=== PATIENT | male | born 1955 | race Caucasian/White ===

== ENCOUNTER 2018-03-13 19:00 | Emergency (ER) | payer MEDICARE, OTHER ==
[2018-03-13] MEDS ORDERED: SODIUM CHLORIDE 0.9% 500 ML 500 ML IV STA (19:54)
[2018-03-13] MEDS ORDERED: IPRATROPIUM-ALBUTEROL 3 ML NEB INHALATION STA (19:55)
--- NOTE | 2018-03-13 20:09 | ED ---
General Adult HPI - General Source: patient, RN notes reviewed Mode of arrival: wheelchair Limitations: no limitations <Lee Scott - Last Filed: 03/13/18 21:01> <Ryan Montalvo - Last Filed: 03/14/18 00:44> - General Chief complaint: Syncope Stated complaint: Abd/groin pain, vomting Time Seen by Provider: 03/13/18 19:00 - History of Present Illness Initial comments: This is a 63-year-old male with a past medical history significant for hypertension. Patient comes in today because he woke up yesterday had the dry heaves states she laid back in bed in the next thing he knows it was about 7 hours later. Patient states he doesn't know if he was unconscious or just sleeping. Patient states it occurred again today he woke up at 10:30 had the dry heaves and then laid back in about 5 hours later he woke up. Patient states when he wakes up he feels fine he has no chest pain no difficulty breathing no shortness of breath. Patient states currently his only symptom is that he feels a little weak diffusely because he has not been able to eat or drink lately because it makes him nauseous. Patient states usually he stays up late until 2:00 or so in the morning. Patient denies any fever chills. Patient states he continues to smoke. Patient denies any drug use. Patient states earlier today he noted a little right lower quadrant abdominal pain as well and still at hurts if you palpate that area. Patient denies dysuria hematuria urinary frequency. (Lee Scott) - Related Data Home Medications Medication Instructions Recorded Confirmed Aspirin 325 mg PO HS 03/13/18 03/13/18 Levocetirizine Dihydrochloride 5 mg PO HS 03/13/18 03/13/18 [Xyzal] Lisinopril [Zestril] 10 mg PO HS 03/13/18 03/13/18 Vitamin D3(Unknown) 2 tab PO DAILY 03/13/18 03/13/18 Allergies Allergy/AdvReac Type Severity Reaction Status Date / Time No Known Allergies Allergy Verified 03/13/18 20:00 Review of Systems ROS Other: All systems not noted in ROS Statement are negative. <Lee Scott - Last Filed: 03/13/18 21:01> ROS Other: All systems not noted in ROS Statement are negative. <Ryan Montalvo - Last Filed: 03/14/18 00:44> ROS Statement: Those systems with pertinent positive or pertinent negative responses have been documented in the HPI. Past Medical History Past Medical History: Coronary Artery Disease (CAD), Hypertension, Myocardial Infarction ([place]) History of Any Multi-Drug Resistant Organisms: None Reported Past Surgical History: Back Surgery, Orthopedic Surgery Past Psychological History: Depression Smoking Status: Current every day smoker Past Alcohol Use History: None Reported Past Drug Use History: Marijuana <Lee Scott - Last Filed: 03/13/18 21:01> General Exam Limitations: no limitations <Lee Scott - Last Filed: 03/13/18 21:01> <SelvinRyan - Last Filed: 03/14/18 00:44> - General Exam Comments Initial Comments: GENERAL: Patient is well-developed and well-nourished. Patient is nontoxic and well- hydrated and is in no acute distress. ENT: Neck is soft and supple. No significant lymphadenopathy is noted. Oropharynx is clear. Moist mucous membranes. Neck has full range of motion without eliciting any pain. EYES: The sclera were anicteric and conjunctiva were pink and moist. Extraocular movements were intact and pupils were equal round and reactive to light. Eyelids were unremarkable. PULMONARY: Unlabored respirations. Good breath sounds bilaterally. No audible rales rhonchi or wheezing was noted. CARDIOVASCULAR: There is a regular rate and rhythm without any murmurs gallops or rubs. ABDOMEN: Mild right lower quadrant abdominal pain No palpable organomegaly was noted. There is no palpable pulsatile mass. SKIN: Skin is clear with no lesions or rashes and otherwise unremarkable. NEUROLOGIC: Patient is alert and oriented x3. Cranial nerves II through XII are grossly intact. Motor and sensory are also intact. Normal speech, volume and content. Symmetrical smile. MUSCULOSKELETAL: Normal extremities with adequate strength and full range of motion. No lower extremity swelling or edema. No calf tenderness. LYMPHATICS: No significant lymphadenopathy is noted PSYCHIATRIC: Normal psychiatric evaluation. (Lee Scott) Vital Signs 03/13/18 03/13/18 03/13/18 19:04 20:46 21:00 Temperature 98.3 F Pulse Rate 103 H 100 102 H Respiratory 18 Rate Blood Pressure 150/100 O2 Sat by Pulse 97 Oximetry 03/13/18 03/13/18 21:16 23:45 Temperature Pulse Rate 76 69 Respiratory 20 18 Rate Blood Pressure 132/72 137/78 O2 Sat by Pulse 96 96 Oximetry Medical Decision Making - Lab Data Result diagrams: 03/13/18 20:08 03/13/18 20:08 <Lee Scott - Last Filed: 03/13/18 21:01> - Lab Data Result diagrams: 03/13/18 20:08 03/13/18 20:08 <Ryan Montalvo - Last Filed: 03/14/18 00:44> - Medical Decision Making Patient's EKG shows a normal sinus rhythm at 86 bpm AR interval is 162 QRS is 80 QT interval 322 QTC is 385. Patient's EKG shows T-wave inversions in the inferior leads II, III, and F aVF as well as precordial leads V3 through V6. Patient also has Q waves in the inferior leads II, III, and F aVF. Patient has no old EKG to compare to. Dr. Au will be taking over the care of the patient at 9 PM (Lee Scott) - Lab Data Lab Results 03/13/18 03/13/18 03/13/18 Range/Units 20:00 20:08 20:08 WBC 10.5 (3.8-10.6) k/uL RBC 5.50 (4.30-5.90) m/uL Hgb 19.0 H (13.0-17.5) gm/dL Hct 55.5 H (39.0-53.0) % MCV 101.0 H (80.0-100.0) fL MCH 34.5 (25.0-35.0) pg MCHC 34.1 (31.0-37.0) g/dL RDW 12.4 (11.5-15.5) % Plt Count 277 (150-450) k/uL Neutrophils % 71 % Lymphocytes % 19 % Monocytes % 5 % Eosinophils % 3 % Basophils % 0 % Neutrophils # 7.5 (1.3-7.7) k/uL Lymphocytes # 2.0 (1.0-4.8) k/uL Monocytes # 0.6 (0-1.0) k/uL Eosinophils # 0.3 (0-0.7) k/uL Basophils # 0.0 (0-0.2) k/uL PT (9.0-12.0) sec INR (<1.2) APTT (22.0-30.0) sec D-Dimer (<0.60) mg/L FEU Sodium (137-145) mmol/L Potassium (3.5-5.1) mmol/L Chloride (98-107) mmol/L Carbon Dioxide (22-30) mmol/L Anion Gap mmol/L BUN (9-20) mg/dL Creatinine (0.66-1.25) mg/dL Est GFR (CKD-EPI)AfAm (>60 ml/min/1.73 sqM) Est GFR (CKD-EPI)NonAf (>60 ml/min/1.73 sqM) Glucose (74-99) mg/dL Calcium (8.4-10.2) mg/dL Magnesium (1.6-2.3) mg/dL Total Bilirubin (0.2-1.3) mg/dL AST (17-59) U/L ALT (21-72) U/L Alkaline Phosphatase (38-126) U/L Total Creatine Kinase 152 (55-170) U/L CK-MB (CK-2) 1.7 (0.0-2.4) ng/mL CK-MB (CK-2) Rel Index 1.1 Troponin I <0.012 (0.000-0.034) ng/mL Total Protein (6.3-8.2) g/dL Albumin (3.5-5.0) g/dL Urine Color Yellow Urine Appearance Clear (Clear) Urine pH 6.0 (5.0-8.0) Ur Specific [place] 1.014 (1.001-1.035) Urine Protein Trace H (Negative) Urine Glucose (UA) Negative (Negative) Urine Ketones Negative (Negative) Urine Blood Moderate H (Negative) Urine Nitrite Negative (Negative) Urine Bilirubin Negative (Negative) Urine Urobilinogen 3.0 (<2.0) mg/dL Ur Leukocyte Esterase Small H (Negative) Urine RBC 33 H (0-5) /hpf Urine WBC 19 H (0-5) /hpf Amorphous Sediment Rare H (None) /hpf Urine Mucus Moderate H (None) /hpf 03/13/18 03/13/18 Range/Units 20:08 20:08 WBC (3.8-10.6) k/uL RBC (4.30-5.90) m/uL Hgb (13.0-17.5) gm/dL Hct (39.0-53.0) % MCV (80.0-100.0) fL MCH (25.0-35.0) pg MCHC (31.0-37.0) g/dL RDW (11.5-15.5) % Plt Count (150-450) k/uL Neutrophils % % Lymphocytes % % Monocytes % % Eosinophils % % Basophils % % Neutrophils # (1.3-7.7) k/uL Lymphocytes # (1.0-4.8) k/uL Monocytes # (0-1.0) k/uL Eosinophils # (0-0.7) k/uL Basophils # (0-0.2) k/uL PT 11.1 (9.0-12.0) sec INR 1.0 (<1.2) APTT 25.6 (22.0-30.0) sec D-Dimer 1.55 H (<0.60) mg/L FEU Sodium 135 L (137-145) mmol/L Potassium 4.6 (3.5-5.1) mmol/L Chloride 102 (98-107) mmol/L Carbon Dioxide 23 (22-30) mmol/L Anion Gap 10 mmol/L BUN 18 (9-20) mg/dL Creatinine 1.12 (0.66-1.25) mg/dL Est GFR (CKD-EPI)AfAm 82 (>60 ml/min/1.73 sqM) Est GFR (CKD-EPI)NonAf 71 (>60 ml/min/1.73 sqM) Glucose 119 H (74-99) mg/dL Calcium 9.9 (8.4-10.2) mg/dL Magnesium 2.3 (1.6-2.3) mg/dL Total Bilirubin 1.5 H (0.2-1.3) mg/dL AST 40 (17-59) U/L ALT 38 (21-72) U/L Alkaline Phosphatase 55 (38-126) U/L Total Creatine Kinase (55-170) U/L CK-MB (CK-2) (0.0-2.4) ng/mL CK-MB (CK-2) Rel Index Troponin I (0.000-0.034) ng/mL Total Protein 7.9 (6.3-8.2) g/dL Albumin 4.5 (3.5-5.0) g/dL Urine Color Urine Appearance (Clear) Urine pH (5.0-8.0) Ur Specific [place] (1.001-1.035) Urine Protein (Negative) Urine Glucose (UA) (Negative) Urine Ketones (Negative) Urine Blood (Negative) Urine Nitrite (Negative) Urine Bilirubin (Negative) Urine Urobilinogen (<2.0) mg/dL Ur Leukocyte Esterase (Negative) Urine RBC (0-5) /hpf Urine WBC (0-5) /hpf Amorphous Sediment (None) /hpf Urine Mucus (None) /hpf Disposition <Lee Scott - Last Filed: 03/13/18 21:01> Is patient prescribed a controlled substance at d/c from ED?: No <Ryan Montalvo - Last Filed: 03/14/18 00:44> Clinical Impression: Syncope, Vomiting Disposition: Left Against Medical Advice Condition: Undetermined Instructions: Acute Nausea and Vomiting (ED), Syncope (ED) Referrals: Dayton Neff MD [Primary Care Provider] - 1-2 days
[2018-03-13 20:22] LABS: Basophils % (A) 0 %; Eosinophils # (A) 0.3 k/uL (0-0.7); Eosinophils % (A) 3 %; Lymphocytes % (A) 19 %; MCH 34.5 pg (25.0-35.0); MCHC 34.1 g/dL (31.0-37.0); Mean Platelet Volume 7.3; Monocytes # (A) 0.6 k/uL (0-1.0); Monocytes % (A) 5 %; Neutrophils # (A) 7.5 k/uL (1.3-7.7); Neutrophils % (A) 71 %; Platelet Count 277 k/uL (150-450); RDW 12.4 % (11.5-15.5); WBC 10.5 k/uL (3.8-10.6)
[2018-03-13 20:29] LABS: HCT 55.5 % (39.0-53.0)
--- NOTE | 2018-03-13 20:35 | XR ---
EXAMINATION TYPE: XR chest 2V DATE OF EXAM: 03/13/2018 COMPARISON: 09/19/2011 HISTORY: Chest pain TECHNIQUE: Frontal and lateral views of the chest are obtained. FINDINGS: There is no heart failure nor confluent pneumonic infiltrate. Costophrenic angles are alex r. Heart size is normal. Bony thorax is intact. IMPRESSION: No active cardiopulmonary disease. Normal heart. No change.
[2018-03-13 20:40] LABS: Albumin 4.5 g/dL (3.5-5.0); Calcium 9.9 mg/dL (8.4-10.2); Magnesium 2.3 mg/dL (1.6-2.3); Potassium 4.6 mmol/L (3.5-5.1); Total Bilirubin 1.5 mg/dL (0.2-1.3); Total Protein 7.9 g/dL (6.3-8.2)
[2018-03-13 20:42] LABS: Amorphous Sediment,Urine Rare /hpf; Appearance,Urine Clear (Clear); Bilirubin,Urine Negative (Negative); Blood,Urine Moderate (Negative); Color,Urine Yellow; Glucose,Urine (UA) Negative (Negative); Ketones,Urine Negative (Negative); Leukocyte Esterase,Urine Small (Negative); Mucus,Urine Moderate /hpf; Nitrite,Urine Negative (Negative); Protein,Urine Trace (Negative); RBC,Urine 33 /hpf (0-5); Specific Gravity,Urine 1.014 (1.001-1.035); WBC,Urine 19 /hpf (0-5)
[2018-03-13 20:44] LABS: Partial Thromboplastin Time 25.6 sec (22.0-30.0); Prothrombin Time 11.1 sec (9.0-12.0)
[2018-03-13 20:48] LABS: Creatine Kinase 152 U/L (55-170)
[2018-03-13 21:01] LABS: Creatine Kinase MB 1.7 ng/mL (0.0-2.4); Troponin I <0.012 ng/mL (0.000-0.034)
[2018-03-13 21:03] LABS: D-Dimer 1.55 mg/L FEU (<0.60)
--- NOTE | 2018-03-13 22:52 | CT ---
EXAMINATION TYPE: CT ChestAbdPelvis w con DATE OF EXAM: 03/13/2018 COMPARISON: CT abdomen pelvis 09/19/2011 HISTORY: LUQ pain, nausea, groin pain, syncope CT DLP: 1916.8 mGycm Automated exposure control for dose reduction was used. CONTRAST: CT scan of the chest, abdomen and pelvis is performed without Oral Contrast and with IV Contrast, pat ient injected with 100 mL of Isovue 300. FINDINGS: The lungs are clear of infiltrate. There is no pleural effusion. There is no mediastinal adenopathy. There are no hilar masses. Heart size is normal. Thoracic aorta is intact. There is no evidence of an eurysm or dissection. There are clips from cholecystectomy. Liver spleen pancreas appear normal. Bile ducts are not dilated . The stomach appears fairly normal. There is no adrenal mass. Kidneys show satisfactory contrast opacification. There is right-sided hydronephrosis. There is a 5 m m calculus at the proximal right ureter. There is no retroperitoneal adenopathy. Bladder distends smoothly. There is no free fluid in the pelvis. There is no inguinal hernia. I see n o intestinal wall thickening. There are no dilated loops. There is 7 mm calculus in the left kidney. There is no evidence of free air. There is no mesenteric edema. I see no intestinal wall thickening. The thoracic and lumbar vertebra appear intact. There is facet arthropathy and calcified posterior di sc herniation at L4-5 with moderately severe bony spinal stenosis.: IMPRESSION: Nonobstructing left renal calculus. Right side renal obstruction and calculus at the prox imal right ureter. There is clearing of the tiny calculus in the distal right ureter compared to old exam. Severe L4-5 bony spinal stenosis unchanged.
[2018-03-14 00:38] VITALS: RESP 18
[2018-03-14 00:53] VITALS: BP 139/90; PULSE 79; TEMP 98
== END 2018-03-14 00:53 | disposition left against medical advice (07) ==
LOC: EC 19:00
DX: R55 Syncope and collapse (principal); R11.10 Vomiting, unspecified; R10.31 Right lower quadrant pain; I25.10 Atherosclerotic heart disease of native coronary artery without angina pectoris; I10 Essential (primary) hypertension; I25.2 Old myocardial infarction; F17.200 Nicotine dependence, unspecified, uncomplicated; Z98.890 Other specified postprocedural states; Z79.82 Long term (current) use of aspirin; Z79.899 Other long term (current) drug therapy
CPT/HCPCS: 36415; 94640; 93005; 85379; 80053; 82550; 82553; 83735; 84484; 85025; 85610; 85730; 81001; 71046; 71260; 74177; 99284; 96360; 96361 ×4; Q9967

== ENCOUNTER 2020-05-25 15:47 | Emergency (ER) | payer MEDICARE, OTHER ==
[2020-05-25 19:07] LABS: Appearance,Urine Clear (Clear); Bilirubin,Urine Negative (Negative); Blood,Urine Large (Negative); Color,Urine Yellow; Glucose,Urine (UA) Negative (Negative); Ketones,Urine Negative (Negative); Leukocyte Esterase,Urine Negative (Negative); Mucus,Urine Rare /hpf; Nitrite,Urine Negative (Negative); PH, Urine 5.5 (5.0-8.0); Protein,Urine 1+ (Negative); RBC,Urine >182 /hpf (0-5); Specific Gravity,Urine 1.023 (1.001-1.035); WBC,Urine 3 /hpf (0-5)
[2020-05-25] MEDS ORDERED: ONDANSETRON 4 MG/2 ML VIAL IVP STA (19:11)
[2020-05-25] MEDS ORDERED: MORPHINE SULFATE 4 MG/ML SYRINGE IV STA (19:11)
[2020-05-25] MEDS ORDERED: SODIUM CHLORIDE 0.9% 1,000 ML IV STA (19:11)
--- NOTE | 2020-05-25 19:25 | ED ---
Abdominal Pain HPI - General Chief Complaint: Abdominal Pain Stated Complaint: abd pain Time Seen by Provider: 05/25/20 19:02 Source: patient, RN notes reviewed Mode of arrival: wheelchair Limitations: no limitations - History of Present Illness Initial Comments: Patient is a 65-year-old male that presents to the emergency department complaining of left flank pain and abdominal pain. He notes that he does have a history of kidney stones in the last time he had when he had to get it surgically broken up and removed. He notes that he drinks approximately a pot of coffee in the morning 32-40 ounces of water throughout the day and then 2 cans of soda before bed daily. He noted that his pain was approximately a 8-9 out of 10 constant unrelieved over the last week. He noted that he tried at home remedy with [id number] pain medications and fluids with no relief. He was in mild distress and pain while laying in bed during exam and interview. He denied any hematuria chest pain shortness of breath headache vomiting diarrhea constipation fever fatigue chills - Related Data Home Medications Medication Instructions Recorded Confirmed lisinopriL [Zestril] 10 mg PO HS 03/13/18 05/25/20 Albuterol Inhaler [Ventolin Hfa 2 puff INHALATION RT-QID PRN 05/25/20 05/25/20 Inhaler] Aspirin EC [Ecotrin Low Dose] 81 mg PO DAILY 05/25/20 05/25/20 Atorvastatin Calcium [Lipitor] 40 mg PO DAILY 05/25/20 05/25/20 Cephalexin [Keflex] 500 mg PO Q8HR 05/25/20 05/25/20 Fluticasone Propionate [Flovent 1 puff INHALATION RT-BID 05/25/20 05/25/20 Hfa 44 mcg] Allergies Allergy/AdvReac Type Severity Reaction Status Date / Time No Known Allergies Allergy Verified 05/25/20 20:45 Review of Systems ROS Statement: Those systems with pertinent positive or pertinent negative responses have been documented in the HPI. ROS Other: All systems not noted in ROS Statement are negative. Past Medical History Past Medical History: Coronary Artery Disease (CAD), Hypertension, Myocardial Infarction ([place]) Last Myocardial Infarction Date:: 2008 History of Any Multi-Drug Resistant Organisms: None Reported Past Surgical History: Back Surgery, Orthopedic Surgery Past Anesthesia/Blood Transfusion Reactions: No Reported Reaction Past Psychological History: Depression Smoking Status: Current every day smoker Past Alcohol Use History: None Reported Past Drug Use History: Marijuana General Exam Limitations: no limitations General appearance: alert, in no apparent distress, obese Head exam: Present: atraumatic, normocephalic, normal inspection Eye exam: Present: normal appearance, PERRL, EOMI. Absent: scleral icterus, conjunctival injection, periorbital swelling ENT exam: Present: normal exam, mucous membranes moist Neck exam: Present: normal inspection. Absent: tenderness, meningismus, lymphadenopathy Respiratory exam: Present: normal lung sounds bilaterally. Absent: respiratory distress, wheezes, rales, rhonchi, stridor Cardiovascular Exam: Present: regular rate, normal rhythm, normal heart sounds. Absent: systolic murmur, diastolic murmur, rubs, gallop, clicks GI/Abdominal exam: Present: soft, tenderness (Lower abdomen, patient states general discomfort.), normal bowel sounds. Absent: distended, guarding, re bound, rigid Extremities exam: Present: normal inspection, full ROM, normal capillary refill. Absent: tenderness, pedal edema, joint swelling, calf tenderness Back exam: Present: normal inspection, CVA tenderness (L) Neurological exam: Present: alert, oriented X3, CN II-XII intact Psychiatric exam: Present: normal affect, normal mood Skin exam: Present: warm, dry, intact, normal color. Absent: rash Course Vital Signs 05/25/20 05/25/20 18:35 21:37 Temperature 98.3 F 98.1 F Pulse Rate 84 68 Respiratory 20 16 Rate Blood Pressure 178/79 158/86 O2 Sat by Pulse 97 96 Oximetry Medical Decision Making - Medical Decision Making 64-year-old male complaining of left flank pain with a history of kidney stones. Labs, KUB, 1 L normal saline, 4 mg of Zofran, 4 mg of morphine ordered. Labs: White blood cells 11.1, creatinine 1.56 elevated from previous study, large amounts red blood cells in urine. KUB showed 13 mm stone, CT of the abdomen and pelvis ordered to further evaluate. CT of abdomen and pelvis shows mild hydronephrosis, 4 mm stone in the left ureter. Case discussed with Dr. Diaz patient to discharge home with outpatient follow- up. - Lab Data Result diagrams: 05/25/20 19:29 05/25/20 19:29 Lab Results 05/25/20 05/25/20 05/25/20 Range/Units 18:40 19:29 19:29 WBC 11.1 H (3.8-10.6) k/uL RBC 5.25 (4.30-5.90) m/uL Hgb 18.5 H (13.0-17.5) gm/dL Hct 51.8 (39.0-53.0) % MCV 98.6 (80.0-100.0) fL MCH 35.2 H (25.0-35.0) pg MCHC 35.7 (31.0-37.0) g/dL RDW 12.0 (11.5-15.5) % Plt Count 238 (150-450) k/uL MPV 7.6 Neutrophils % 79 % Lymphocytes % 9 % Monocytes % 6 % Eosinophils % 4 % Basophils % 0 % Neutrophils # 8.8 H (1.3-7.7) k/uL Lymphocytes # 1.0 (1.0-4.8) k/uL Monocytes # 0.7 (0-1.0) k/uL Eosinophils # 0.4 (0-0.7) k/uL Basophils # 0.0 (0-0.2) k/uL Sodium 137 (137-145) mmol/L Potassium 4.8 (3.5-5.1) mmol/L Chloride 106 (98-107) mmol/L Carbon Dioxide 21 L (22-30) mmol/L Anion Gap 10 mmol/L BUN 15 (9-20) mg/dL Creatinine 1.56 H (0.66-1.25) mg/dL Est GFR (CKD-EPI)AfAm 54 (>60 ml/min/1.73 sqM) Est GFR (CKD-EPI)NonAf 47 (>60 ml/min/1.73 sqM) Glucose 102 H (74-99) mg/dL Calcium 9.8 (8.4-10.2) mg/dL Total Bilirubin 1.0 (0.2-1.3) mg/dL AST 31 (17-59) U/L ALT 28 (4-49) U/L Alkaline Phosphatase 89 (38-126) U/L Total Protein 7.6 (6.3-8.2) g/dL Albumin 4.4 (3.5-5.0) g/dL Lipase 98 (23-300) U/L Urine Color Yellow Urine Appearance Clear (Clear) Urine pH 5.5 (5.0-8.0) Ur Specific [place] 1.023 (1.001-1.035) Urine Protein 1+ H (Negative) Urine Glucose (UA) Negative (Negative) Urine Ketones Negative (Negative) Urine Blood Large H (Negative) Urine Nitrite Negative (Negative) Urine Bilirubin Negative (Negative) Urine Urobilinogen 3.0 (<2.0) mg/dL Ur Leukocyte Esterase Negative (Negative) Urine RBC >182 H (0-5) /hpf Urine WBC 3 (0-5) /hpf Urine Mucus Rare H (None) /hpf - Radiology Data Radiology results: report reviewed, image reviewed KUB: Nonacute abdomen. Left renal calculus is apparently increased in size compared to old exam. 13 mm rounded calcification over the lower pole left kidney. CT of the abdomen and pelvis: Left-sided hydronephrosis with obstructing calculus in the proximal left ureter. Bilateral renal calculi. Left renal calculus increased compared to old exam. There is clearing of the obstruction of the right kidney compared to old exam. Disposition Clinical Impression: Kidney stone on left side Disposition: HOME SELF-CARE Condition: Stable Instructions (If sedation given, give patient instructions): Kidney Stones (ED) Additional Instructions: Please return to the Emergency Department if symptoms worsen or any other concerns. Follow-up with primary care in 3-5 days. Consult urology. Increase fluid intake to at least a gallon. Try to avoid coffee and/or sodas. Take [id number] anti-inflammatories for pain management. Is patient prescribed a controlled substance at d/c from ED?: No Referrals: Dayton Neff MD [Primary Care Provider] - 1-2 days Time of Disposition: 22:13
[2020-05-25 19:51] LABS: Basophils % (A) 0 %; Eosinophils # (A) 0.4 k/uL (0-0.7); Eosinophils % (A) 4 %; HCT 51.8 % (39.0-53.0); HGB 18.5 gm/dL (13.0-17.5); Lymphocytes % (A) 9 %; MCH 35.2 pg (25.0-35.0); MCHC 35.7 g/dL (31.0-37.0); MCV 98.6 fL (80.0-100.0); Mean Platelet Volume 7.6; Monocytes # (A) 0.7 k/uL (0-1.0); Monocytes % (A) 6 %; Neutrophils # (A) 8.8 k/uL (1.3-7.7); Neutrophils % (A) 79 %; Platelet Count 238 k/uL (150-450); RBC 5.25 m/uL (4.30-5.90); WBC 11.1 k/uL (3.8-10.6)
--- NOTE | 2020-05-25 19:57 | XR ---
EXAMINATION TYPE: XR KUB DATE OF EXAM: 05/25/2020 COMPARISON: 03/17/2018 HISTORY: Double pain TECHNIQUE: 2 views upright FINDINGS: There is no sign of intestinal obstruction or pneumoperitoneum. Fecal pattern is normal. Heydi ng bases are clear. There is 13 mm rounded calcification over the lower pole left kidney. IMPRESSION: Nonacute abdomen. Left renal calculus is apparently increased in size compared to old exa m.
[2020-05-25 20:02] LABS: Albumin 4.4 g/dL (3.5-5.0); Calcium 9.8 mg/dL (8.4-10.2); Potassium 4.8 mmol/L (3.5-5.1); Total Protein 7.6 g/dL (6.3-8.2)
--- NOTE | 2020-05-25 21:38 | CT ---
EXAMINATION TYPE: CT abdomen pelvis wo con DATE OF EXAM: 05/25/2020 COMPARISON: 03/13/2018 HISTORY: Left flank pain CT DLP: 1304.4 mGycm Automated exposure control for dose reduction was used. Images obtained from the diaphragm to the floor the pelvis without contrast. Lung bases are clear. There is no pleural effusion. Heart size is normal. There are clips from cholecystectomy. Liver is intact. Spleen is intact. There is no evidence of panc reatic mass. Stomach is intact. The bile ducts are not dilated. Kidneys have normal size. There is bilateral renal calculi that measure up to 13 mm. There is left-si ded hydronephrosis. There is a 4 mm obstructing calculus in the proximal left ureter. The right urete r is not dilated. There is 3 mm calculus lower pole right kidney. There is no retroperitoneal adenopa thy. Bladder distends smoothly. There is no inguinal hernia. There is no mesenteric edema. There is no ascites or free air. There is no evidence of pelvic mass. T here is no bowel obstruction. There is no sign of thickened appendix. Appendix is posterior and appea rs normal. Lumbar spine is intact. Bony pelvis appears intact. IMPRESSION: Left-sided hydronephrosis with obstructing calculus in the proximal left ureter. Bilateral renal calc clary. Left renal calculus increased compared to old exam. There is clearing of the obstruction of the right kidney compared to old exam.
[2020-05-25 22:03] VITALS: BP 158/86; PULSE 68; RESP 16; TEMP 98.1
== END 2020-05-25 23:00 | disposition home or self-care (01) ==
LOC: EC 15:47
DX: N13.2 Hydronephrosis with renal and ureteral calculous obstruction (principal); I10 Essential (primary) hypertension; I25.2 Old myocardial infarction; F32.9 Major depressive disorder, single episode, unspecified; I25.10 Atherosclerotic heart disease of native coronary artery without angina pectoris; F17.200 Nicotine dependence, unspecified, uncomplicated; Z79.82 Long term (current) use of aspirin; Z79.899 Other long term (current) drug therapy
CPT/HCPCS: 36415; 80053; 83690; 85025; 81001; 74018; 74176; 99284; 96374; 96375; 96361; J2270; J2405

== ENCOUNTER 2020-05-26 18:34 | Inpatient (IN) | payer MEDICARE, OTHER ==
--- NOTE | 2020-05-26 22:20 | ED ---
Recheck HPI - General Chief Complaint: Abdominal Pain Stated Complaint: kidney stone Time Seen by Provider: 05/26/20 22:17 Source: patient, RN notes reviewed, old records reviewed Mode of arrival: wheelchair Limitations: no limitations - History of Present Illness Initial Comments: This is a 65-year-old male DF for evaluation patient Dese for evaluation of severe kidney stone pain. Intractable kidney stone pain with nausea and vomiting. Patient states pain medications at home are not working. Patient states the pain drove him to call the hospital to make comments regarding possibility of harming himself. Patient not suicidal. Is complaining of severe pain he does have history of kidney stones MD Complaint: other (Positive kidney stones) -: days(s) Returns Today for: persistent/worsening pain related to initial visit Symptoms Since Prior Visit: worsening pain Context: ran out of medication Associated Symptoms: abdominal pain Treatments Prior to Arrival: Given Pain Meds on - Related Data Home Medications Medication Instructions Recorded Confirmed lisinopriL [Zestril] 10 mg PO HS 03/13/18 05/26/20 Albuterol Inhaler [Ventolin Hfa 2 puff INHALATION RT-QID PRN 05/25/20 05/26/20 Inhaler] Aspirin EC [Ecotrin Low Dose] 81 mg PO HS 05/25/20 05/27/20 Atorvastatin Calcium [Lipitor] 40 mg PO HS 05/25/20 05/27/20 Fluticasone Propionate [Flovent 1 puff INHALATION RT-BID 05/25/20 05/26/20 Hfa 44 mcg] Allergies Allergy/AdvReac Type Severity Reaction Status Date / Time No Known Allergies Allergy Verified 05/26/20 23:32 Review of Systems ROS Statement: Those systems with pertinent positive or pertinent negative responses have been documented in the HPI. ROS Other: All systems not noted in ROS Statement are negative. Past Medical History Past Medical History: Coronary Artery Disease (CAD), Hypertension, Myocardial Infarction ([place]) Additional Past Medical History / Comment(s): kidney stones Last Myocardial Infarction Date:: 2008 History of Any Multi-Drug Resistant Organisms: None Reported Past Surgical History: Back Surgery, Orthopedic Surgery Past Anesthesia/Blood Transfusion Reactions: No Reported Reaction Past Psychological History: Depression Smoking Status: Current every day smoker Past Alcohol Use History: None Reported Past Drug Use History: Marijuana General Exam Limitations: no limitations General appearance: alert, in no apparent distress, anxious, in distress (Pain control) Head exam: Present: atraumatic, normocephalic, normal inspection Eye exam: Present: normal appearance, PERRL, EOMI. Absent: scleral icterus, conjunctival injection, periorbital swelling ENT exam: Present: normal exam, mucous membranes moist Neck exam: Present: normal inspection. Absent: tenderness, meningismus, lymphadenopathy Respiratory exam: Present: normal lung sounds bilaterally. Absent: respiratory distress, wheezes, rales, rhonchi, stridor Cardiovascular Exam: Present: regular rate, normal rhythm, normal heart sounds. Absent: systolic murmur, diastolic murmur, rubs, gallop, clicks GI/Abdominal exam: Present: soft, normal bowel sounds. Absent: distended, tenderness, guarding, rebound, rigid Extremities exam: Present: normal inspection, full ROM, normal capillary refill. Absent: tenderness, pedal edema, joint swelling, calf tenderness Back exam: Present: normal inspection Neurological exam: Present: alert, oriented X3, CN II-XII intact Psychiatric exam: Present: normal affect, normal mood Skin exam: Present: warm, dry, intact, normal color. Absent: rash Course Vital Signs 05/26/20 05/27/20 05/27/20 19:41 02:23 03:00 Temperature 99.4 F 97.6 F Pulse Rate 78 77 77 Respiratory 20 16 16 Rate Blood Pressure 156/94 106/87 O2 Sat by Pulse 98 98 98 Oximetry 05/27/20 05/27/20 08:57 14:37 Temperature 98.0 F 98.0 F Pulse Rate 60 68 Respiratory 18 18 Rate Blood Pressure 120/75 152/76 O2 Sat by Pulse 97 99 Oximetry - Reevaluation(s) Reevaluation #1: Medical record is reviewed Patient with intractable pain here in the ER Spoke patient regarding findings and results questions answered - Consultations Consultation #1: Spoke with Dr. Neff who agrees to admit this patient Medical Decision Making - Medical Decision Making 65 male with multiple kidney stones. Patient be admitted secondary to intractable pain, nephrology evaluation probably - Lab Data Result diagrams: 05/29/20 15:04 05/29/20 15:04 Lab Results 05/26/20 05/26/20 05/26/20 Range/Units 23:21 23:21 23:21 WBC 10.0 (3.8-10.6) k/uL RBC 5.20 (4.30-5.90) m/uL Hgb 18.3 H (13.0-17.5) gm/dL Hct 51.0 (39.0-53.0) % MCV 98.0 (80.0-100.0) fL MCH 35.2 H (25.0-35.0) pg MCHC 35.9 (31.0-37.0) g/dL RDW 11.8 (11.5-15.5) % Plt Count 243 (150-450) k/uL MPV 7.6 Neutrophils % 73 % Lymphocytes % 16 % Monocytes % 7 % Eosinophils % 2 % Basophils % 0 % Neutrophils # 7.4 (1.3-7.7) k/uL Lymphocytes # 1.6 (1.0-4.8) k/uL Monocytes # 0.7 (0-1.0) k/uL Eosinophils # 0.2 (0-0.7) k/uL Basophils # 0.0 (0-0.2) k/uL PT 11.5 (9.0-12.0) sec INR 1.1 (<1.2) APTT 23.7 (22.0-30.0) sec Sodium (137-145) mmol/L Potassium (3.5-5.1) mmol/L Chloride (98-107) mmol/L Carbon Dioxide (22-30) mmol/L Anion Gap mmol/L BUN (9-20) mg/dL Creatinine (0.66-1.25) mg/dL Est GFR (CKD-EPI)AfAm (>60 ml/min/1.73 sqM) Est GFR (CKD-EPI)NonAf (>60 ml/min/1.73 sqM) Glucose (74-99) mg/dL Calcium (8.4-10.2) mg/dL Total Bilirubin (0.2-1.3) mg/dL AST (17-59) U/L ALT (4-49) U/L Alkaline Phosphatase (38-126) U/L Total Protein (6.3-8.2) g/dL Albumin (3.5-5.0) g/dL Amylase (30-110) U/L Lipase (23-300) U/L Urine Color Yellow Urine Appearance Cloudy (Clear) Urine pH 5.5 (5.0-8.0) Ur Specific [place] 1.029 (1.001-1.035) Urine Protein 1+ H (Negative) Urine Glucose (UA) Negative (Negative) Urine Ketones 2+ H (Negative) Urine Blood Large H (Negative) Urine Nitrite Negative (Negative) Urine Bilirubin Negative (Negative) Urine Urobilinogen 2.0 (<2.0) mg/dL Ur Leukocyte Esterase Negative (Negative) Urine RBC >182 H (0-5) /hpf Urine WBC 7 H (0-5) /hpf Urine Mucus Rare H (None) /hpf Coronavirus (PCR) (Not Detectd) 05/26/20 05/26/20 Range/Units 23:21 23:21 WBC (3.8-10.6) k/uL RBC (4.30-5.90) m/uL Hgb (13.0-17.5) gm/dL Hct (39.0-53.0) % MCV (80.0-100.0) fL MCH (25.0-35.0) pg MCHC (31.0-37.0) g/dL RDW (11.5-15.5) % Plt Count (150-450) k/uL MPV Neutrophils % % Lymphocytes % % Monocytes % % Eosinophils % % Basophils % % Neutrophils # (1.3-7.7) k/uL Lymphocytes # (1.0-4.8) k/uL Monocytes # (0-1.0) k/uL Eosinophils # (0-0.7) k/uL Basophils # (0-0.2) k/uL PT (9.0-12.0) sec INR (<1.2) APTT (22.0-30.0) sec Sodium 135 L (137-145) mmol/L Potassium 4.8 (3.5-5.1) mmol/L Chloride 103 (98-107) mmol/L Carbon Dioxide 20 L (22-30) mmol/L Anion Gap 12 mmol/L BUN 20 (9-20) mg/dL Creatinine 1.78 H (0.66-1.25) mg/dL Est GFR (CKD-EPI)AfAm 46 (>60 ml/min/1.73 sqM) Est GFR (CKD-EPI)NonAf 40 (>60 ml/min/1.73 sqM) Glucose 83 (74-99) mg/dL Calcium 9.5 (8.4-10.2) mg/dL Total Bilirubin 1.2 (0.2-1.3) mg/dL AST 33 (17-59) U/L ALT 23 (4-49) U/L Alkaline Phosphatase 81 (38-126) U/L Total Protein 7.6 (6.3-8.2) g/dL Albumin 4.4 (3.5-5.0) g/dL Amylase 86 (30-110) U/L Lipase 86 (23-300) U/L Urine Color Urine Appearance (Clear) Urine pH (5.0-8.0) Ur Specific [place] (1.001-1.035) Urine Protein (Negative) Urine Glucose (UA) (Negative) Urine Ketones (Negative) Urine Blood (Negative) Urine Nitrite (Negative) Urine Bilirubin (Negative) Urine Urobilinogen (<2.0) mg/dL Ur Leukocyte Esterase (Negative) Urine RBC (0-5) /hpf Urine WBC (0-5) /hpf Urine Mucus (None) /hpf Coronavirus (PCR) Not Detected (Not Detectd) - Radiology Data Radiology results: report reviewed (X-ray KUB negative for acute disease), image reviewed Disposition Clinical Impression: Abdominal pain, Intractable pain, Kidney stone on left side, Kidney stone on right side Disposition: ADMITTED IP TO THIS [facility] Condition: Good Is patient prescribed a controlled substance at d/c from ED?: No
[2020-05-26] MEDS ORDERED: SODIUM CHLORIDE 0.9% 1,000 ML IV STA ×2 (22:46)
[2020-05-26] MEDS ORDERED: PANTOPRAZOLE 40 MG/10 ML VIAL IVP STA (22:46)
[2020-05-26] MEDS ORDERED: MORPHINE SULFATE 4 MG/ML SYRINGE IV STA (22:46)
[2020-05-26] MEDS ORDERED: TAMSULOSIN 0.4 MG CAP.ER.24H PO STA (22:46)
[2020-05-26] MEDS ORDERED: SODIUM CHLORIDE 0.9% 1,000 ML IV ONE (22:46)
[2020-05-26] MEDS ORDERED: SODIUM CHLORIDE 0.9% 500 ML 500 ML IV STA (22:46)
[2020-05-26] MEDS ORDERED: ONDANSETRON 4 MG/2 ML VIAL IVP STA (22:46)
[2020-05-26] MEDS ORDERED: KETOROLAC 15 MG/ML 1 ML VIAL IVP STA (22:46)
[2020-05-27 00:29] LABS: Basophils % (A) 0 %; Eosinophils # (A) 0.2 k/uL (0-0.7); Eosinophils % (A) 2 %; HGB 18.3 gm/dL (13.0-17.5); Lymphocytes # (A) 1.6 k/uL (1.0-4.8); Lymphocytes % (A) 16 %; MCH 35.2 pg (25.0-35.0); MCHC 35.9 g/dL (31.0-37.0); Mean Platelet Volume 7.6; Monocytes # (A) 0.7 k/uL (0-1.0); Monocytes % (A) 7 %; Neutrophils # (A) 7.4 k/uL (1.3-7.7); Neutrophils % (A) 73 %; Platelet Count 243 k/uL (150-450); RDW 11.8 % (11.5-15.5)
[2020-05-27 00:32] LABS: Appearance,Urine Cloudy (Clear); Bilirubin,Urine Negative (Negative); Blood,Urine Large (Negative); Color,Urine Yellow; Glucose,Urine (UA) Negative (Negative); Ketones,Urine 2+ (Negative); Leukocyte Esterase,Urine Negative (Negative); Mucus,Urine Rare /hpf; Nitrite,Urine Negative (Negative); PH, Urine 5.5 (5.0-8.0); Protein,Urine 1+ (Negative); RBC,Urine >182 /hpf (0-5); Specific Gravity,Urine 1.029 (1.001-1.035); WBC,Urine 7 /hpf (0-5)
[2020-05-27 00:33] LABS: Albumin 4.4 g/dL (3.5-5.0); Calcium 9.5 mg/dL (8.4-10.2); Total Bilirubin 1.2 mg/dL (0.2-1.3); Total Protein 7.6 g/dL (6.3-8.2)
[2020-05-27 00:35] LABS: Potassium 4.8 mmol/L (3.5-5.1)
[2020-05-27 00:40] LABS: INR 1.1 (<1.2); Partial Thromboplastin Time 23.7 sec (22.0-30.0); Prothrombin Time 11.5 sec (9.0-12.0)
--- NOTE | 2020-05-27 01:20 | XR ---
EXAM: XR Abdomen, 1 View CLINICAL HISTORY: ITS.REASON XR Reason: abdominal pain TECHNIQUE: Frontal upright view of the abdomen/pelvis. COMPARISON: 05/25/2020 FINDINGS: Intraperitoneal space: No pneumoperitoneum. Gastrointestinal tract: Moderate stool in the ascending colon is not appreciably altered. Nonspecific bowel gas pattern with slightly prominent small bowel gas in the right abdomen. Scattered gas collections throughout nondilated colon are identified with some gas in the central pelvis, presumably in the region of the distal rectosigmoid colon. Organs: Cholecystectomy clips noted in the right upper quadrant. Bones/joints: Unremarkable. Soft tissues: Postoperative changes consistent with prior abdominal wall hernia overlying the midline and right pelvis. IMPRESSION: No significant alteration from the previous examination. Nonspecific, nonobstructive bowel gas pattern with slightly prominent small bowel gas. Differential consideration includes normal variation versus enteritis. No pneumoperitoneum.
[2020-05-27] MEDS: MORPHINE SULFATE 4 MG/ML SYRINGE IVP PRN (08:53)
[2020-05-27] MEDS: TAMSULOSIN 0.4 MG CAP.ER.24H PO SCH (08:54)
[2020-05-27] MEDS: FLUTICASONE 44 MCG INHALER INHALATION SCH (19:17)
[2020-05-27] MEDS: lisinopriL 10 MG TAB PO SCH (21:07)
--- NOTE | 2020-05-27 22:04 | PN ---
PROGRESS NOTE CHIEF COMPLAINT: Flank pain and history of renal calculi. HISTORY OF PRESENT ILLNESS: This gentleman is still quite uncomfortable. He has had no fever, chills, vomiting etc. PHYSICAL EXAMINATION: Chest is clear. Cardiac exam is normal. The abdomen is not protuberant. He is tender in the left flank. IMPRESSION: Left ureteral calculus. PLAN: Continue with IV fluids and analgesics and watch to see if the stone progresses. MMODL / IJN: [id number] /
--- NOTE | 2020-05-27 22:18 | HP ---
HISTORY AND PHYSICAL CHIEF COMPLAINT: Left flank pain. HISTORY OF PRESENT ILLNESS: This is another admission for this 65-year-old obese male. He presented to the emergency room with left flank pain and apparently went home and then came back not being able to tolerate the pain. He has history of COPD, hyperlipidemia and anemia. REVIEW OF SYSTEMS: He denies fever and chills. nausea, vomiting, hematuria, chest pain, shortness of breath, chest, diabetes, etc. Past medical history, family history, personal and social histories reveal he is on lisinopril 10 mg once a day, Lipitor 40 once a day, vitamin D, Flovent, Ventolin, trazodone, and aspirin. He is ALLERGIC to PULMICORT INHALER. He does continue to smoke but does not drink. PHYSICAL EXAMINATION: Blood pressure is 140/95 with a pulse of 98, respirations of 36. He is afebrile. In general, he appeared to be obese and quite uncomfortable. Skin color is normal. Skin was dry. Head, ears, eyes, nose, mouth and throat were normal. Neck was normal. Neck veins could not be assessed. Chest demonstrated decreased breath sounds with scattered rales and occasional rhonchi. Cardiac exam demonstrates sinus rhythm with no murmurs or extra sounds. The abdomen is protuberant and soft, nontender without visceromegaly. He is tender in the flank. Extremities are normal. Neurological: He is intact. IMPRESSION: He is admitted to the hospital with diagnoses: 1. Left ureteral calculus. 2. Chronic obstructive pulmonary disease. 3. Hypertension. 4. Obesity. PLAN: 1. Bed rest. 2. IV fluids. 3. Analgesics. ODL / IJN: [id number] /
[2020-05-28] MEDS: MORPHINE SULFATE 4 MG/ML SYRINGE IVP PRN ×3 (07:37→15:10)
[2020-05-28] MEDS: TAMSULOSIN 0.4 MG CAP.ER.24H PO SCH (07:37)
[2020-05-28] MEDS: FLUTICASONE 44 MCG INHALER INHALATION SCH ×2 (08:02→19:48)
[2020-05-28] MEDS ORDERED: ATORVASTATIN 40 MG TAB PO SCH (09:00)
[2020-05-28] MEDS ORDERED: ASPIRIN 81 MG PO SCH (09:00)
[2020-05-28] MEDS: SODIUM CHLORIDE 0.9% 1,000 ML IV SCH (11:15)
[2020-05-28] MEDS: ATORVASTATIN 40 MG TAB PO SCH (20:34)
[2020-05-28] MEDS: lisinopriL 10 MG TAB PO SCH (20:34)
[2020-05-28] MEDS: ASPIRIN 81 MG PO SCH (20:34)
[2020-05-29] MEDS: MORPHINE SULFATE 4 MG/ML SYRINGE IVP PRN ×6 (00:05→23:21)
[2020-05-29] MEDS: SODIUM CHLORIDE 0.9% 1,000 ML IV SCH ×4 (04:30→23:24)
[2020-05-29] MEDS: TAMSULOSIN 0.4 MG CAP.ER.24H PO SCH (07:37)
[2020-05-29] MEDS: FLUTICASONE 44 MCG INHALER INHALATION SCH ×2 (09:03→19:21)
--- NOTE | 2020-05-29 14:23 | US ---
EXAMINATION TYPE: US kidneys/renal and bladder DATE OF EXAM: 05/29/2020 COMPARISON: NONE CLINICAL HISTORY: L. ureteral calculus progress. history of kidney stones EXAM MEASUREMENTS: Right Kidney: 12.0 x 5.9 x 5.1 cm Left Kidney: 12.7 x 5.7 x 4.7 cm Right Kidney: mild hydronephrosis Left Kidney: stone mid = 1.3cm, mild hydronephrosis Bladder: appears wnl Bilateral Jets seen: no IMPRESSION: There is mild bilateral hydronephrosis. There is 1.3 cm left renal calculus at the renal pelvis. No e vidence of a bladder mass.
[2020-05-29 15:39] LABS: Basophils % (A) 1 %; Eosinophils # (A) 0.5 k/uL (0-0.7); Eosinophils % (A) 9 %; Lymphocytes # (A) 1.2 k/uL (1.0-4.8); Lymphocytes % (A) 23 %; MCH 34.2 pg (25.0-35.0); MCHC 34.8 g/dL (31.0-37.0); MCV 98.2 fL (80.0-100.0); Mean Platelet Volume 7.5; Monocytes # (A) 0.3 k/uL (0-1.0); Monocytes % (A) 5 %; Neutrophils # (A) 3.4 k/uL (1.3-7.7); Neutrophils % (A) 62 %; Platelet Count 224 k/uL (150-450); RBC 4.69 m/uL (4.30-5.90); RDW 11.6 % (11.5-15.5); WBC 5.4 k/uL (3.8-10.6)
--- NOTE | 2020-05-29 15:50 | PN ---
PROGRESS NOTE DATE OF SERVICE: 05/28/2020 CHIEF COMPLAINT: Impacted left ureteral calculus. HISTORY OF PRESENT ILLNESS: This gentleman is fairly well but he is still having some discomfort and the pain has not generally moved down or around the torso. He has had no fever or chills. PHYSICAL EXAMINATION: Chest is clear. Cardiac exam is normal. Abdomen is soft, nontender. IMPRESSION: Left ureteral calculus. PLAN: Continue with analgesics and continue to monitor. MMODL / IJN: [id number] /
[2020-05-29 16:04] LABS: ALT 20 U/L (4-49); AST 31 U/L (17-59); African American GFR (CKD) 67 (>60 ml/min/1.73 sqM); Albumin 3.7 g/dL (3.5-5.0); Albumin/Globulin Ratio 1.4; Alkaline Phosphatase 59 U/L (38-126); Anion Gap 7 mmol/L; Blood Urea Nitrogen 17 mg/dL (9-20); Calcium 8.9 mg/dL (8.4-10.2); Carbon Dioxide 26 mmol/L (22-30); Chloride 105 mmol/L (98-107); Globulin 2.7 g/dL; Glucose 113 mg/dL (74-99); Non-African American GFR(CKD) 58 (>60 ml/min/1.73 sqM); Potassium 4.3 mmol/L (3.5-5.1); Sodium 138 mmol/L (137-145); Total Bilirubin 0.8 mg/dL (0.2-1.3); Total Protein 6.4 g/dL (6.3-8.2)
--- NOTE | 2020-05-29 16:07 | PN ---
PROGRESS NOTE DATE OF SERVICE: 05/29/2020 CHIEF COMPLAINT: Persistent left-sided flank pain. HISTORY OF PRESENT ILLNESS: This gentleman's discomfort scale is a little bit worse. There has not been any a significant change in the symptoms to suggest movement of the calculus. PHYSICAL EXAMINATION: He is afebrile. Chest is clear. Cardiac exam is normal. The abdomen is protuberant and soft. He is tender in the left flank. IMPRESSION: Left ureteral calculus. PLAN: Ultrasound of the abdomen looking for progress regarding movement of this stone. If it has not moved, he will have to be referred to Urology. MMODL / IJN: [id number] /
[2020-05-29] MEDS: ATORVASTATIN 40 MG TAB PO SCH (21:14)
[2020-05-29] MEDS: lisinopriL 10 MG TAB PO SCH (21:14)
[2020-05-29] MEDS: ASPIRIN 81 MG PO SCH (21:14)
[2020-05-29] MEDS: NICOTINE 21MG/24HR PATCH TRANSDERM SCH (21:14)
[2020-05-30] MEDS: TAMSULOSIN 0.4 MG CAP.ER.24H PO SCH (08:03)
[2020-05-30] MEDS: NICOTINE 21MG/24HR PATCH TRANSDERM SCH (08:03)
[2020-05-30] MEDS: MORPHINE SULFATE 4 MG/ML SYRINGE IVP PRN ×3 (08:04→17:44)
[2020-05-30] MEDS: FLUTICASONE 44 MCG INHALER INHALATION SCH ×2 (08:07→22:04)
[2020-05-30] MEDS: IOPAMIDOL CONTRAST (ORAL USE) VIAL PO PRN ×2 (10:26→11:42)
[2020-05-30] MEDS: SODIUM CHLORIDE 0.9% 1,000 ML IV SCH (11:41)
--- NOTE | 2020-05-30 12:03 | PN ---
PROGRESS NOTE CHIEF COMPLAINT: Persistent left flank pain. HISTORY OF PRESENT ILLNESS: This gentleman still complaining of pain in the left flank. He also has some discomfort on the right. He has had no hematuria, fever, chills, dysuria, etc. PHYSICAL EXAMINATION: Chest is clear and cardiac exam is normal. The abdomen is soft and nontender. Echocardiogram failed to demonstrate a ureteral calculus on either side. There was mild hydronephrosis. The etiology for this is not clear. His renal function remains quite good. IMPRESSION: 1. Left flank pain. 2. Mild bilateral hydronephrosis. PLAN: 1. Obtain CT of the abdomen and pelvis with contrast. 2. Urology consult. MMODL / IJN: [id number] /
--- NOTE | 2020-05-30 13:31 | CT ---
EXAMINATION TYPE: CT abdomen pelvis w con DATE OF EXAM: 05/30/2020 COMPARISON: 05/25/2020 and 03/13/2018. HISTORY: 65-year-old male severe back pain, hydronephrosis TECHNIQUE: Contiguous axial scanning of the abdomen and pelvis following administration of 100 ml Iso reilly 300 IV contrast. Delayed images through the kidneys and coronal/sagittal reconstructions perform ed. CT DLP: 3200.6 mGycm Automated exposure control for dose reduction was used. FINDINGS: Heart normal size without pericardial effusion. Lung bases clear without pleural effusion. Asymmetric elevation left hemidiaphragm is unchanged. No focal liver lesion or biliary ductal dilatation. Portal venous system is patent. Cholecystectomy clips. Scattered nonenlarged carolee hepatic lymph nodes measuring up to 6 mm. Otherwise, no mesenteric or re troperitoneal lymphadenopathy. Similar mild thickening of the right adrenal gland without discrete nodularity. Left adrenal gland an d spleen within normal limits. Nonobstructive 4 mm right lower pole renal calculus. 1.4 cm calculus within the left sided calyceal system and continued mild to moderate left hydronephro sis. The previous 6 mm mid ureteral calculus has progressed inferiorly to the distal third ureter. Previous ventral abdominal wall mesh repair. No dilated small bowel, free fluid, or free air. 8 mm cystic lesion along the anterior pancreatic body is unchanged from 03/13/2018 suggesting a benign etiology. No mesenteric or retroperitoneal lymphadenopathy. There is a saccular aneurysm from the right lateral wall of the infrarenal abdominal aorta measuring 3.3 cm, refer to coronal image 62. Normal appendix. Moderate stool burden. Proximal sigmoid diverticulosis. Mildly redundant sigmoid col on. No pericolonic inflammatory change. Mild circumferential bladder wall thickening. Left-sided pelvic phlebolith. Small right-sided inguina l hernia. No abnormal fluid collection in the pelvis or pelvic lymphadenopathy. Bones: Degenerative change of the hips. Facet arthropathy mid to lower lumbar spine. Disc osteophyte complex L4-L5 may cause a significant spinal canal stenosis. IMPRESSION: 1. THE PATIENT'S 6 MM LEFT URETERAL CALCULUS HAS PROGRESSED FROM THE MID URETER NOW INTO THE DISTAL T HIRD URETER. CONTINUED MILD TO MODERATE OBSTRUCTIVE UROPATHY. 2. A 1.4 CM CALCULUS REMAINS WITHIN A LEFT-SIDED CALYCEAL SYSTEM. 4 MM NONOBSTRUCTIVE RIGHT RENAL JESSICA CULUS. 3. 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 4. MODERATE STOOL BURDEN. MILD PROXIMAL SIGMOID DIVERTICULOSIS. 5. DISC OSTEOPHYTE COMPLEX AT L4-L5 MAY CAUSE A SIGNIFICANT SPINAL CANAL STENOSIS. CORRELATE WITH PAT IENT'S SYMPTOMS.
--- NOTE | 2020-05-30 15:18 | P.GSCN ---
History of Present Illness Consult date: 05/30/20 History of present illness: 65-year-old gentleman with a known history kidney stones. He has been having left-sided flank pain for the last couple weeks. On 05/26/20 he was in the emergency room where a computed tomography scan identified a 6 mm left ureteral calculus as well as a left renal calculus. He was discharged home to pass this stone spontaneously but the pain persisted and he ended up back in the hospital. He has been in the hospital since Sunday. Because of the persistence of pain I been asked see the patient. This patient has been seen by me in the past for stones. The computed tomography scan is reviewed and there is a 6 mm distal ureteral stone on the left. It is not easily seen on KUB due to his morbid obesity. He is still having pain. Review of Systems All systems: negative - Constitutional Denies fever, Denies weight loss - EENT Eyes: denies blurred vision Ears, nose, mouth and throat: Denies dysphagia - Cardiovascular Denies chest pain, Denies shortness of breath - Respiratory Denies cough, Denies 7 - Gastrointestinal Reports as per HPI - Genitourinary Denies dysuria, Denies hematuria - Integumentary Denies rash, Denies unusual bruising - Neurological Denies headaches, Denies syncope - Hematologic/Lymphatic Denies easy bleeding, Denies easy bruising Past Medical History Past Medical History: Coronary Artery Disease (CAD), Hypertension, Myocardial Infarction ([place]) Additional Past Medical History / Comment(s): kidney stones Last Myocardial Infarction Date:: 2008 History of Any Multi-Drug Resistant Organisms: None Reported Past Surgical History: Back Surgery, Orthopedic Surgery Past Anesthesia/Blood Transfusion Reactions: No Reported Reaction Past Psychological History: Depression Smoking Status: Current every day smoker Past Alcohol Use History: None Reported Past Drug Use History: Marijuana Medications and Allergies Home Medications Medication Instructions Recorded Confirmed Type lisinopriL [Zestril] 10 mg PO HS 03/13/18 05/26/20 History Albuterol Inhaler [Ventolin Hfa 2 puff INHALATION RT-QID PRN 05/25/20 05/26/20 History Inhaler] Aspirin EC [Ecotrin Low Dose] 81 mg PO HS 05/25/20 05/27/20 History Atorvastatin Calcium [Lipitor] 40 mg PO HS 05/25/20 05/27/20 History Cephalexin [Keflex] 500 mg PO Q8HR 05/25/20 05/26/20 History Fluticasone Propionate [Flovent 1 puff INHALATION RT-BID 05/25/20 05/26/20 History Hfa 44 mcg] Allergies Allergy/AdvReac Type Severity Reaction Status Date / Time No Known Allergies Allergy Verified 05/26/20 23:32 Surgical - Exam Vital Signs Temp Pulse Resp BP Pulse Ox 99.4 F 78 20 156/94 98 05/26/20 19:41 05/26/20 19:41 05/26/20 19:41 05/26/20 19:41 05/26/20 19:41 - General well developed, moderate distress, obese - Eyes PERRL - ENT no hearing loss - Neck trachea midline - Respiratory normal expansion, normal respiratory effort - Cardiovascular Rhythm: regular - Abdomen Abdomen: soft, tender - Genitourinary normal penis with no external lesions, testicles present - Neurologic normal coordination, normal sensation - Musculoskeletal normal posture - Psychiatric oriented to time, oriented to person, oriented to place, speech is normal, memory intact Results - Labs 05/29/20 15:04 05/29/20 15:04 Abnormal Lab Results - Last 24 Hours (Table) 05/29/20 Range/Units 15:04 Creatinine 1.30 H (0.66-1.25) mg/dL Glucose 113 H (74-99) mg/dL Diabetes panel 05/29/20 Range/Units 15:04 Sodium 138 (137-145) mmol/L Potassium 4.3 (3.5-5.1) mmol/L Chloride 105 (98-107) mmol/L Carbon Dioxide 26 (22-30) mmol/L BUN 17 (9-20) mg/dL Creatinine 1.30 H (0.66-1.25) mg/dL Glucose 113 H (74-99) mg/dL Calcium 8.9 (8.4-10.2) mg/dL AST 31 (17-59) U/L ALT 20 (4-49) U/L Alkaline Phosphatase 59 (38-126) U/L Total Protein 6.4 (6.3-8.2) g/dL Albumin 3.7 (3.5-5.0) g/dL Calcium panel 05/29/20 Range/Units 15:04 Calcium 8.9 (8.4-10.2) mg/dL Albumin 3.7 (3.5-5.0) g/dL Pituitary panel 05/29/20 Range/Units 15:04 Sodium 138 (137-145) mmol/L Potassium 4.3 (3.5-5.1) mmol/L Chloride 105 (98-107) mmol/L Carbon Dioxide 26 (22-30) mmol/L BUN 17 (9-20) mg/dL Creatinine 1.30 H (0.66-1.25) mg/dL Glucose 113 H (74-99) mg/dL Calcium 8.9 (8.4-10.2) mg/dL Adrenal panel 05/29/20 Range/Units 15:04 Sodium 138 (137-145) mmol/L Potassium 4.3 (3.5-5.1) mmol/L Chloride 105 (98-107) mmol/L Carbon Dioxide 26 (22-30) mmol/L BUN 17 (9-20) mg/dL Creatinine 1.30 H (0.66-1.25) mg/dL Glucose 113 H (74-99) mg/dL Calcium 8.9 (8.4-10.2) mg/dL Total Bilirubin 0.8 (0.2-1.3) mg/dL AST 31 (17-59) U/L ALT 20 (4-49) U/L Alkaline Phosphatase 59 (38-126) U/L Total Protein 6.4 (6.3-8.2) g/dL Albumin 3.7 (3.5-5.0) g/dL - Imaging CT scan - abdomen: report reviewed, image reviewed CT scan - pelvis: report reviewed, image reviewed Assessment and Plan Assessment: Impression: Left ureteral calculus with persistent colic Recommendations: Because this is been going on for over 2 weeks and he has persistent colic I will set him up for a left ureteroscopy and laser lithotripsy tomorrow. Later date we'll deal for left renal stone. The patient understands and consents to this procedure.
[2020-05-30] MEDS: ASPIRIN 81 MG PO SCH (20:27)
[2020-05-30] MEDS: ATORVASTATIN 40 MG TAB PO SCH (20:27)
[2020-05-30] MEDS: lisinopriL 10 MG TAB PO SCH (20:27)
[2020-05-31] MEDS: SODIUM CHLORIDE 0.9% 1,000 ML IV SCH ×3 (03:07→22:37)
[2020-05-31] MEDS: FLUTICASONE 44 MCG INHALER INHALATION SCH ×2 (07:20→21:28)
[2020-05-31] MEDS: NICOTINE 21MG/24HR PATCH TRANSDERM SCH (08:45)
[2020-05-31] MEDS: TAMSULOSIN 0.4 MG CAP.ER.24H PO SCH (08:45)
[2020-05-31] MEDS: MORPHINE SULFATE 4 MG/ML SYRINGE IVP PRN ×3 (08:46→23:51)
[2020-05-31] MEDS ORDERED: IV FLUID CONTINUATION 1,000 ML IV ONE (13:15)
[2020-05-31] MEDS ORDERED: GLYCOPYRROLATE 0.2 MG/ML 2 ML VIAL ONE (14:01)
[2020-05-31] MEDS ORDERED: ePHEDrine SULFATE/0.9% NACL/PF 50 MG/5 ML SYRINGE IV ONE (14:01)
[2020-05-31] MEDS ORDERED: LIDOCAINE 1% INJ 10MG/ML (20 ML MDV) ONE (14:01)
[2020-05-31] MEDS ORDERED: NEOSTIGMINE 1 MG/ML 10 ML VIAL ONE (14:01)
[2020-05-31] MEDS ORDERED: ROCURONIUM 10 MG/ML (5 ML VIAL) IV ONE (14:01)
[2020-05-31] MEDS ORDERED: fentaNYL (PF) 50 MCG/ML 2 ML AMP ONE (14:01)
[2020-05-31] MEDS ORDERED: PROPOFOL 10 MG/ML 20 ML VIAL IV ONE (14:01)
[2020-05-31] MEDS ORDERED: LACTATED RINGERS 1,000 ML IV ONE (14:34)
[2020-05-31] MEDS ORDERED: SODIUM CHLORIDE 0.9% 100 ML with ceFAZolin 2,000 MG IV ONE ×2 (14:34)
--- NOTE | 2020-05-31 15:03 | P.OP ---
Date of Procedure: 05/31/20 Preoperative Diagnosis: Left ureteral calculus with obstruction Postoperative Diagnosis: Same Procedure(s) Performed: Cystoscopy with left ureteroscopy and laser lithotripsy, 6 x 26 stent Anesthesia: MANDI Surgeon: Raimundo Snell Estimated Blood Loss (ml): 25 Pathology: other (Stone) Condition: stable Disposition: PACU Indications for Procedure: The patient is 65. He came in the hospital late last week with ureteral colic. He has a 8-9 mm distal ureteral stone on the left just below the iliac vessels causing pain. I was consult would yesterday. After discussing the situation the patient he will proceed with a left ureteroscopy with laser lithotripsy. He also has a left renal stone that will be dealt with at a second setting. Description of Procedure: The patient is brought to the operating suite. He is given a general endotracheal anesthesia. He's placed lithotomy position and sterile prep and drape. Cystoscopy Foroblique lens and 21-Alban[place] sheath identifies a normal anterior urethra. The prostatic urethra shows trilobar obstruction and a friable prostate. The bladder churchill inspected. The left ureteral orifice somewhat swollen the right is normal. The bladder mucosa is unremarkable. I cannot intubate the ureter with the miniscope I thus dilate the left ureteral orifice with a cone-tipped catheter. I then pass the 7-[place]banian mini ureteroscope up the ureter to the stone. With the 275 laser probe the stone was broken into tiny pieces and flushed out of the ureter. There is a lot of edema in the intramural tunnel from the manipulation as well as the point of stone lodging. I thus elected place a double-J catheter. An 035 wires passed through the ureteroscope up into the left renal pelvis. I remove the ureteroscope and backloaded the wire onto the cystoscope. Over the wires and passed a 6 x 26 double-J catheter that coils in the renal pelvis and the bladder the bladder strain the patient is awakened and returned recovery room good condition Impression successful left ureteroscopy laser lithotripsy. The patient be discharged home tomorrow upon recovery. He'll follow-up in the office in one week for cystoscopy stent removal.
--- NOTE | 2020-05-31 15:30 | FL ---
EXAMINATION TYPE: FL urography retrograde DATE OF EXAM: 05/31/2020 FLUOROSCOPY Fluoroscopy time of 12 seconds was used during intervention for left renal calculus. 1 image/s docum ent/s the procedure.
[2020-05-31] MEDS ORDERED: ONDANSETRON 4 MG/2 ML VIAL IVP ONE (15:42)
--- NOTE | 2020-05-31 20:43 | PN ---
PROGRESS NOTE CHIEF COMPLAINT: Flank pain. HISTORY OF PRESENT ILLNESS: This gentleman is still having discomfort. He is being seen by Urology. Ultrasound did not demonstrate a ureteral stone, but Urology feels that there is one, and he is going for cystoscopy today. PHYSICAL EXAMINATION: Abdomen is soft. Chest is clear. Cardiac exam is normal. IMPRESSION: Possible left ureteral calculus. PLAN: Cystoscopy today. MMODL / IJN: [id number] /
[2020-05-31] MEDS: lisinopriL 10 MG TAB PO SCH (22:01)
[2020-05-31] MEDS: ATORVASTATIN 40 MG TAB PO SCH (22:01)
[2020-05-31] MEDS: ASPIRIN 81 MG PO SCH (22:01)
[2020-06-01] MEDS: SODIUM CHLORIDE 0.9% 1,000 ML IV SCH (04:43)
[2020-06-01] MEDS: NICOTINE 21MG/24HR PATCH TRANSDERM SCH (08:11)
[2020-06-01] MEDS: TAMSULOSIN 0.4 MG CAP.ER.24H PO SCH (08:11)
[2020-06-01] MEDS: FLUTICASONE 44 MCG INHALER INHALATION SCH (08:55)
--- NOTE | 2020-06-01 09:30 | P.PN ---
Progress Note - Text Progress Note Date: 06/01/20 The patient underwent successful removal of his left ureteral calculus yesterday. He reports mild discomfort this morning, predominantly in the right lower quadrant. He is afebrile with stable vital signs. He reports slight hematuria, which is not unexpected. He is urologically stable for discharge and will follow up with Dr. Snell in 1 week to undergo office cystoscopy with stent removal. In the meantime, he should continue to receive tamsulosin. Please notify us if we can be of any further assistance.
[2020-06-01 11:54] VITALS: BP 128/78; PULSE 69; RESP 17; TEMP 97.8
--- NOTE | 2020-06-02 07:42 | DS ---
DISCHARGE SUMMARY CHIEF COMPLAINT: Left flank pain. HISTORY OF PRESENT ILLNESS AND PHYSICAL EXAMINATION: Details of this man's history and physical can be found in the initial workup. LABORATORY STUDIES: While he was in the hospital he had laboratory studies, details of which can be found in the laboratory section of his chart. COURSE IN THE HOSPITAL: After admission he was placed on bedrest and started on intravenous fluids and analgesics. He failed to pass the stone. An ultrasound failed to demonstrate a stone, but he was seen by Urology who felt that he still had one in his left ureter and took him to the operating room for cystoscopy and lithotripsy of the stone. He is doing well. It was felt that he could go home on the . He will go home on light activity about the house. He will be followed up in several days. FINAL DIAGNOSIS: Left ureteral calculus. OPERATIONS: Cystoscopy and lithotripsy. CONSULTATIONS: Urology. He is improved. MMODL / IJN: [id number] /
== END 2020-06-01 16:00 | disposition home health service (06) | DRG 661 ==
LOC: EC 18:34 → INTOOBSV 22:46 → 5NMEDONC 22:46 → OBSVTOIN 05-28 08:53
PROVIDERS: ADMIT Family Medicine; ATTEND Family Medicine
PROC: 0T768DZ Dilation of Right Ureter with Intraluminal Device, Via Natural or Artificial Opening Endoscopic (ICD-10-PCS; principal; 2020-05-31 08:45)
PROC: 0TC78ZZ Extirpation of Matter from Left Ureter, Via Natural or Artificial Opening Endoscopic (ICD-10-PCS; 2020-05-31 08:45)
DX: N13.2 Hydronephrosis with renal and ureteral calculous obstruction (principal); Z79.82 Long term (current) use of aspirin; Z79.51 Long term (current) use of inhaled steroids; I25.10 Atherosclerotic heart disease of native coronary artery without angina pectoris; I10 Essential (primary) hypertension; I25.2 Old myocardial infarction; Z87.442 Personal history of urinary calculi; F17.200 Nicotine dependence, unspecified, uncomplicated; J44.9 Chronic obstructive pulmonary disease, unspecified; Z20.822 Contact with and (suspected) exposure to COVID-19; E78.5 Hyperlipidemia, unspecified
CPT/HCPCS: 36415; 74018; 74176; 74177; 74420; 76770; 80053; 81001; 82150; 82365; 83690; 85025; 85610; 85730; 87635; 94640; 94760; 96360; 96361; 96374; 96375; 99284; 99285

== ENCOUNTER 2024-04-18 13:06 | Inpatient (IN) | payer MEDICARE, OTHER ==
--- NOTE | 2024-04-18 13:47 | ED ---
General Adult HPI - General Chief complaint: Fall Stated complaint: fall out of wheelchair Time Seen by Provider: 04/18/24 13:31 Source: patient, EMS, RN notes reviewed Mode of arrival: EMS Limitations: no limitations - History of Present Illness Initial comments: 69-year-old male presenting to the emergency department via EMS for chief complaint of a fall. Patient states that he was outside when he fell holding the back of his wheelchair onto his left hip. He denies hitting his head or loss conscious over the fall. States he is having severe pain in the left hip that radiates into the front of his groin. Denies blood thinner use. Denies loss of bladder bowel continence or saddle anesthesias injury. He denies syncopal events stating that he slipped. No other acute complaints at this time. - Related Data Home Medications Medication Instructions Recorded Confirmed lisinopriL [Zestril] 10 mg PO HS 03/13/18 05/26/20 Albuterol Inhaler [Ventolin Hfa 2 puff INHALATION RT-QID PRN 05/25/20 05/26/20 Inhaler] Aspirin EC [Ecotrin Low Dose] 81 mg PO HS 05/25/20 05/27/20 Atorvastatin Calcium [Lipitor] 40 mg PO HS 05/25/20 05/27/20 Fluticasone Propionate [Flovent 1 puff INHALATION RT-BID 05/25/20 05/26/20 Hfa 44 mcg] Allergies Allergy/AdvReac Type Severity Reaction Status Date / Time No Known Allergies Allergy Verified 05/26/20 23:32 Review of Systems ROS Statement: Those systems with pertinent positive or pertinent negative responses have been documented in the HPI. ROS Other: All systems not noted in ROS Statement are negative. Past Medical History Past Medical History: Coronary Artery Disease (CAD), Hypertension, Myocardial Infarction ([place]) Additional Past Medical History / Comment(s): kidney stones Last Myocardial Infarction Date:: 2008 History of Any Multi-Drug Resistant Organisms: None Reported Past Surgical History: Back Surgery, Orthopedic Surgery Past Anesthesia/Blood Transfusion Reactions: No Reported Reaction Past Psychological History: Depression Smoking Status: Current every day smoker Past Alcohol Use History: None Reported Past Drug Use History: Marijuana General Exam Limitations: no limitations General appearance: alert, in no apparent distress, obese Respiratory exam: Present: normal lung sounds bilaterally. Absent: respiratory distress, wheezes, rales, rhonchi, stridor Cardiovascular Exam: Present: regular rate, normal rhythm, normal heart sounds. Absent: systolic murmur, diastolic murmur, rubs, gallop, clicks GI/Abdominal exam: Present: soft, normal bowel sounds. Absent: distended, tenderness, guarding, rebound, rigid Left Hip exam: Present: tenderness. Absent: full ROM, swelling, abrasion, ecchymosis, deformity, crepitus Upper Leg exam: Present: normal inspection, tenderness (superior anterior leg) Lower Leg exam: Present: normal inspection Gait: not tested/not observed Back exam: Present: normal inspection Neurological exam: Present: alert, oriented X3, CN II-XII intact Course Vital Signs 04/18/24 13:07 Temperature 98.6 F Pulse Rate 78 Respiratory 16 Rate Blood Pressure 125/86 O2 Sat by Pulse 98 Oximetry Medical Decision Making - Medical Decision Making Was pt. sent in by a medical professional or institution (, PA, HIGHWAY ENGINEERING TECHNICIAN, urgent care, hospital, or senior care...) When possible be specific @ -No Did you speak to anyone other than the patient for history (EMS, parent, family, police, friend...)? What history was obtained from this source @ -No Did you review nursing and triage notes (agree or disagree)? Why? @ -I reviewed and agree with nursing and triage notes Were old charts reviewed (outside hosp., previous admission, EMS record, old EKG, old radiological studies, urgent care reports/EKG's, senior care records)? Report findings @ -No old charts were reviewed Differential Diagnosis (chest pain, altered mental status, abdominal pain women, abdominal pain men, vaginal bleeding, weakness, fever, dyspnea, syncope, head ache, dizziness, GI bleed, back pain, seizure, CVA, palpatations, mental health, musculoskeletal)? @ -Differential Musculoskeletal Muscular strain, contusion, ligament sprain, fracture, arthritis, septic arthritis, bursitis, cellulitis, muscle spasm, nerve compression, DVT, arterial occlusion, herpes zoster, electrolyte abnormality, tumor.... This is not meant to be in all inclusive list EKG interpreted by me (3pts min.). @ -none X-rays interpreted by me (1pt min.). @ -X-ray of the left hip reveals a linear lucency within the intertrochanteric region of the left proximal femur concerning for acute nondisplaced fracture CT interpreted by me (1pt min.). @ -CT of the left hip completed with a comminuted left intertrochanteric femur fracture U/S interpreted by me (1pt. min.). @ -None done What testing was considered but not performed or refused? (CT, X-rays, U/S, labs)? Why? @ -None What meds were considered but not given or refused? Why? @ -None Did you discuss the management of the patient with other professionals (professionals i.e. , PA, HIGHWAY ENGINEERING TECHNICIAN, lab, RT, psych nurse, social work manager, transmission operator, teacher, licensed loan officer assistant, skilled nursing case manager)? Give summary @ -Spoke with on-call nurse petitioner with [facility] who is excepted admission of the patient with internal medicine on consult. Was smoking cessation discussed for >3mins.? @ -No Was critical care preformed (if so, how long)? @ -No Were there social determinants of health that impacted care today? How? (Homelessness, low income, unemployed, alcoholism, drug addiction, transportat ion, low edu. Level, literacy, decrease access to med. care, fdc, rehab)? @ -No Was there de-escalation of care discussed even if they declined (Discuss DNR or withdrawal of care, Hospice)? DNR status @ -No What co-morbidities impacted this encounter? (DM, HTN, Smoking, COPD, CAD, Cancer, CVA, ARF, Chemo, Hep., AIDS, mental health diagnosis, sleep apnea, morbid obesity)? @ -None Was patient admitted / discharged? Hospital course, mention meds given and route, prescriptions, significant lab abnormalities, going to OR and other pertinent info. @ -69-year-old male presents emergency department via EMS for complaint of left hip pain. Patient has pain in left hip developed patient is unable to complete full range of motion due to pain of the left hip. He is provided with dose of pain medication. X-ray reveals a linear lucency within the intertrochanteric region concerning for acute fracture of the recommend CT imaging for further evaluation. CT is ordered concerning for intertrochanteric femur fracture. Patient will be manage orthopedics with general medicine on consult and continue pain management. Case discussed with Dr. Hanson Undiagnosed new problem with uncertain prognosis? @ -No Drug Therapy requiring intensive monitoring for toxicity (Heparin, Nitro, Insulin, Cardizem)? @ -No Were any procedures done? @ -No Diagnosis/symptom? @ -Intertrochanteric femur fracture Acute, or Chronic, or Acute on Chronic? @ -Acute Uncomplicated (without systemic symptoms) or Complicated (systemic symptoms)? @ -Complicated Side effects of treatment? @ -No Exacerbation, Progression, or Severe Exacerbation? @ -No Poses a threat to life or bodily function? How? (Chest pain, [place], [place], pneumonia, PE, COPD, DKA, ARF, appy, cholecystitis, CVA, Diverticulitis, Homicidal, Suicidal, threat to staff... and all critical care pts) @ -No Disposition Clinical Impression: Intertrochanteric fracture Disposition: ADMITTED IP TO THIS HOSP Condition: Stable Referrals: Dayton Neff MD [Primary Care Provider] - 1-2 days Decision to Admit Reason: Admit from EC Decision Date: 04/18/24 Decision Time: 16:13
[2024-04-18] MEDS: HYDROmorphone 1 MG/ML 1 ML SYRINGE IM STA (13:50)
--- NOTE | 2024-04-18 14:56 | XR ---
EXAMINATION TYPE: XR pelvis AP view, XR femur LT DATE OF EXAM: 04/18/2024 2:44 PM INDICATION: Patient age:Male; 69 years old; Reason for study: PAIN AFTER FALL; PHH. pain COMPARISON: CT abdomen and pelvis 05/30/2020 TECHNIQUE: The pelvis was examined in a single projection. The left femur was examined in frontal and lateral projections. FINDINGS: No acute fracture of the pelvic bones. There is linear lucency in the intratrochanteric reg ion of the left proximal femur. No dislocation of the hips. Osteoarthritic changes of both hips with medial joint space narrowing and acetabular sclerosis with marginal osteophytosis. No soft tissue swe lling. Degenerative changes of the visualized lumbar spine. Left-sided pelvic phlebolith. Abdominal w all hernia mesh clips identified. IMPRESSION: 1. Linear lucency within the intratrochanteric region of the left proximal femur concerning for acut e nondisplaced fracture. Recommend further evaluation with CT. 2. Moderate osteoarthritic changes of both hips. [facility], , 04/18/2024 2:54 PM
--- NOTE | 2024-04-18 15:55 | CT ---
EXAMINATION TYPE: CT hip LT wo con DATE OF EXAM: 04/18/2024 3:44 PM COMPARISON: . Extremity radiograph same day. CLINICAL INDICATION: Male, 69 years old with history of fall, pain, xr concern for fx; PHH, Fall. Lef t hip pain. Concern for FX. TECHNIQUE: Axial images were obtained of the CT hip LT wo con, Additional coronal and sagittal reform atted images and soft tissue and bone window were obtained for review. 3-D reconstruction was created on a separate workstation. Contrast used: mL of , (None if empty) Oral contrast used: (None if empty) CT DLP: 444 mGycm, Automated exposure control for dose reduction was used. FINDINGS: Comminuted fractures of the left hip through the proximal femur intertrochanteric region. T he bony pelvis is intact. The right femur appears intact. Mild degeneration changes of the hips with denser type acetabulum bilaterally. Visualized portions of the pelvis grossly unremarkable. Bilateral fat-containing inguinal hernias. The prostate gland is enlarged projected to 5.3 cm in transverse di mension. IMPRESSION: 1. Comminuted left intertrochanteric femur fracture. The pelvis appears intact. 2. Mild degeneration changes of the hips with pincer-type acetabulum. 3. Prostatomegaly correlate serum PSA. [facility], , 04/18/2024 3:53 PM
[2024-04-18] MEDS ORDERED: HYDROcodone/APAP 5-325MG 1 EACH TAB PO PRN (16:13)
[2024-04-18] MEDS ORDERED: NALOXONE 0.4 MG/ML 1 ML VIAL IV PRN (16:13)
[2024-04-18] MEDS ORDERED: ACETAMINOPHEN TAB 325 MG TAB PO PRN (16:13)
[2024-04-18 16:58] LABS: Basophils % (A) 0 %; Eosinophils # (A) 0.2 k/uL (0-0.7); Eosinophils % (A) 1 %; HCT 53.3 % (39.0-53.0); HGB 17.9 gm/dL (13.0-17.5); Lymphocytes # (A) 0.8 k/uL (1.0-4.8); Lymphocytes % (A) 5 %; MCH 33.5 pg (25.0-35.0); MCHC 33.5 g/dL (31.0-37.0); MCV 100.2 fL (80.0-100.0); Mean Platelet Volume 7.6; Monocytes # (A) 0.7 k/uL (0-1.0); Monocytes % (A) 4 %; Neutrophils # (A) 14.3 k/uL (1.3-7.7); Neutrophils % (A) 89 %; Platelet Count 262 k/uL (150-450); RBC 5.33 m/uL (4.30-5.90); RDW 12.2 % (11.5-15.5)
[2024-04-18 17:09] LABS: ALT 24 U/L (4-49); African American GFR (CKD) 71 (>60 ml/min/1.73 sqM); Albumin 4.2 g/dL (3.5-5.0); Anion Gap 9 mmol/L; Blood Urea Nitrogen 17 mg/dL (9-20); Calcium 9.4 mg/dL (8.4-10.2); Carbon Dioxide 24 mmol/L (22-30); Chloride 103 mmol/L (98-107); Glucose 108 mg/dL (74-99); Non-African American GFR(CKD) 62 (>60 ml/min/1.73 sqM); Sodium 136 mmol/L (137-145); Total Bilirubin 1.2 mg/dL (0.2-1.3); Total Protein 7.1 g/dL (6.3-8.2)
[2024-04-18 17:14] LABS: AST 33 U/L (17-59); Alkaline Phosphatase 89 U/L (38-126); Potassium 5.1 mmol/L (3.5-5.1)
--- NOTE | 2024-04-18 17:39 | XR ---
EXAMINATION TYPE: XR chest 1V DATE OF EXAM: 04/18/2024 5:24 PM COMPARISON: 03/17/2018 CLINICAL INDICATION: Male, 69 years old with history of surgical clearance, TECHNIQUE: XR chest 1V view(s) obtained. FINDINGS: The heart size is mildly prominent. The pulmonary vasculature is normal. There is silhouetting the left heart border. There is increased lung markings in the medial left lowe r lung field extending towards the diaphragm. IMPRESSION: 1. Mild cardiomegaly. 2. There may be a right middle lobe infiltrate. Clinical correlation recommended. [facility], , 04/18/2024 5:37 PM
[2024-04-18] MEDS: HYDROmorphone 0.5 MG/0.5 ML SYRINGE IVP PRN (18:04)
[2024-04-18] MEDS ORDERED: ALBUTEROL HFA INHALER INHALATION PRN (18:43)
[2024-04-18] MEDS: IPRATROPIUM-ALBUTEROL 3 ML NEB INHALATION SCH (20:34)
[2024-04-18] MEDS: lisinopriL 10 MG TAB PO SCH (21:05)
[2024-04-18] MEDS: ATORVASTATIN 40 MG TAB PO SCH (21:05)
[2024-04-18] MEDS: TAMSULOSIN 0.4 MG CAP.ER.24H PO SCH (21:05)
--- NOTE | 2024-04-18 23:52 | HP ---
HISTORY AND PHYSICAL CHIEF COMPLAINT: Fall with pain in the left hip. HISTORY OF PRESENT ILLNESS: This is the first known admission to this hospital for this 69-year-old white male. He has electric wheelchair and was trying to navigate around town with slippery and snow covered conditions. He got stuck on the windrow and tried to free himself up as well as his chair and he fell on his left hip. He has had no history of syncope, chest pain, etc., and found to have a fracture of the left hip in the emergency room. REVIEW OF SYSTEMS: He denies any headaches, neurologic problems, difficulty with vision or hearing, chest pain, etc. He does have advanced COPD and still smokes. He has sleep apnea and uses a BiPAP at night. He has not had any current chest pain or palpitations, but he does have a history of coronary artery disease, having had at least 1 stent placed sometime in the past. He is not currently having any symptoms of orthopnea, PND, etc. He has had no abdominal pain, nausea, vomiting, hematemesis, melena, hematochezia, stool incontinence, renal failure, dysuria, hematuria, frequency, urgency, nocturia, or incontinence. He does have a history of chronic kidney disease. He has been diagnosed with type 2 diabetes, but does not take anything for it. Past medical history, family history, personal and social histories reveal that he has hyperlipidemia. He does continue to smoke. He also has some difficulty with GERD, vitamin D deficiency, hypertension. MEDICATIONS: 1. Atorvastatin 40 mg once a day. 2. Lisinopril 10 mg once a day. 3. Tamsulosin 0.4 mg once a day. 4. Trelegy 1 puff once a day. 5. Ventolin HFA p.r.n. 6. Aspirin 325 once a day. 7. He does use a CPAP or BiPAP at night. He does not use oxygen. He does have Pulmicort inhaler. SOCIAL HISTORY: He does continue to smoke. PHYSICAL EXAMINATION: VITAL SIGNS: Normal. HEAD, EARS, EYES, NOSE, MOUTH AND THROAT: Normal. Face was flushed. NECK: Neck veins are not distended. CHEST: Demonstrated decreased breath sounds with scattered rales throughout. CARDIAC: Sounded like sinus rhythm with no murmurs or extra sounds. ABDOMEN: Soft, nontender without any visceromegaly or masses. EXTREMITIES: Reveal external rotation of the left leg and hip. NEUROLOGICAL: He is intact. ASSESSMENT: He is admitted to the hospital with diagnoses of, 1. Fracture of the left hip. 2. Chronic obstructive pulmonary disease. 3. Nicotine abuse. 4. History of coronary artery disease. 5. Sleep apnea. 6. History of hypertension. 7. Hyperlipidemia. PLAN: 1. Bedrest. 2. IV fluids. 3. Analgesics. 4. Orthopedic evaluation. 5. Consult with Pulmonology and Cardiology before surgery. 6. He is cleared for surgery if and when he is cleared by Pulmonology and Cardiology. MMODL / IJN: [id number] /
[2024-04-19] MEDS: SYMBICORT 160-4.5 MCG INHALER INHALATION SCH (09:37)
--- NOTE | 2024-04-19 10:24 | P.CNOR ---
History of Present Illness - [facility] Consult date: 04/19/24 Consult reason: fracture (Left hip) History of present illness: This is a 69-year-old male who presented to the emergency department via EMS on 04/18/2024 after falling and injuring his left hip. He states that he was holding onto the back of his wheelchair outside and lost his balance. He had immediate pain in the left hip upon falling. He was brought to the emergency department. On exam and x-ray he was found to have an intertrochanteric fracture of the left hip. We are consulted for orthopedic evaluation. He is admitted to our service for further evaluation and surgical intervention. The patient has past medical history of COPD, cardiac disease and history of smoking. Past Medical History Past Medical History: Coronary Artery Disease (CAD), Hypertension, Myocardial Infarction ([place]) Additional Past Medical History / Comment(s): kidney stones Last Myocardial Infarction Date:: 2008 History of Any Multi-Drug Resistant Organisms: None Reported Past Surgical History: Back Surgery, Orthopedic Surgery Past Anesthesia/Blood Transfusion Reactions: No Reported Reaction Past Psychological History: Depression Smoking Status: Current every day smoker Past Alcohol Use History: None Reported Past Drug Use History: Marijuana Medications and Allergies Home Medications Medication Instructions Recorded Confirmed Type lisinopriL [Zestril] 10 mg PO HS@199903/13/18 04/18/24 History Albuterol Inhaler [Ventolin Hfa 2 puff INHALATION RT-QID PRN 05/25/20 04/18/24 History Inhaler] Aspirin EC [Ecotrin Low Dose] 81 mg PO HS@199905/25/20 04/18/24 History Atorvastatin Calcium [Lipitor] 40 mg PO HS@199905/25/20 04/18/24 History Ergocalciferol [Vitamin D2 (1250 1,250 mcg PO Q30D 04/18/24 04/18/24 History Mcg = 30943 Iu)] Fluticasone/Umeclidin/Vilanter 1 puff INHALATION RT-DAILY 04/18/24 04/18/24 History [Trelegy Ellipta 100-62.5-25] Tamsulosin [Flomax] 0.4 mg PO HS@199904/18/24 04/18/24 History Allergies Allergy/AdvReac Type Severity Reaction Status Date / Time No Known Allergies Allergy Verified 04/18/24 16:44 Physical Examination This is a pleasant 69-year-old male in no acute distress. He is alert and oriented x 3. He is currently on O2 4 L per nasal cannula. Exam of the head neck revealed no obvious deformity. He has fairly good cervical spine motion without difficulty or pain. He is nontender with palpation about cervical spine or paraspinal musculature. Exam of the upper extremities is unremarkable. He is able to move both upper extremities without difficulty or pain. No areas of swelling or deformity. Exam of the lower extremities reveals that the left hip is resting in external rotation and flexion. There is shortening noted to the left leg. He has full foot and ankle motion without difficulty or pain. Pedal pulses are +1/4 bilaterally. Capillary refills less than 3 seconds. Neurovascular status to the lower extremities is intact. Results X-rays and CT scan of the pelvis and left hip reveal a minimally displaced intertrochanteric fracture of the left hip with slight comminution. No other bony abnormalities noted. - Labs Labs: Abnormal Lab Results - Last 24 Hours (Table) 04/18/24 04/18/24 Range/Units 16:33 16:33 WBC 16.0 H (3.8-10.6) k/uL Hgb 17.9 H (13.0-17.5) gm/dL Hct 53.3 H (39.0-53.0) % MCV 100.2 H (80.0-100.0) fL Neutrophils # 14.3 H (1.3-7.7) k/uL Lymphocytes # 0.8 L (1.0-4.8) k/uL Sodium 136 L (137-145) mmol/L Glucose 108 H (74-99) mg/dL H & H 04/18/24 Range/Units 16:33 Hgb 17.9 H (13.0-17.5) gm/dL Hct 53.3 H (39.0-53.0) % Result Diagrams: 04/18/24 16:33 04/18/24 16:33 Assessment and Plan (1) COPD (chronic obstructive pulmonary disease) Current Visit: Yes Status: Acute Code(s): J44.9 - CHRONIC OBSTRUCTIVE PULMONARY DISEASE, UNSPECIFIED SNOMED Code(s): 23603400 (2) Intertrochanteric fracture Current Visit: Yes Status: Acute Priority: High Code(s): S72.143A - DISPLACED INTERTROCHANTERIC FRACTURE OF UNSP FEMUR, INIT SNOMED Code(s): 839552328 (3) Smoker Current Visit: No Status: Acute Code(s): F17.200 - NICOTINE DEPENDENCE, UNSPECIFIED, UNCOMPLICATED SNOMED Code(s): 43184608 Plan: The clinical and x-ray findings are discussed with the patient. We are planning closed reduction with insertion of intertrochanteric nail of the left hip. We are awaiting clearance by cardiology and pulmonology. He is tentatively boarded for surgery for 04/20/2024. The surgery was discussed in detail including the possible risks and outcomes. It is likely he will require inpatient rehab postoperatively. Patient independently evaluated by myself today. No overall changes in his exam today other than his pain being better controlled with medication regimen. Given his baseline cardiac and pulmonary history he is pending further evaluation by the cardiology and pulmonology teams prior to surgery. As of now he has not had these evaluations completed, discussed that should further testing be necessary from their standpoint this will likely delay surgery beyond today. Discussed with the patient that the timing is unclear at this time until these evaluations can be completed. At this time patient would prefer we reschedule the surgery tomorrow to avoid prolonged NPO time in the setting of unclear operative timing and allow for additional time for him to speak with family prior to his procedure. Will plan for OR tomorrow pending further workup and evaluation by the cardiology and pulmonology teams. We will be in contact with their respective teams in order to assess the planned workup needed to further determine a better operative timeline. Continue NWB to the LLE multimodal pain regimen NPO midnight tonight in preparation for planned OR tomorrow Appreciate input from all medical services with perioperative medial managment
[2024-04-19] MEDS: NICOTINE 14MG/24HR PATCH TRANSDERM SCH (10:28)
--- NOTE | 2024-04-19 10:45 | P.HPOR ---
History of Present Illness H&P Date: 04/18/24 Chief Complaint: left hip pain Patient presents to the ED today after a fall from standing onto his left hip while attempting to free his power chair from the snow. he had immediate pain and inability to bear weight. Pain is worse with attempted motion or direct contact to the hip. he denies any numbness or tingling to the left leg, he denies any further areas of pain other than the left hip. Patient has a history of cardiac disease in the form of CAD with a reported NM however he denies any history of stents or open heart procedures. Patient reports baseline lung disease likely related to COPD but he does not recall the exact diagnosis, he is not currently on any blood thinning medications. Patient is a current every day smoker and states he has been smoking since he was 9 years old. Patient is a baseline power chair ambulator, he lives in a one bedroom apartment and is able to ambulate in his home however he requires his chair for any significant distances. Assistive devices: power chair Patient lives at home alone Review of Systems Constitutional: Denies chills, Denies fever Cardiovascular: Denies chest pain, Denies palpitations, Denies syncope Respiratory: Reports cough, Reports sleep apnea, Reports wheezing, Denies pain on inspiration Musculoskeletal: Reports as per HPI Musculoskeletal: left: hip pain Neurological: Denies numbness, Denies tingling Past Medical History Past Medical History: Coronary Artery Disease (CAD), Hypertension, Myocardial Infarction (NM) Additional Past Medical History / Comment(s): kidney stones Last Myocardial Infarction Date:: 2008 History of Any Multi-Drug Resistant Organisms: None Reported Past Surgical History: Back Surgery, Orthopedic Surgery Past Anesthesia/Blood Transfusion Reactions: No Reported Reaction Past Psychological History: Depression Smoking Status: Current every day smoker Past Alcohol Use History: None Reported Past Drug Use History: Marijuana Medications and Allergies Home Medications Medication Instructions Recorded Confirmed Type lisinopriL [Zestril] 10 mg PO HS@199903/13/18 04/18/24 History Albuterol Inhaler [Ventolin Hfa 2 puff INHALATION RT-QID PRN 05/25/20 04/18/24 History Inhaler] Aspirin EC [Ecotrin Low Dose] 81 mg PO HS@199905/25/20 04/18/24 History Atorvastatin Calcium [Lipitor] 40 mg PO HS@199905/25/20 04/18/24 History Ergocalciferol [Vitamin D2 (1250 1,250 mcg PO Q30D 04/18/24 04/18/24 History Mcg = 61187 Iu)] Fluticasone/Umeclidin/Vilanter 1 puff INHALATION RT-DAILY 04/18/24 04/18/24 History [Trelegy Ellipta 100-62.5-25] Tamsulosin [Flomax] 0.4 mg PO HS@199904/18/24 04/18/24 History Allergies Allergy/AdvReac Type Severity Reaction Status Date / Time No Known Allergies Allergy Verified 04/18/24 16:44 Physical Examination General: Patient is alert and oriented, he is in considerable pain on exam related to the left hip HEENT: patient has no visible trauma to the head, patient has intact extraocular motion of the eyes, pupils are reactive to light CV: patient has normal rate and intact distal pulses Pulm: patient has normal respiratory rate, in no current respiratory distress Abdomen: patients abdomen is non tender Left hip exam skin is intact limb is shortened and externally rotated TTP globally around the hip ROM and strength testing of the hip and knee deferred due to known fracture stability exam of the hip and knee deferred due to known fracture sensation to light touch intact throughout the left leg and foot patient able to actively plantar and dorsiflex the ankle and flex and extend the digits of the foot patient has palpable DP pulse and brisk capillary refill to the left foot less than 3 seconds Tertiary exam shows no further areas of bony tenderness or instability to the bilateral upper extremities, right lower extremity. Results - Labs Labs: Abnormal Lab Results - Last 24 Hours (Table) 04/18/24 04/18/24 Range/Units 16:33 16:33 WBC 16.0 H (3.8-10.6) k/uL Hgb 17.9 H (13.0-17.5) gm/dL Hct 53.3 H (39.0-53.0) % MCV 100.2 H (80.0-100.0) fL Neutrophils # 14.3 H (1.3-7.7) k/uL Lymphocytes # 0.8 L (1.0-4.8) k/uL Sodium 136 L (137-145) mmol/L Glucose 108 H (74-99) mg/dL H & H 04/18/24 Range/Units 16:33 Hgb 17.9 H (13.0-17.5) gm/dL Hct 53.3 H (39.0-53.0) % Result Diagrams: 04/18/24 16:33 04/18/24 16:33 - Diagnostic results Hip x-ray: image reviewed (imaging shows a comminuted intertrochanteric left femur fracture as well as moderate degenerative changes to the left hip, full length femur films confirm this as well, no evidence of distal injury at the level of the knee. ) Hip CT: image reviewed (CT confirms comminuted displaced intertrochanteric fracture of the left hip ) Assessment and Plan Assessment: Left comminuted intertrochanteric femur fracture (1) Intertrochanteric fracture Current Visit: Yes Status: Acute Priority: High Code(s): S72.143A - DISPLACED INTERTROCHANTERIC FRACTURE OF UNSP FEMUR, INIT SNOMED Code(s): 074277728 Plan: NWB to Left leg will plan for OR tomorrow for intramedullary fixation of the left hip pending medical evaluation NPO at midnight in preparation for OR Multimodal pain regimen for pain control PT/OT evaluation post op Appreciated medicine evaluation for preoperative assessment Detailed discussion was had with the patient and family regarding the nature of the injury. With a fracture as a result of minor trauma this is an indication of poor bone quality and they are encouraged to discuss further metabolic testing and workup with their primary care physician in coordination with our team and possibly even an band booker. They sustained an unstable hip fracture. Based on their baseline ambulatory status even though limited this is an injury that would greatly benefit from surgical intervention in order to provide patient with the best chance of regaining mobility after this injury. Even considering his baseline ambulatory status from a pain managment standpoint alone stabilization of his fracture would greatly improve his pain level and allow much more comfort even with upcoming care needs and transfers to his power chair. We discussed non operative treatment is theoretically possible but would require prolonged non weight bearing to the affected leg which would ultimately result in prolonged immobilization and is associated with significantly increased mortality rates. Arthroplasty although a theoretical option would not be the most appropriate fixation option given the location of the fracture and lack of previous hip pain We discussed that the most appropriate surgical option for this injury would be intramedullary nail fixation. The risks of surgery include risks of anesthesia which will be discussed in greater detail with your anesthesia team at the time of surgery, scarring, risk of swelling and possible permanent swelling of the affected extremity, superficial vs deep infections, damage to surrounding structures including muscles, nerve, tendons, blood vessels, hardware failure, fracture mal or non union, need for additional future surgery, blood clots, stroke, even are possible with surgery were discussed with the patient and he wishes to proceed when medically optimized. Benefits include stabilizing the fracture and helping with baseline pain, providing the patient with the opportunity to weight bear on the extremity after surgery. We also discussed the likely post operative course after surgery including beginning weight bearing to the left leg after surgery, on average several days in the hospital after surgery for initial recovery and evaluation by the PT and OT staff to aid in determining the proper destination after their hospitalization, likely this will require a period of time at a rehab or nursing facility. We also discussed realistic expectations regarding function after this injury, the best case scenario is she returns to her baseline functional level but many times patients become more depending on support aids such as walkers/canes/or wheelchairs based on their previous level of function and it is not uncommon for patients to require additional support for ambulation after such an injury above what was required in their pre-injury state.
[2024-04-19 12:33] LABS: Appearance,Urine Cloudy (Clear); Bilirubin,Urine Negative (Negative); Blood,Urine Small (Negative); Calcium Oxalate Crystals,Urine Rare /hpf; Color,Urine Yellow; Glucose,Urine (UA) Negative (Negative); Ketones,Urine Negative (Negative); Leukocyte Esterase,Urine Trace (Negative); Mucus,Urine Few /hpf; Nitrite,Urine Negative (Negative); PH, Urine 5.5 (5.0-8.0); Protein,Urine 1+ (Negative); RBC,Urine 32 /hpf (0-5); Specific Gravity,Urine 1.023 (1.001-1.035); Squamous Epithelial Cell,Urine <1 /hpf (0-4); WBC,Urine 13 /hpf (0-5)
--- NOTE | 2024-04-19 13:59 | P.CRDCN ---
History of Present Illness Consult date: 04/19/24 Requesting physician: Dayton Neff Reason for Consult (text): CAD, COPD, frx. hip Chief complaint: hip fracture History of present illness: This is a 69-year-old male patient who does not follow with cardiology with past medical history of hypertension, hyperlipidemia, possible diabetes, possible history of AZ but patient does not recall ever having cardiac catheterization and is unaware of any CAD, severe COPD, obstructive sleep apnea, nicotine dependence smokes 1-1 and half packs per day for 60 years and has no desire to quit. Prior alcohol and drug abuse, quit 25 years ago. Patient is very limited in his physical activity, uses a motorized wheelchair for which she is used for at least 25 years for unclear reasons. He is very short of breath with activity and attributes this to his COPD. Presented to the hospital after falling and sustaining a hip fracture. He got his motorized wheelchair stuck in an ice and he was trying to move it when he slipped on ice and fell onto his left hip. We were asked see the patient in consultation for preoperative clearance. Diagnostics -EKG: Sinus rhythm evidence of possible prior AZ, nonspecific ST-T wave abnormalities with poor baseline -Chest x-ray: Mild cardiomegaly, may be a right middle lobe infiltrate, clinical correlation recommended -Laboratory studies: White blood cell count 16,000, hemoglobin 17.9, sodium 136, potassium 5.1, BUN 17, creatinine 1.21 -Home cardiac medications: Aspirin 81 mg daily, atorvastatin 40 mg p.o. nightly, lisinopril 10 mg p.o. daily -Prior stress test: None -Echocardiogram: None -Cardiac catheterization: None Review Of Systems: At the time of my exam: CONSTITUTIONAL: Denies fever or chills. HEENT: Denies blurred vision, vision changes. CARDIOVASCULAR: Denies chest pain. Denies orthopnea. Denies PND. Denies palpitations, dizziness, or syncope. RESPIRATORY: Positive for shortness of breath, wheezing, and cough. Denies hemoptysis. GASTROINTESTINAL: Denies abdominal pain. Denies nausea or vomiting. Denies bleeding. HEMATOLOGIC: Denies bleeding disorders. GENITOURINARY: Denies hematuria. SKIN: Denies puritis. Denies rash. PHYSICAL EXAMINATION: This is a 69-year-old gentleman in no apparent distress at the time of my examination. VITAL SIGNS: Reviewed. HEENT: Head is atraumatic, normocephalic. Pupils are equal, round. Sclerae anicteric. Conjunctivae are clear. Mucous membranes of the mouth are moist. Neck is supple. There is no elevated jugular venous pressure. No carotid bruit is heard. CHEST EXAMINATION: Diminished air entry bilaterally with expiratory wheezing t hroughout. Respirations even and nonlabored. HEART EXAMINATION: Heart regular, positive S1 and S2. No S3. No S4. Systolic murmur. ABDOMEN: Soft, nontender. Bowel sounds are heard. No organomegaly noted. EXTREMITIES: 1+ peripheral pulses with no evidence of peripheral edema and no calf tenderness noted. Muscle atrophy noted NEUROLOGIC EXAMINATION: Patient is awake, alert and oriented x3. Assessment: 1. Intertrochanteric fracture 2. Severe COPD, pulmonary consulted 3. Nicotine dependence 4. Physical debility 5. Hypertension 6. Hyperlipidemia 7. Questionable history of [place] 8. Questionable history of diabetes 9. Obstructive sleep apnea Plan: From cardiology's perspective patient is high risk to undergo surgery. We will obtain a 2D echo with Doppler study to assess cardiac structure and function. Further recommendations to follow. Thank you kindly for this consultation. Nurse practitioner note has been reviewed, I agree with documented findings and plan of care. Patient was seen and examined. Past Medical History Past Medical History: Coronary Artery Disease (CAD), Hypertension, Myocardial Infarction (AZ) Additional Past Medical History / Comment(s): kidney stones Last Myocardial Infarction Date:: 2008 History of Any Multi-Drug Resistant Organisms: None Reported Past Surgical History: Back Surgery, Orthopedic Surgery Past Anesthesia/Blood Transfusion Reactions: No Reported Reaction Past Psychological History: Depression Smoking Status: Current every day smoker Past Alcohol Use History: None Reported Past Drug Use History: Marijuana Medications and Allergies Home Medications Medication Instructions Recorded Confirmed Type lisinopriL [Zestril] 10 mg PO HS@199903/13/18 04/18/24 History Albuterol Inhaler [Ventolin Hfa 2 puff INHALATION RT-QID PRN 05/25/20 04/18/24 History Inhaler] Aspirin EC [Ecotrin Low Dose] 81 mg PO HS@199905/25/20 04/18/24 History Atorvastatin Calcium [Lipitor] 40 mg PO HS@199905/25/20 04/18/24 History Ergocalciferol [Vitamin D2 (1250 1,250 mcg PO Q30D 04/18/24 04/18/24 History Mcg = 19843 Iu)] Fluticasone/Umeclidin/Vilanter 1 puff INHALATION RT-DAILY 04/18/24 04/18/24 History [Trelegy Ellipta 100-62.5-25] Tamsulosin [Flomax] 0.4 mg PO HS@199904/18/24 04/18/24 History Allergies Allergy/AdvReac Type Severity Reaction Status Date / Time No Known Allergies Allergy Verified 04/18/24 16:44 Physical Exam Vitals: Vital Signs Temp Pulse Pulse Resp BP BP Pulse Ox 04/19/24 12:38 70 04/19/24 12:30 68 04/19/24 09:57 70 04/19/24 09:43 96 04/19/24 09:38 72 04/19/24 07:48 75 18 115/78 94 L 04/19/24 07:40 75 04/19/24 01:35 98.2 F 91 18 124/85 96 04/19/24 01:12 04/18/24 20:34 74 04/18/24 19:23 98.1 F 100 18 143/80 94 L FiO2 04/19/24 12:38 04/19/24 12:30 04/19/24 09:57 04/19/24 09:43 04/19/24 09:38 04/19/24 07:48 04/19/24 07:40 04/19/24 01:35 04/19/24 01:12 21 04/18/24 20:34 04/18/24 19:23 Intake and Output 04/18/24 04/19/24 04/19/24 22:59 06:59 14:59 Intake Total 540 Balance 540 Intake: Oral 540 Other: Voiding Method Urinal Urinal Diaper Diaper Weight 104.326 kg Results 04/18/24 16:33 04/18/24 16:33 Cardiac Enzymes 04/18/24 Range/Units 16:33 AST 33 (17-59) U/L CBC 04/18/24 Range/Units 16:33 WBC 16.0 H (3.8-10.6) k/uL RBC 5.33 (4.30-5.90) m/uL Hgb 17.9 H (13.0-17.5) gm/dL Hct 53.3 H (39.0-53.0) % Plt Count 262 (150-450) k/uL Comprehensive Metabolic Panel 04/18/24 Range/Units 16:33 Sodium 136 L (137-145) mmol/L Potassium 5.1 (3.5-5.1) mmol/L Chloride 103 (98-107) mmol/L Carbon Dioxide 24 (22-30) mmol/L BUN 17 (9-20) mg/dL Creatinine 1.21 (0.66-1.25) mg/dL Glucose 108 H (74-99) mg/dL Calcium 9.4 (8.4-10.2) mg/dL AST 33 (17-59) U/L ALT 24 (4-49) U/L Alkaline Phosphatase 89 (38-126) U/L Total Protein 7.1 (6.3-8.2) g/dL Albumin 4.2 (3.5-5.0) g/dL Current Medications Generic Name Dose Route Start Last Admin Trade Name Freq PRN Reason Stop Dose Admin Acetaminophen 650 mg 04/18/24 16:13 Acetaminophen Tab 325 Mg Tab PO Q6HR PRN Mild Pain or Fever > 100.5 Hydrocodone Bitart/Acetaminophen 1 each 04/18/24 16:13 Hydrocodone/Apap 5-325mg 1 Each Tab PO Q4HR PRN Moderate Pain (Scale 4 to 6) Albuterol Sulfate 2 puff 04/18/24 18:43 Albuterol Hfa Inhaler INHALATION RT-QID PRN Shortness Of Breath Albuterol/Ipratropium 3 ml 04/18/24 20:00 04/19/24 12:30 Ipratropium-Albuterol 3 Ml Neb INHALATION 3 ml RT-QID DIANA Administration Atorvastatin Calcium 40 mg 04/18/24 20:00 04/18/24 21:05 Atorvastatin 40 Mg Tab PO 40 mg HS@2000 DIANA Administration Budesonide/Formoterol Fumarate 2 puff 04/19/24 08:00 04/19/24 09:37 Symbicort 160-4.5 Mcg Inhaler INHALATION 2 puff RT-BID DIANA Administration Hydromorphone HCl 0.5 mg 04/18/24 16:13 04/19/24 09:10 Hydromorphone 0.5 Mg/0.5 Ml Syringe IVP 0.5 mg Q3HR PRN Administration Moderate Pain (Scale 4 to 6) Lisinopril 10 mg 04/18/24 20:00 04/18/24 21:05 Lisinopril 10 Mg Tab PO 10 mg HS@1999 DIANA Administration Naloxone HCl 0.2 mg 04/18/24 16:13 Naloxone 0.4 Mg/Ml 1 Ml Vial IV Q2M PRN Opioid Reversal Nicotine 1 patch 04/19/24 09:45 04/19/24 10:28 Nicotine 14mg/24hr Patch TRANSDERM 1 patch DAILY DIANA Administration Tamsulosin HCl 0.4 mg 04/18/24 20:00 04/18/24 21:05 Tamsulosin 0.4 Mg Cap.Er.24h PO 0.4 mg HS@1999 DIANA Administration Intake and Output 04/18/24 04/19/24 04/19/24 22:59 06:59 14:59 Intake Total 540 Balance 540 Intake: Oral 540 Other: Voiding Method Urinal Urinal Diaper Diaper Weight 104.326 kg 04/18/24 16:33 04/18/24 16:33
--- NOTE | 2024-04-19 15:01 | P.CNPUL ---
History of Present Illness Consult date: 04/19/24 Reason for consult: COPD History of present illness: I am seeing this patient for a preoperative pulmonary evaluation. The patient had a fall and sustained a left hip fracture. The patient is known to have advanced COPD. He is a chronic smoker. He is oxygen dependent and he continues to smoke 1 to 1-1/2 packs of cigarettes a day and he has [id number] smoking history. He used to drink alcohol in the past and currently is not drinking. He moves around with the help of a motorized wheelchair. He is extensively debilitated. He also has undergone previous back surgeries. He has hypertension hyperlipidemia, questionable history of coronary disease and previous NV although this is not clear. Unaware of any previous cardiac evaluat ions. Unaware of any previous pulmonary evaluation. Chest x-ray is consistent with COPD. He is typically on oxygen at 4 to 5 L and currently is on 3 L with a pulse ox of 96%. Chest x-ray is consistent with COPD. The white cell count is 16 with a heme of 17.9 and a platelet count of 262. BUN 17 with a creatinine 1.2. Sodium levels at 136. Free of any chest pain for now. Denies having any worsening shortness of breath and there is no signs of any acute COPD exacerbation. No recent PFTs or sedation. No recent pneumonias. No frequent hospitalization due to COPD related complications. Cardiac rhythm is sinus. He does have a low voltage. Echocardiogram is to be done. He does have a chronic cough. No significant sputum production. No hemoptysis. He is a poor historian. On a separate note, the patient states that he has obstructive sleep apnea. He has a device at home. Here in the hospital, he was offered a APAP machine pressures of 5/15 cm of water. Review of Systems Constitutional: Reports daytime sleepiness, Reports fatigue Eyes: denies as per HPI, denies blurred vision, denies bulging eye, denies dec reased vision, denies diplopia, denies discharge, denies dry eye, denies irritation, denies itching, denies pain, denies photophobia, denies loss of peripheral vision, denies loss of vision, denies tunnel vision/blind spots Ears: deny: decreased hearing, ear discharge, earache, tinnitus Ears, nose, mouth and throat: Reports as per HPI Breasts: absent: as per HPI, gynecomastia Cardiovascular: Reports decreased exercise tolerance, Reports dyspnea on exertion, Reports shortness of breath Respiratory: Reports cough, Reports dyspnea, Reports home oxygen, Reports sleep apnea, Reports snoring, Reports wheezing Gastrointestinal: Reports as per HPI Genitourinary: Reports as per HPI Musculoskeletal: Reports fractures, Reports frequent falls, Reports limitation of motion, Reports low back pain, Reports muscle weakness Musculoskeletal: absent: ankle pain, ankle stiffness, ankle swelling, as per HPI, elbow pain, elbow stiffness, elbow swelling, foot pain, foot stiffness, fo ot swelling, hand pain, hand stiffness, hand swelling, hip pain, hip stiffness, hip swelling, knee pain, knee stiffness, knee swelling, shoulder pain, shoulder stiffness, shoulder swelling, wrist pain, wrist stiffness, wrist swelling Integumentary: Reports as per HPI, Reports darkening of skin Neurological: Reports gait dysfunction Psychiatric: Reports as per HPI Endocrine: Reports fatigue Hematologic/Lymphatic: Reports as per HPI Allergic/Immunologic: Reports as per HPI Past Medical History Past Medical History: Coronary Artery Disease (CAD), COPD, Hypertension, Myocardial Infarction (NV), Sleep Apnea/CPAP/BIPAP Additional Past Medical History / Comment(s): kidney stones Last Myocardial Infarction Date:: 2008 History of Any Multi-Drug Resistant Organisms: None Reported Past Surgical History: Back Surgery, Orthopedic Surgery Past Anesthesia/Blood Transfusion Reactions: No Reported Reaction Past Psychological History: Depression Smoking Status: Current every day smoker Past Alcohol Use History: None Reported Past Drug Use History: Marijuana Medications and Allergies Home Medications Medication Instructions Recorded Confirmed Type lisinopriL [Zestril] 10 mg PO HS@199903/13/18 04/18/24 History Albuterol Inhaler [Ventolin Hfa 2 puff INHALATION RT-QID PRN 05/25/20 04/18/24 History Inhaler] Aspirin EC [Ecotrin Low Dose] 81 mg PO HS@199905/25/20 04/18/24 History Atorvastatin Calcium [Lipitor] 40 mg PO HS@199905/25/20 04/18/24 History Ergocalciferol [Vitamin D2 (1250 1,250 mcg PO Q30D 04/18/24 04/18/24 History Mcg = 18317 Iu)] Fluticasone/Umeclidin/Vilanter 1 puff INHALATION RT-DAILY 02/21/25 02/21/25 History [Trelegy Ellipta 100-62.5-25] Tamsulosin [Flomax] 0.4 mg PO HS@199904/18/24 04/18/24 History Allergies Allergy/AdvReac Type Severity Reaction Status Date / Time No Known Allergies Allergy Verified 04/18/24 16:44 Physical Exam Vitals: Vital Signs Temp Pulse Pulse Resp BP BP Pulse Ox 04/19/24 14:52 98 18 118/73 96 04/19/24 12:38 70 04/19/24 12:30 68 04/19/24 09:57 70 04/19/24 09:43 96 04/19/24 09:38 72 04/19/24 07:48 75 18 115/78 94 L 04/19/24 07:40 75 04/19/24 01:35 98.2 F 91 18 124/85 96 04/19/24 01:12 04/18/24 20:34 74 04/18/24 19:23 98.1 F 100 18 143/80 94 L FiO2 04/19/24 14:52 04/19/24 12:38 04/19/24 12:30 04/19/24 09:57 04/19/24 09:43 04/19/24 09:38 04/19/24 07:48 04/19/24 07:40 04/19/24 01:35 04/19/24 01:12 21 04/18/24 20:34 04/18/24 19:23 Intake and Output 04/18/24 04/19/24 04/19/24 22:59 06:59 14:59 Intake Total 540 Balance 540 Intake: Oral 540 Other: Voiding Method Urinal Urinal Diaper Diaper Weight 104.326 kg The patient appeared well nourished and normally developed. Vital signs as documented. Obese, comfortable currently on 3 L of oxygen by nasal cannula. Body mass index is 31.2 Head exam is unremarkable. No scleral icterus or corneal arcus noted. Neck is without jugular venous distension, thyromegaly, or carotid bruits. Carotid upstrokes are brisk bilaterally. Lungs show diminished breath sounds bilaterally, few scattered expiratory wheeze Cardiac exam reveals the PMI to be normally sized and situated. Rhythm is regular. First and second heart sounds normal. No murmurs, rubs or gallops. Abdominal exam reveals normal bowel sounds, no masses, no organomegaly and no aortic enlargement. Extremities are nonedematous and both femoral and pedal pulses are normal. Examination of the skin revealed no evidence of significant rashes, suspicious appearing nevi or other concerning lesions. Neurologically, the patient is awake and alert and the patient does not have any focal neurological deficit. Cranial nerves are essentially intact. Results - Laboratory Findings CBC and BMP: 04/18/24 16:33 04/18/24 16:33 Abnormal lab findings: Abnormal Labs 04/18/24 04/18/24 04/19/24 16:33 16:33 11:30 WBC 16.0 H Hgb 17.9 H Hct 53.3 H MCV 100.2 H Neutrophils # 14.3 H Lymphocytes # 0.8 L Sodium 136 L Glucose 108 H Urine Protein 1+ H Urine Blood Small H Ur Leukocyte Esterase Trace H Urine RBC 32 H Urine WBC 13 H Calcium Oxalate Crystal Rare H Urine Mucus Few H - Diagnostic Findings Chest x-ray: image reviewed Assessment and Plan Plan: Left intertrochanteric hip fracture, post fall, seeking a preoperative pulmonary clearance Advanced COPD, oxygen dependent, without any signs of exacerbation Chronic limitation-/capacity, multifactorial, partly related to his advanced COPD in addition to chronic musculoskeletal weakness and chronic back pain and previous spinal surgeries. Chronic smoker Obesity Obstructive sleep apnea, maintained on CPAP on outpatient basis Hypertension Hyperlipidemia Mild leukocytosis Plan Patient's COPD is severe and stable. Obviously, in the presence of advanced COPD, the patient carries a high operative risk for developing acute on top of chronic hypoxic and hypercapnic respiratory failure despite the fact that the surgery itself which is an orthopedic surgery is considered to be a lower risk surgery.. The patient was made aware of that. No absolute pulmonary contraindication for surgery and from the pulmonary standpoint, surgery can be done with the understanding that the patient needs to be monitored very closely postop and provided appropriate pulmonary support should there be any needs. Prefer to undergo surgery under spinal anesthesia, if unable to do so, the alternative would be general anesthesia. The patient should be able to continue Trelegy Ellipta from home. While in the hospital, he was switched to Symbicort and DuoNeb updrafts 4 times a day. No need for systemic steroids for now. Continue CPAP support with pressures of 5/15 cm of water/APAP mode. Obtain a cardiac clearance in addition. A baseline echocardiogram will be of value. Routine DVT prophylaxis postop per surgical recommendations. Will continue to follow. Will provide incentive spirometer.
--- NOTE | 2024-04-19 21:28 | PN ---
PROGRESS NOTE DATE OF SERVICE: 04/19/2024 CHIEF COMPLAINT: Fracture of the left hip. HISTORY OF PRESENT ILLNESS: This gentleman is being further evaluated by Pulmonology and Cardiology preoperatively. PHYSICAL EXAMINATION: CHEST: Breath sounds are fairly clear. CARDIAC: Sounds normal. ABDOMEN: Soft, nontender. IMPRESSION: 1. Fracture of the left hip. 2. Advanced chronic obstructive pulmonary disease. 3. History of coronary artery disease with stent. PLAN: Continue to prepare for his hip surgery. MMODL / IJN: [id number] /
[2024-04-20] MEDS: HYDROmorphone 1 MG/ML 1 ML SYRINGE IVP PRN (01:32)
[2024-04-20] MEDS: DEXTROSE 5%-0.45% NACL 1,000 ML IV SCH (01:33)
[2024-04-20] MEDS: ONDANSETRON 4 MG/2 ML VIAL IVP PRN (01:41)
--- NOTE | 2024-04-20 09:20 | CA ---
Transthoracic Echo Report Name: Wing Pacheco Age: 69 Gender: M : 1955 Exam Date: 04/19/2024 13:03 Exam Location: [facility] Ht (in): 72 Wt (lb): 230 Ordering Physician: Marla Valente Attending/Referring Phys: [id number], Ambrosio Statement Processor Henrietta Carlson, RDZAIN Procedure CPT: Indications: pre-op Cardiac Hx: Technical Quality: Very technically difficult study Contrast 1: Definity Total Dose (mL): 2 Contrast 2: Total Dose (mL): MEASUREMENTS (Male / Female) Normal Values 2D ECHO LV Diastolic Diameter PLAX 4.2 cm 4.2 - 5.9 / 3.9 - 5.3 cm LV Systolic Diameter PLAX 2.6 cm IVS Diastolic Thickness 1.5 cm 0.6 - 1.0 / 0.6 - 0.9 cm LVPW Diastolic Thickness 1.2 cm 0.6 - 1.0 / 0.6 - 0.9 cm LV Relative Wall Thickness 0.6 RV Internal Dim ED PLAX 2.3 cm LA Volume 51.6 cm??? 18 - 58 / 22 - 52 cm??? LA Volume Index 22.2 cm???/m??? 16 - 28 cm???/m??? DOPPLER AV Peak Velocity 162.6 cm/s AV Peak Gradient 10.6 mmHg AV Mean Velocity 119.6 cm/s AV Mean Gradient 6.2 mmHg AV Velocity Time Integral 25.9 cm MV Area PHT 2.3 cm??? Mitral E Point Velocity 60.6 cm/s Mitral A Point Velocity 91.8 cm/s Mitral E to A Ratio 0.7 MV Deceleration Time 327.8 ms TR Peak Velocity 145.6 cm/s TR Peak Gradient 8.5 mmHg FINDINGS Left Ventricle Left ventricular ejection fraction is estimated at 55-60 %. Normal left ventricular systolic function with no obvious regional wall motion abnormalities. Mildly increased left ventricular wall thickness. Left ventricular cavity size normal. Right Ventricle Right ventricle not well visualized. Right ventricular systolic pressure within normal limits. Right Atrium Normal right atrial size. Left Atrium Normal left atrial size. Mitral Valve Mitral valve not well visualized. Aortic Valve Aortic valve not well visualized. No aortic stenosis. Tricuspid Valve Tricuspid valve not well visualized. Pulmonic Valve Pulmonic valve not well visualized. Pericardium Echo free space anterior to the right ventricle likely represents a fat pad. Aorta Aortic root and proximal ascending aorta not well visualized. CONCLUSIONS Technically difficult study. Definity ECHO contrast used for improved visualization of the endocardial borders (inadequate visualization of two or more contiguous segments). Normal left ventricular size and systolic function Very limited Doppler study Previewed by: Dr. Javid Appiah MD (Electronically Signed) Final Date: 20 April 2024 09:19
--- NOTE | 2024-04-20 10:00 | P.PN ---
Progress Note - Text Progress Note Date: 04/20/24 Patient seen and examined this morning. Cardiology and Pulmonolgy evaluations have been completed and patient has been cleared from their standpoint to proceed with surgery. Patient is adamant about wanting to smoke as soon as possible. had a detailed discussion today about the negative effects of smoking on fracture healing and he should make all attempts to limit smoking while his fracture is healing at a minimum. Overall pain is better controlled with his pain regiment however will have significant discomfort with motion of the hip. Patient wishes to proceed with surgery today. On exam no acute changes to his LLE leg is shortened and externally rotated TTP globally around the hip motor function intact to the ankle and foot sensation intact throughout the leg and foot brisk capillary refill noted throughout the foot and toes Wll plan to proceed with IMN of the left hip this morning remain NPO until surgery PT/OT evaluations post op
[2024-04-20] MEDS ORDERED: MIDAZOLAM 2 MG/2 ML VIAL ONE (11:11)
[2024-04-20] MEDS ORDERED: TRANEXAMIC 1,000 MG/100ML-NACL PREMIX BAG ONE (11:11)
[2024-04-20] MEDS ORDERED: PROPOFOL 10 MG/ML 20 ML VIAL IV ONE (11:11)
[2024-04-20] MEDS ORDERED: PHENYLEPHRINE 10 MG/ML VIAL ONE (11:11)
[2024-04-20] MEDS ORDERED: KETAMINE HCL IN 0.9 % NACL 50 MG/5 ML SYRINGE ONE (11:11)
[2024-04-20] MEDS: LACTATED RINGERS 1,000 ML IV ONE ×2 (11:14→12:39)
--- NOTE | 2024-04-20 12:18 | P.PN ---
Subjective Progress Note Date: 04/20/24 This is a 69-year-old male patient who does not follow with cardiology with past medical history of hypertension, hyperlipidemia, possible diabetes, possible history of NC but patient does not recall ever having cardiac catheterization and is unaware of any CAD, severe COPD, obstructive sleep apnea, nicotine dependence smokes 1-1 and half packs per day for 60 years and has no desire to quit. Prior alcohol and drug abuse, quit 25 years ago. Patient is very limited in his physical activity, uses a motorized wheelchair for which she is used for at least 25 years for unclear reasons. He is very short of breath with activity and attributes this to his COPD. Presented to the hospital after falling and sustaining a hip fracture. He got his motorized wheelchair stuck in an ice and he was trying to move it when he slipped on ice and fell onto his left hip. We were asked see the patient in consultation for preoperative clearance. Diagnostics -EKG: Sinus rhythm evidence of possible prior NC, nonspecific ST-T wave abnormalities with poor baseline -Chest x-ray: Mild cardiomegaly, may be a right middle lobe infiltrate, clinical correlation recommended -Laboratory studies: White blood cell count 16,000, hemoglobin 17.9, sodium 136, potassium 5.1, BUN 17, creatinine 1.21 -Home cardiac medications: Aspirin 81 mg daily, atorvastatin 40 mg p.o. nightly, lisinopril 10 mg p.o. daily -Prior stress test: None -Echocardiogram: None -Cardiac catheterization: None 04/20/2024 Patient was seen and examined resting comfortably in bed. He denies any chest discomfort. Continues to have shortness of breath but at his baseline. Denies edema. Denies orthopnea or PND. Has had no palpitations, dizziness or lightheadedness. He is scheduled to undergo closed reduction and insertion IT nail left hip. Echocardiogram with Doppler study yesterday showed normal LV systolic function with an ejection fraction of 55 to 60%. PHYSICAL EXAMINATION: This is a 69-year-old gentleman in no apparent distress at the time of my examination. VITAL SIGNS: Reviewed. HEENT: Head is atraumatic, normocephalic. Pupils are equal, round. Sclerae anicteric. Conjunctivae are clear. Mucous membranes of the mouth are moist. Neck is supple. There is no elevated jugular venous pressure. No carotid bruit is heard. CHEST EXAMINATION: Diminished air entry bilaterally with expiratory wheezing throughout. Respirations even and nonlabored. HEART EXAMINATION: Heart regular, positive S1 and S2. No S3. No S4. Systolic murmur. ABDOMEN: Soft, nontender. Bowel sounds are heard. No organomegaly noted. EXTREMITIES: 1+ peripheral pulses with no evidence of peripheral edema and no calf tenderness noted. Muscle atrophy noted NEUROLOGIC EXAMINATION: Patient is awake, alert and oriented x3. Assessment: 1. Intertrochanteric fracture 2. Severe COPD, pulmonary consulted 3. Nicotine dependence 4. Physical debility 5. Hypertension 6. Hyperlipidemia 7. Questionable history of NC 8. Questionable history of diabetes 9. Obstructive sleep apnea Plan: From cardiology's perspective patient is high risk to undergo surgery but no absolute contraindication from cardiac standpoint. We will continue to follow the patient perioperatively and provide further recommendations accordingly. Nurse practitioner note has been reviewed, I agree with documented findings and plan of care. Patient was seen and examined. Objective - Vital Signs Vital signs: Vital Signs Temp 98.1 F 04/20/24 07:03 Pulse 79 04/20/24 08:35 Resp 18 04/20/24 08:35 BP 106/70 04/20/24 07:03 Pulse Ox 96 04/20/24 08:17 FiO2 21 04/19/24 01:12 Intake & Output 04/19/24 04/20/24 04/20/24 18:59 06:59 18:59 Output Total 425 Balance -425 Output: Urine 425 Other: Voiding Method Urinal Urinal Diaper Diaper # Voids 2 - Labs CBC & Chem 7: 04/18/24 16:33 04/18/24 16:33 Labs: Abnormal Lab Results - Last 24 Hours (Table) 04/19/24 Range/Units 11:30 Urine Protein 1+ H (Negative) Urine Blood Small H (Negative) Ur Leukocyte Esterase Trace H (Negative) Urine RBC 32 H (0-5) /hpf Urine WBC 13 H (0-5) /hpf Calcium Oxalate Crystal Rare H (None) /hpf Urine Mucus Few H (None) /hpf
[2024-04-20] MEDS ORDERED: NALOXONE 0.4 MG/ML 1 ML VIAL IV PRN (13:41)
--- NOTE | 2024-04-20 13:49 | XR ---
Fluoroscopy INDICATION: Pain FINDINGS: Fluoroscopy time: 2 minutes 38.2 seconds. Total dose area product (DAP) in uGy*m?, mGy*cm? (or similar): 30.257 Images obtained: 4. Images document a left hip pain. IMPRESSION: 1. Documentation of fluoroscopy. [facility], , 04/20/2024 1:47 PM
--- NOTE | 2024-04-20 13:50 | FL ---
Fluoroscopy INDICATION: Pain FINDINGS: Fluoroscopy time: 2 minutes 16 seconds. Total dose area product (DAP) in uGy*m?, mGy*cm? (or similar): 30.257 Images obtained: 0. IMPRESSION: 1. Documentation of fluoroscopy. [facility], , 04/20/2024 1:48 PM
--- NOTE | 2024-04-20 14:07 | P.OP ---
Date of Procedure: 04/20/24 Preoperative Diagnosis: Left intertrochanteric femur fracture Postoperative Diagnosis: Same Procedure(s) Performed: Operative fixation of the left hip with intramedullary implant Implants: Synthes TFNA 11mm short nail 100mm lag screw 32mm distal interlocking screw Anesthesia: spinal Surgeon: Nato Briceño Estimated Blood Loss (ml): 100 Pathology: none sent Condition: stable Disposition: PACU Indications for Procedure: Unstable left hip fracture in an ambulatory patient Operative Findings: Displaced and comminuted left intertrochanteric femur fracture with complete fracture of the greater trochanter Description of Procedure: After appropriate consent was obtained detailing the benefits and risks of surgery. The risks of surgery include risks of anesthesia which was discussed in greater detail with the anesthesia team prior to surgery, scarring, risk of swelling and possible permanent swelling of the affected extremity, superficial vs deep infections, damage to surrounding structures including muscles, nerve, tendons, blood vessels, hardware failure, fracture mal or non union, need for additional future surgery, blood clots, stroke, even are possible with surgery were discussed with the patient and he wishes to proceed when medically optimized. Detailed descriptions of these risks are included in the consent document that patient was provided a copy with for review prior to his procedure. Benefits include stabilizing the fracture and helping with baseline pain, providing the patient with the opportunity to weight bear on the extremity after surgery. The patient was brought to the operating room, and after induction of spinal anesthesia the patient was placed supine on the [place] table. The left hip fracture was reduced with a combination of traction and internal rotation. Appropriate reduction was confirmed with fluoroscopy. The left hip was then prepped and draped in a normal fashion. A standard timeout was performed again confirming the appropriate patient and operative site. the appropriate starting point on the greater trochanter was initially identified with fluoroscopy, the incision just proximal to the greater trochanter in line with the femur was marked out, the incision was carried down through the skin and through the overlying fascia in order to palpate the greater trochanter. a 3.2 mm guidepin was utilized to get the initial starting point for the opening reamer the opening reamer was then placed over the guidepin to open up the proximal aspect of the femur taking care to medialize the reamer so was not to fall into the more laterally oriented fracture line, a 12.5 mm reamer was then placed over a guidewire which was exchanged for the initial guidepin in order to adequately open the distal aspect of the canal to allow for ease of nail insertion the Synthes short 11 mm femoral nail, this was then gently inserted into a proper depth for the femoral neck lag screw, the trocar sleeve for the lag screw was then inserted the incision was carried down through the skin and overlying fascia and the trocar was placed on the bone. an additional pin was placed through the aiming jig in order to properly estimate the trajectory of the head screw on the lateral image. Position was confirmed on AP and lateral films the guidepin for the head screw was then placed in appropriate position again confirmed with imaging, screw was then predrilled drilled and an appropriate sized screw length selected and placed. Manual compression was then performed to further reduce the fracture, the head screw was then locked but allowed to slide for additional compression. attention was then placed to the distal interlocking screw the trocar was inserted and appropriate position confirmed with imaging the cortex was drilled and an appropriate size screw was placed and imaging confirmed once again on fluoroscopy guide was removed and final images demonstrated appropriate fracture reduction and position of the implants the wounds were copiously irrigated with normal saline and the wounds closed with Vicryl sutures and strata fix barbed suture, skin glue was then applied, sterile dressings were then applied, patient tolerated the procedure well and was transported to the PACU in stable condition.
--- NOTE | 2024-04-20 14:49 | P.PN ---
Subjective Progress Note Date: 04/20/24 I am seeing this patient for a preoperative pulmonary evaluation. The patient had a fall and sustained a left hip fracture. The patient is known to have advanced COPD. He is a chronic smoker. He is oxygen dependent and he continues to smoke 1 to 1-1/2 packs of cigarettes a day and he has [id number] smoking history. He used to drink alcohol in the past and currently is not drinking. He moves around with the help of a motorized wheelchair. He is extensively debilitated. He also has undergone previous back surgeries. He has hypertension hyperlipidemia, questionable history of coronary disease and previous [place] although this is not clear. Unaware of any previous cardiac evaluations. Unaware of any previous pulmonary evaluation. Chest x-ray is consistent with COPD. He is typically on oxygen at 4 to 5 L and currently is on 3 L with a pulse ox of 96%. Chest x-ray is consistent with COPD. The white cell count is 16 with a heme of 17.9 and a platelet count of 262. BUN 17 with a creatinine 1.2. Sodium levels at 136. Free of any chest pain for now. Denies having any worsening shortness of breath and there is no signs of any acute COPD exacerbation. No recent PFTs or sedation. No recent pneumonias. No frequent hospitalization due to COPD related complications. Cardiac rhythm is sinus. He does have a low voltage. Echocardiogram is to be done. He does have a chronic cough. No significant sputum production. No hemoptysis. He is a poor historian. On a separate note, the patient states that he has obstructive sleep apnea. He has a device at home. Here in the hospital, he was offered a APAP machine pressures of 5/15 cm of water. On 04/20/2024, the patient is to be taken to the operating room for ORIF of the hip fracture. Condition remains unchanged and he remains on 2 L of oxygen by nasal cannula. Echocardiogram was performed yesterday and the patient was found to have normal ejection fraction of 55 to 60%. No significant valvular abnormalities. No new labs are available from today. Objective - Vital Signs Vital signs: Vital Signs Temp 98.1 F 04/20/24 07:03 Pulse 72 04/20/24 10:41 Resp 18 04/20/24 10:41 BP 105/57 04/20/24 10:41 Pulse Ox 95 04/20/24 10:41 FiO2 21 04/19/24 01:12 Intake & Output 04/19/24 04/20/24 04/20/24 18:59 06:59 18:59 Output Total 425 Balance -425 Output: Urine 425 Other: Voiding Method Urinal Urinal Diaper Diaper # Voids 2 - Exam The patient appeared well nourished and normally developed. Vital signs as documented. Obese, comfortable currently on 3 L of oxygen by nasal cannula. Body mass index is 31.2 Head exam is unremarkable. No scleral icterus or corneal arcus noted. Neck is without jugular venous distension, thyromegaly, or carotid bruits. Carotid upstrokes are brisk bilaterally. Lungs show diminished breath sounds bilaterally, few scattered expiratory wheeze Cardiac exam reveals the PMI to be normally sized and situated. Rhythm is regular. First and second heart sounds normal. No murmurs, rubs or gallops. Abdominal exam reveals normal bowel sounds, no masses, no organomegaly and no aortic enlargement. Extremities are nonedematous and both femoral and pedal pulses are normal. Examination of the skin revealed no evidence of significant rashes, suspicious appearing nevi or other concerning lesions. Neurologically, the patient is awake and alert and the patient does not have any focal neurological deficit. Cranial nerves are essentially intact. - Labs CBC & Chem 7: 04/18/24 16:33 04/18/24 16:33 Labs: Abnormal Lab Results - Last 24 Hours (Table) 04/19/24 Range/Units 11:30 Urine Protein 1+ H (Negative) Urine Blood Small H (Negative) Ur Leukocyte Esterase Trace H (Negative) Urine RBC 32 H (0-5) /hpf Urine WBC 13 H (0-5) /hpf Calcium Oxalate Crystal Rare H (None) /hpf Urine Mucus Few H (None) /hpf Assessment and Plan Plan: Left intertrochanteric hip fracture, post fall, awaiting ORIF Advanced COPD, oxygen dependent, without any signs of exacerbation Chronic limitation-/capacity, multifactorial, partly related to his advanced COPD in addition to chronic musculoskeletal weakness and chronic back pain and previous spinal surgeries. Chronic smoker Obesity Obstructive sleep apnea, maintained on CPAP on outpatient basis Hypertension Hyperlipidemia Mild leukocytosis Plan Patient's COPD is severe and stable. Obviously, in the presence of advanced COPD, the patient carries a high operative risk for developing acute on top of chronic hypoxic and hypercapnic respiratory failure despite the fact that the surgery itself which is an orthopedic surgery is considered to be a lower risk surgery.. The patient was made aware of that. No absolute pulmonary contraindication for surgery and from the pulmonary standpoint, surgery can be done with the understanding that the patient needs to be monitored very closely postop and provided appropriate pulmonary support should there be any needs. Prefer to undergo surgery under spinal anesthesia, if unable to do so, the alternative would be general anesthesia. The patient should be able to continue Trelegy Ellipta from home. While in the hospital, he was switched to Symbicort and DuoNeb updrafts 4 times a day. No need for systemic steroids for now. Continue CPAP support with pressures of 5/15 cm of water/APAP mode. Echocardiogram shows a normal LV function Without signs of any postoperative pulmonary complications I will continue to follow
[2024-04-20] MEDS: HYDROcodone/APAP 7.5-325MG 1 EACH TAB PO PRN (16:30)
[2024-04-20 17:39] LABS: Basophils % (A) 0 %; Eosinophils # (A) 0.4 k/uL (0-0.7); Eosinophils % (A) 3 %; Lymphocytes % (A) 8 %; MCH 33.3 pg (25.0-35.0); MCHC 33.4 g/dL (31.0-37.0); MCV 99.6 fL (80.0-100.0); Mean Platelet Volume 7.7; Monocytes # (A) 0.6 k/uL (0-1.0); Monocytes % (A) 5 %; Neutrophils # (A) 10.7 k/uL (1.3-7.7); Neutrophils % (A) 83 %; Platelet Count 223 k/uL (150-450); RBC 4.31 m/uL (4.30-5.90); RDW 12.4 % (11.5-15.5); WBC 12.9 k/uL (3.8-10.6)
[2024-04-20 17:51] LABS: HGB 14.4 gm/dL (13.0-17.5)
--- NOTE | 2024-04-20 19:41 | PN ---
PROGRESS NOTE DATE OF SERVICE: 04/20/2024 CHIEF COMPLAINT: Fracture of the left hip. HISTORY OF PRESENT ILLNESS: This gentleman is going to the operating room. He has been cleared by Pulmonology and Surgery. PHYSICAL EXAMINATION: CARDIAC EXAM: Normal. CHEST: Demonstrates occasional rales and rhonchi. ABDOMEN: Soft, nontender. IMPRESSION: 1. Fracture of the left hip. 2. Chronic obstructive pulmonary disease. 3. History of coronary artery disease. PLAN: ORIF of the left hip today. MMODL / IJN: [id number] /
[2024-04-20] MEDS: ASPIRIN 81 MG PO SCH (20:14)
--- NOTE | 2024-04-21 08:43 | P.PN ---
Subjective Progress Note Date: 04/21/24 Principal diagnosis: Intertrochanteric fracture left hip. Multiple medical comorbidities. Status post closed reduction with insertion of intertrochanteric nail left hip. This is a 69-year-old male who is postop day #1 status post closed reduction with insertion of IT nail of the left hip. He states that he is having some pain this morning. He has not yet been up with physical therapy. He has no new complaints or concerns today. Vital signs are stable. Objective - Vital Signs Vital signs: Vital Signs Temp 98.2 F 04/21/24 02:27 Pulse 86 04/21/24 02:27 Resp 15 04/21/24 02:27 BP 116/67 04/21/24 02:27 Pulse Ox 95 04/21/24 02:27 FiO2 21 04/19/24 01:12 Intake & Output 04/20/24 04/21/24 04/21/24 18:59 06:59 18:59 Intake Total 1500 750 Output Total 50 1275 Balance 1450 -525 Intake: IV 1500 Oral 750 Output: Urine 1275 Estimated Blood Loss 50 Other: Voiding Method Urinal Diaper # Voids 2 - Exam This is a pleasant 69-year-old male in no acute distress. He is alert and or iented x 3. Exam of the lower extremities reveals his dressings are clean, dry and intact. He has full foot and ankle motion without difficulty or pain. Neurovascular status to the lower extremities is intact. - Labs CBC & Chem 7: 04/22/24 14:10 04/18/24 16:33 Labs: Abnormal Lab Results - Last 24 Hours (Table) 04/20/24 Range/Units 16:53 WBC 12.9 H (3.8-10.6) k/uL Neutrophils # 10.7 H (1.3-7.7) k/uL Assessment and Plan (1) COPD (chronic obstructive pulmonary disease) Current Visit: Yes Status: Acute Code(s): J44.9 - CHRONIC OBSTRUCTIVE PULMONARY DISEASE, UNSPECIFIED SNOMED Code(s): 63303025 (2) Intertrochanteric fracture Current Visit: Yes Status: Acute Priority: High Code(s): S72.143A - DISPLACED INTERTROCHANTERIC FRACTURE OF UNSP FEMUR, INIT SNOMED Code(s): 498226066 (3) Smoker Current Visit: No Status: Acute Code(s): F17.200 - NICOTINE DEPENDENCE, UNSPECIFIED, UNCOMPLICATED SNOMED Code(s): 01785324 Plan: The clinical findings are discussed with the patient. He will work with physical therapy today on bed to chair transfers. I had a lengthy discussion with the patient regarding possible inpatient rehab placement. He would prefer to go home if possible. I advised the patient that he would have to demonstrate that he is able to transfer independently over the next couple of days to be considered a candidate for home discharge. Patient seen and independently evaluated by myself. I agree with the above documentation. Has has improvement in his left hip pain after stabilization, was able to ambulate with therapy to the chair later in the day and put weight on the left leg. Denies any issues with chest pain or shortness of breath. D ressings are clean and dry, gentle hip motion is well tolerated with minimal pain, patient has intact motor and sensory function to the distal aspect of the left leg, he has palpable DP pulse to the foot, there is no calf tenderness. WBAT LLE continue PT and OT for appropriate discharge recommendations Patient has voiced his desire to avoid any rehab facitlities due to the restrictions on smoking, we had a detailed discussion on the harmful effects of smoking on his fracture healing and that he should make all attempts to avoid and at a minimum limit his smoking during the recovery process of his hip multimodal pain regimen Aspirin 81mg BID for DVT PPX appreciate ongoing medical managment by IM, cardiology, and pulmonology patient will follow up with me in two weeks dressings should remain in place until his follow up visit if dressings need to be changed thay may be replaced with dry dressings
--- NOTE | 2024-04-21 09:35 | P.PN ---
Subjective HISTORY OF PRESENT ILLNESS: This is a 69-year-old male patient who does not follow with cardiology with past medical history of hypertension, hyperlipidemia, possible diabetes, possible history of [place] but patient does not recall ever having cardiac catheterization and is unaware of any CAD, severe COPD, obstructive sleep apnea, nicotine dependence smokes 1-1 and half packs per day for 60 years and has no desire to quit. Prior alcohol and drug abuse, quit 25 years ago. Patient is very limited in his physical activity, uses a motorized wheelchair for which she is used for at least 25 years for unclear reasons. He is very short of breath with activity and attributes this to his COPD. Presented to the hospital after falling and sustaining a hip fracture. He got his motorized wheelchair stuck in an ice and he was trying to move it when he slipped on ice and fell onto his left hip. We were asked see the patient in consultation for preoperative clearance. Diagnostics -EKG: Sinus rhythm evidence of possible prior [place], nonspecific ST-T wave abnormalities with poor baseline -Chest x-ray: Mild cardiomegaly, may be a right middle lobe infiltrate, clinical correlation recommended -Laboratory studies: White blood cell count 16,000, hemoglobin 17.9, sodium 136, potassium 5.1, BUN 17, creatinine 1.21 -Home cardiac medications: Aspirin 81 mg daily, atorvastatin 40 mg p.o. nightly, lisinopril 10 mg p.o. daily -Prior stress test: None -Echocardiogram: None -Cardiac catheterization: None 04/20/2024 Patient was seen and examined resting comfortably in bed. He denies any chest discomfort. Continues to have shortness of breath but at his baseline. Denies edema. Denies orthopnea or PND. Has had no palpitations, dizziness or lighth eadedness. He is scheduled to undergo closed reduction and insertion IT nail left hip. Echocardiogram with Doppler study yesterday showed normal LV systolic function with an ejection fraction of 55 to 60%. 04/21/2024 Patient examined this morning at the bedside. Patient is status post open fixation of left hip with intramedullary implant. Postop day #1. Patient denies any chest pain or pressure. He denies any shortness of breath. Vital signs are stable. PHYSICAL EXAM: VITAL SIGNS: Reviewed. GENERAL: Well-developed in no acute distress. NECK: Supple. No JVD or thyromegaly LUNGS: Respirations even and unlabored. Lungs essentially clear to auscultation bilaterally. HEART: Regular rate and rhythm. S1 and S2 heard. EXTREMITIES: Normal range of motion. No clubbing or cyanosis. Peripheral pulses intact. No lower extremity edema ASSESSMENT: 1. Intertrochanteric fracture 2. Severe COPD 3. Nicotine dependence 4. Physical debility 5. Hypertension 6. Hyperlipidemia 7. Questionable history of [place] 8. Questionable history of diabetes 9. Obstructive sleep apnea PLAN: Continue current cardiac medications Patient is currently stable from a cardiac standpoint with no further inpatient recommendations We will sign off. Please reconsult if needed. Nurse practitioner note has been reviewed by physician. Signing provider agrees with the documented findings, assessment, and plan of care documented by [employer]ER as a scribe. Objective - Vital Signs Vital signs: Vital Signs Temp 98.2 F 04/21/24 06:40 Pulse 86 04/21/24 09:26 Resp 17 04/21/24 08:20 BP 113/71 04/21/24 06:40 Pulse Ox 96 04/21/24 09:26 FiO2 21 04/19/24 01:12 Intake & Output 04/20/24 04/21/24 04/21/24 18:59 06:59 18:59 Intake Total 1500 750 Output Total 50 1275 400 Balance 1450 -525 -400 Intake: IV 1500 Oral 750 Output: Urine 1275 400 Estimated Blood Loss 50 Other: Voiding Method Urinal Urinal Diaper # Voids 2 1 # Bowel Movements 0 - Labs CBC & Chem 7: 04/20/24 16:53 04/18/24 16:33 Labs: Abnormal Lab Results - Last 24 Hours (Table) 04/20/24 Range/Units 16:53 WBC 12.9 H (3.8-10.6) k/uL Neutrophils # 10.7 H (1.3-7.7) k/uL
--- NOTE | 2024-04-21 13:43 | P.PN ---
Subjective Progress Note Date: 04/21/24 I am seeing this patient for a preoperative pulmonary evaluation. The patient had a fall and sustained a left hip fracture. The patient is known to have advanced COPD. He is a chronic smoker. He is oxygen dependent and he continues to smoke 1 to 1-1/2 packs of cigarettes a day and he has [id number] smoking history. He used to drink alcohol in the past and currently is not drinking. He moves around with the help of a motorized wheelchair. He is extensively debilitated. He also has undergone previous back surgeries. He has hypertension hyperlipidemia, questionable history of coronary disease and previous [place] although this is not clear. Unaware of any previous cardiac evaluations. Unaware of any previous pulmonary evaluation. Chest x-ray is consistent with COPD. He is typically on oxygen at 4 to 5 L and currently is on 3 L with a pulse ox of 96%. Chest x-ray is consistent with COPD. The white cell count is 16 with a heme of 17.9 and a platelet count of 262. BUN 17 with a creatinine 1.2. Sodium levels at 136. Free of any chest pain for now. Denies having any worsening shortness of breath and there is no signs of any acute COPD exacerbation. No recent PFTs or sedation. No recent pneumonias. No frequent hospitalization due to COPD related complications. Cardiac rhythm is sinus. He does have a low voltage. Echocardiogram is to be done. He does have a chronic cough. No significant sputum production. No hemoptysis. He is a poor historian. On a separate note, the patient states that he has obstructive sleep apnea. He has a device at home. Here in the hospital, he was offered a APAP machine pressures of 5/15 cm of water. On 04/20/2024, the patient is to be taken to the operating room for ORIF of the hip fracture. Condition remains unchanged and he remains on 2 L of oxygen by nasal cannula. Echocardiogram was performed yesterday and the patient was found to have normal ejection fraction of 55 to 60%. No significant valvular abnormalities. No new labs are available from today. The patient is seen today April 21, 2024 in follow-up on the regular medical floor. He is currently resting in bed. Awake and alert in no acute distress. Maintaining O2 saturations in the 90s on 2 L/min per nasal cannula. He did undergo an operative fixation of the left hip fracture with intramedullary implant, postoperative day #1. His pain is well-controlled. No new labs today. He remains on DuoNeb inhalations, Symbicort. NicoDerm patch in place. Objective - Vital Signs Vital signs: Vital Signs Temp 98.2 F 04/21/24 06:40 Pulse 82 04/21/24 12:58 Resp 17 04/21/24 08:20 BP 113/71 04/21/24 06:40 Pulse Ox 96 04/21/24 09:26 FiO2 21 04/19/24 01:12 Intake & Output 04/20/24 04/21/24 04/21/24 18:59 06:59 18:59 Intake Total 1500 750 Output Total 50 1275 400 Balance 1450 -525 -400 Intake: IV 1500 Oral 750 Output: Urine 1275 400 Estimated Blood Loss 50 Other: Voiding Method Urinal Urinal Diaper # Voids 2 1 # Bowel Movements 0 - Exam GENERAL EXAM: Alert, pleasant 69-year-old male, on 2 L nasal cannula, fairly comfortable in no apparent distress. HEAD: Normocephalic. EYES: Normal reaction of pupils, equal size. NOSE: Clear with pink turbinates. THROAT: No erythema or exudates. NECK: No masses, no JVD. CHEST: No chest wall deformity. LUNGS: Equal air entry with no crackles, wheeze, rhonchi or dullness.. CVS: S1 and S2 normal with no audible murmur, regular rhythm. ABDOMEN: No hepatosplenomegaly, normal bowel sounds, no guarding or rigidity. SPINE: No scoliosis or deformity SKIN: No rashes CENTRAL NERVOUS SYSTEM: No focal deficits, tone is normal in all 4 extremities. EXTREMITIES: Left hip dressing dry and intact. There is no peripheral edema. No clubbing, no cyanosis. Peripheral pulses are intact. - Labs CBC & Chem 7: 04/20/24 16:53 04/18/24 16:33 Labs: Abnormal Lab Results - Last 24 Hours (Table) 04/20/24 Range/Units 16:53 WBC 12.9 H (3.8-10.6) k/uL Neutrophils # 10.7 H (1.3-7.7) k/uL Assessment and Plan Assessment: Left intertrochanteric hip fracture, post fall, status post repair on 04/20/2024 Advanced COPD, oxygen dependent, without any signs of exacerbation Chronic limitation-/capacity, multifactorial, partly related to his advanced COPD in addition to chronic musculoskeletal weakness and chronic back pain and previous spinal surgeries. Chronic smoker Obesity Obstructive sleep apnea, maintained on CPAP on outpatient basis Hypertension Hyperlipidemia Mild leukocytosis Plan: The patient was seen and evaluated Labs and medications reviewed Remains on DuoNeb inhalations, Symbicort Stable and on 2 L nasal cannula Evaluate for possible home oxygen Educated regarding the importance of smoking cessation NicoDerm patch remains in place Continue Trelegy and albuterol in the outpatient setting Plan is for subacute rehabilitation at discharge I have personally seen and examined the patient, performed the documentation and the assessment and plan as written. Number of minutes spent on the visit: 10 Dictation was produced using [employer] dictation software. Please excuse any g rammatical, word or spelling errors.
--- NOTE | 2024-04-21 19:35 | PN ---
PROGRESS NOTE DATE OF SERVICE: 04/21/2024 CHIEF COMPLAINT: Status post left hip fracture. HISTORY OF PRESENT ILLNESS: This gentleman is doing well. He is awake and alert. He is still having some pain, but otherwise doing well. He has had no fever, chills, chest pain, etc. PHYSICAL EXAMINATION: VITAL SIGNS: Normal. CHEST: Clear. CARDIAC: Normal. ABDOMEN: Soft, nontender. IMPRESSION: 1. Status post open reduction and internal fixation of the left hip. 2. Chronic obstructive pulmonary disease. 3. History of coronary artery disease. PLAN: Start post therapy rehab and a discharge plan. MMODL / IJN: [id number] /
--- NOTE | 2024-04-22 11:18 | P.PN ---
Subjective Progress Note Date: 04/22/24 This is a 69-year-old male who is status post operative fixation of the left hip with intramedullary implant. This is postoperative day #1 and patient is seen and evaluated at bedside today. Patient states that his pain is controlled. Patient states that he still needs assistance with transfers. Patient denies any new complaints today. Objective - Vital Signs Vital signs: Vital Signs Temp 98.5 F 04/22/24 07:03 Pulse 76 04/22/24 07:03 Resp 20 04/22/24 07:03 BP 115/69 04/22/24 07:03 Pulse Ox 98 04/22/24 07:03 FiO2 21 04/19/24 01:12 Intake & Output 04/21/24 04/22/24 04/22/24 18:59 06:59 18:59 Output Total 400 402 Balance -400 -402 Output: Urine 400 402 Other: Voiding Method Urinal Urinal # Voids 4 1 # Bowel Movements 0 - Exam Vital signs are stable. Patient is in no acute distress and is alert and oriented 3. Calf is soft and nontender to palpation. Dressing is clean, dry, and intact. Patient has full foot and ankle motion without pain or difficulty. Sensation intact. Neurovascular status and circulatory status are intact. - Labs CBC & Chem 7: 04/20/24 16:53 04/18/24 16:33 Assessment and Plan Assessment: Status post operative fixation of the left hip with intramedullary implant (1) Intertrochanteric fracture Current Visit: Yes Status: Acute Priority: High Code(s): S72.143A - DISPLACED INTERTROCHANTERIC FRACTURE OF UNSP FEMUR, INIT SNOMED Code(s): 559986954 Plan: Continue routine postop care and pain control. Continue anticoagulation. Weightbearing as tolerated with a walker. Leave dressing in place for 7 days. Appreciate input from internal medicine. Anticipate discharge home with homecare or to ECF in the next 24-48 hours.
--- NOTE | 2024-04-22 12:42 | P.PN ---
Subjective Progress Note Date: 04/22/24 I am seeing this patient for a preoperative pulmonary evaluation. The patient had a fall and sustained a left hip fracture. The patient is known to have advanced COPD. He is a chronic smoker. He is oxygen dependent and he continues to smoke 1 to 1-1/2 packs of cigarettes a day and he has [id number] smoking history. He used to drink alcohol in the past and currently is not drinking. He moves around with the help of a motorized wheelchair. He is extensively debilitated. He also has undergone previous back surgeries. He has hypertension hyperlipidemia, questionable history of coronary disease and previous [place] although this is not clear. Unaware of any previous cardiac evaluations. Unaware of any previous pulmonary evaluation. Chest x-ray is consistent with COPD. He is typically on oxygen at 4 to 5 L and currently is on 3 L with a pulse ox of 96%. Chest x-ray is consistent with COPD. The white cell count is 16 with a heme of 17.9 and a platelet count of 262. BUN 17 with a creatinine 1.2. Sodium levels at 136. Free of any chest pain for now. Denies having any worsening shortness of breath and there is no signs of any acute COPD exacerbation. No recent PFTs or sedation. No recent pneumonias. No frequent hospitalization due to COPD related complications. Cardiac rhythm is sinus. He does have a low voltage. Echocardiogram is to be done. He does have a chronic cough. No significant sputum production. No hemoptysis. He is a poor historian. On a separate note, the patient states that he has obstructive sleep apnea. He has a device at home. Here in the hospital, he was offered a APAP machine pressures of 5/15 cm of water. On 04/20/2024, the patient is to be taken to the operating room for ORIF of the hip fracture. Condition remains unchanged and he remains on 2 L of oxygen by nasal cannula. Echocardiogram was performed yesterday and the patient was found to have normal ejection fraction of 55 to 60%. No significant valvular abnormalities. No new labs are available from today. The patient is seen today April 21, 2024 in follow-up on the regular medical floor. He is currently resting in bed. Awake and alert in no acute distress. Maintaining O2 saturations in the 90s on 2 L/min per nasal cannula. He did undergo an operative fixation of the left hip fracture with intramedullary implant, postoperative day #1. His pain is well-controlled. No new labs today. He remains on DuoNeb inhalations, Symbicort. NicoDerm patch in place. The patient is seen today April 22, 2024 in follow-up on the regular medical floor. He is awake and alert in no acute distress. Currently resting fairly comfortably in bed. Denies any worsening shortness of breath, cough or congestion. Maintaining O2 saturations in the 90s on 2 L/min per nasal cannula. He has been afebrile. Hemodynamically stable. Surgical site pain as well managed. He is on DuoNeb inhalations, Symbicort. NicoDerm patch in place. Receiving Dilaudid and alternating with [place] for pain control. Objective - Vital Signs Vital signs: Vital Signs Temp 98.5 F 04/22/24 07:03 Pulse 80 04/22/24 11:58 Resp 20 04/22/24 07:03 BP 115/69 04/22/24 07:03 Pulse Ox 98 04/22/24 07:03 FiO2 21 04/19/24 01:12 Intake & Output 04/21/24 04/22/24 04/22/24 18:59 06:59 18:59 Output Total 400 402 Balance -400 -402 Output: Urine 400 402 Other: Voiding Method Urinal Urinal # Voids 4 1 # Bowel Movements 0 - Exam GENERAL EXAM: Alert, 69-year-old male, on 2 L nasal cannula, resting in bed, comfortable in no apparent distress. HEAD: Normocephalic. EYES: Normal reaction of pupils, equal size. NOSE: Clear with pink turbinates. THROAT: No erythema or exudates. NECK: No masses, no JVD. CHEST: No chest wall deformity. LUNGS: Equal air entry with no crackles, wheeze, rhonchi or dullness.. CVS: S1 and S2 normal with no audible murmur, regular rhythm. ABDOMEN: No hepatosplenomegaly, normal bowel sounds, no guarding or rigidity. SPINE: No scoliosis or deformity SKIN: No rashes CENTRAL NERVOUS SYSTEM: No focal deficits, tone is normal in all 4 extremities. EXTREMITIES: Left hip dressing dry and intact. There is no peripheral edema. No clubbing, no cyanosis. Peripheral pulses are intact. - Labs CBC & Chem 7: 04/20/24 16:53 04/18/24 16:33 Assessment and Plan Assessment: Left intertrochanteric hip fracture, post fall, status post repair on 04/20/2024 Advanced COPD, oxygen dependent, without any signs of exacerbation Chronic limitation-/capacity, multifactorial, partly related to his advanced COPD in addition to chronic musculoskeletal weakness and chronic back pain and previous spinal surgeries. Chronic smoker Obesity Obstructive sleep apnea, maintained on CPAP on outpatient basis Hypertension Hyperlipidemia Mild leukocytosis Plan: The patient was seen and evaluated Medications reviewed Remains on DuoNeb inhalations, Symbicort Stable and on 2 L nasal cannula Educated regarding smoking cessation NicoDerm patch remains in place Plan is for [facility] at discharge This patient was seen independently by the pulmonary nurse practitioner addressing pulmonary issues I have personally seen and examined the patient, performed the documentation and the assessment and plan as written. Number of minutes spent on the visit: 24 Dictation was produced using [employer] dictation software. Please excuse any gram matical, word or spelling errors.
[2024-04-22 14:45] LABS: Basophils % (A) 0 %; Eosinophils # (A) 0.5 k/uL (0-0.7); Eosinophils % (A) 6 %; HCT 42.2 % (39.0-53.0); HGB 13.6 gm/dL (13.0-17.5); Lymphocytes # (A) 0.7 k/uL (1.0-4.8); Lymphocytes % (A) 7 %; MCH 32.9 pg (25.0-35.0); MCHC 32.3 g/dL (31.0-37.0); MCV 101.8 fL (80.0-100.0); Mean Platelet Volume 7.7; Monocytes # (A) 0.4 k/uL (0-1.0); Monocytes % (A) 4 %; Neutrophils # (A) 7.4 k/uL (1.3-7.7); Neutrophils % (A) 81 %; Platelet Count 192 k/uL (150-450); RBC 4.14 m/uL (4.30-5.90); RDW 12.4 % (11.5-15.5); WBC 9.1 k/uL (3.8-10.6)
[2024-04-22] MEDS: NICOTINE 14MG/24HR PATCH TRANSDERM STA (20:56)
[2024-04-23 07:12] VITALS: RESP 18
--- NOTE | 2024-04-23 07:54 | P.DS ---
Providers Date of admission: 04/18/24 16:41 Expected date of discharge: 04/23/24 Attending physician: Nato Briceño MD Consults: 04/18/24 16:13 Consult Physician Routine Consulting Provider: Dayton Neff Consult Reason/Comments: medical clearance Do you want consulting provider notified?: Yes 04/18/24 18:44 Consult Physician Routine Consulting Provider: Juan Meléndez Reason/Comments: COPD, frx. hip Do you want consulting provider notified?: Yes, Notify in am Primary care physician: Dayton Neff - Discharge Diagnosis(es) (1) COPD (chronic obstructive pulmonary disease) Current Visit: Yes Status: Acute (2) Intertrochanteric fracture Current Visit: Yes Status: Acute Priority: High (3) Smoker Current Visit: No Status: Acute Hospital Course: This is a 69-year-old male who is admitted to [facility] on 04/18/2024 after falling and sustaining injury to the left hip. On exam and x- ray in the emergency department he is found to have an intertrochanteric fracture of the left hip. He is admitted to our service for surgical intervention and care. Patient is taken to surgery for close reduction and insertion of intertrochanteric nail of the left hip on 04/19/2024. The procedure was performed without complication or sequelae. The patient is doing fairly well postoperatively. Vital signs and labs are stable on postoperative day # 4. Patient is discharged to inpatient rehab in stable condition. Please see med rec for accurate list of discharge medications. Patient Condition at Discharge: Stable Plan - Discharge Summary Discharge Rx Participant: Yes New Discharge Prescriptions: New HYDROcodone/APAP 7.5-325MG [[place] 7.5-325] 1 - 2 tab PO Q6HR PRN #32 tab PRN Reason: Pain Sennosides-Docusate Sodium [Senokot-S] 1 tab PO BID #60 tablet Aspirin [Adult Low Dose Aspirin EC] 81 mg PO BID #1 tab No Action lisinopriL [Zestril] 10 mg PO HS@1999 Albuterol Inhaler [Ventolin Hfa Inhaler] 2 puff INHALATION RT-QID PRN PRN Reason: Shortness Of Breath Aspirin EC [Ecotrin Low Dose] 81 mg PO HS@2000 Ergocalciferol [Vitamin D2 (1250 Mcg = 41103 Iu)] 1,250 mcg PO Q30D Atorvastatin Calcium [Lipitor] 40 mg PO HS@1999 Tamsulosin [Flomax] 0.4 mg PO HS@1999 Fluticasone/Umeclidin/Vilanter [Trelegy Ellipta 100-62.5-25] 1 puff INHALATION RT-DAILY Discharge Medication List lisinopriL [Zestril] 10 mg PO HS@199903/13/18 [History] Albuterol Inhaler [Ventolin Hfa Inhaler] 2 puff INHALATION RT-QID PRN 05/25/20 [History] Aspirin EC [Ecotrin Low Dose] 81 mg PO HS@199905/25/20 [History] Atorvastatin Calcium [Lipitor] 40 mg PO HS@199905/25/20 [History] Ergocalciferol [Vitamin D2 (1250 Mcg = 40703 Iu)] 1,250 mcg PO Q30D 04/18/24 [History] Fluticasone/Umeclidin/Vilanter [Trelegy Ellipta 100-62.5-25] 1 puff INHALATION RT-DAILY 04/18/24 [History] Tamsulosin [Flomax] 0.4 mg PO HS@199904/18/24 [History] Aspirin [Adult Low Dose Aspirin EC] 81 mg PO BID #1 tab 04/23/24 [Rx] HYDROcodone/APAP 7.5-325MG [[place] 7.5-325] 1 - 2 tab PO Q6HR PRN #32 tab 04/23/24 [Rx] Sennosides-Docusate Sodium [Senokot-S] 1 tab PO BID #60 tablet 04/23/24 [Rx] Follow up Appointment(s)/Referral(s): Dayton Neff MD [Primary Care Provider] [facility] - As Needed Nato Briceño MD [STAFF PHYSICIAN] - 3 Weeks Activity/Diet/Wound Care/Special Instructions: May bear weight as tolerated with transfers. Remove postoperative dressing 7 days postoperatively. May shower. Discharge Disposition: TRANSFER TO SNF/F
--- NOTE | 2024-04-23 12:23 | PN ---
PROGRESS NOTE DATE OF SERVICE: 04/22/2024 CHIEF COMPLAINT: 1. Status post left hip fracture. 2. Coronary artery disease. 3. Chronic obstructive pulmonary disease. PLAN: Continue with therapy and he will probably be going to rehab facility soon. MMODL / KIMN: [id number] /
[2024-04-23 14:09] VITALS: BP 121/78; PULSE 86; TEMP 98.7
--- NOTE | 2024-04-23 16:43 | P.PN ---
Progress Note - Text Progress Note Date: 04/23/24 Patient evaluated by myself today. Has has further improvement in his left hip pain after stabilization, was able to ambulate again with therapy to the chair later in the day and put weight on the left leg. He is finalizing his plans with case managment for placement, despite his issues with smoking policies he is amenable to attending therapy likely at a location in [place], [place]. Denies any issues with chest pain or shortness of breath Dressings are clean and dry gentle hip motion is well tolerated with minimal pain today patient is able to actively move the left hip with minimal discomfort patient has intact motor and sensory function to the distal aspect of the left leg he has palpable DP pulse to the foot, there is no calf tenderness. Hemoglobin remains at a good level postoperatively, he has had a lsight drop from admission levels after surgery and IV fluid administration but will not require any transfusions with his current level. WBAT LLE continue PT and OT for appropriate discharge recommendations we again had a detailed discussion on the harmful effects of smoking on his fracture healing and that he should make all attempts to avoid and at a minimum limit his smoking during the recovery process of his hip multimodal pain regimen Aspirin 81mg BID for DVT PPX appreciate ongoing medical managment by IM, cardiology, and pulmonology patient will follow up with me in two weeks dressings should remain in place until his follow up visit if dressings need to be changed thay may be replaced with dry dressings
--- NOTE | 2024-04-23 23:20 | PN ---
PROGRESS NOTE DATE OF SERVICE: 04/23/2024 CHIEF COMPLAINT: Fracture of the left hip. HISTORY OF PRESENT ILLNESS: This gentleman is doing fairly well. Apparently, [facility]. PHYSICAL EXAMINATION: CHEST: Clear. CARDIAC: Normal. ABDOMEN: Soft, nontender. IMPRESSION: 1. Status post open reduction and internal fixation of left hip fracture. 2. Chronic obstructive pulmonary disease. 3. Coronary artery disease. PLAN: skilled nursing placement today. MMODL / IJN: [id number] /
== END 2024-04-23 17:45 | DRG 481 ==
LOC: EC 13:06 → 4SSUR 16:41
PROVIDERS: ADMIT Orthopaedic Surgery; ATTEND Orthopaedic Surgery
PROC: 0QS736Z Reposition Left Upper Femur with Intramedullary Internal Fixation Device, Percutaneous Approach (ICD-10-PCS; principal; 2024-04-20 08:15)
DX: S72.142A Displaced intertrochanteric fracture of left femur, initial encounter for closed fracture (principal); J96.11 Chronic respiratory failure with hypoxia; J96.12 Chronic respiratory failure with hypercapnia; Z99.81 Dependence on supplemental oxygen; D72.829 Elevated white blood cell count, unspecified; E11.22 Type 2 diabetes mellitus with diabetic chronic kidney disease; E55.9 Vitamin D deficiency, unspecified; J44.9 Chronic obstructive pulmonary disease, unspecified; F19.11 Other psychoactive substance abuse, in remission; E66.9 Obesity, unspecified; I12.9 Hypertensive chronic kidney disease with stage 1 through stage 4 chronic kidney disease, or unspecified chronic kidney disease; F10.11 Alcohol abuse, in remission; N18.9 Chronic kidney disease, unspecified; E78.5 Hyperlipidemia, unspecified; F17.210 Nicotine dependence, cigarettes, uncomplicated; I25.10 Atherosclerotic heart disease of native coronary artery without angina pectoris; G47.33 Obstructive sleep apnea (adult) (pediatric); K21.9 Gastro-esophageal reflux disease without esophagitis; G89.29 Other chronic pain; R53.81 Other malaise; W00.0XXA Fall on same level due to ice and snow, initial encounter; Z68.31 Body mass index [BMI] 31.0-31.9, adult; I25.2 Old myocardial infarction; Y92.480 Sidewalk as the place of occurrence of the external cause; Z79.51 Long term (current) use of inhaled steroids; Z79.899 Other long term (current) drug therapy; Z79.82 Long term (current) use of aspirin; Z95.5 Presence of coronary angioplasty implant and graft
CPT/HCPCS: 71045; 72170; 73502; 80053; 81001; 85025; 93005; 93306; 94640; 94660; 94760; 96372; 96374; 99285

== ENCOUNTER 2024-08-26 12:57 | Inpatient (IN) | payer MEDICARE, OTHER ==
--- NOTE | 2024-08-26 13:15 | ED ---
General Adult HPI - General Chief complaint: Abdominal Pain Stated complaint: ab pain Time Seen by Provider: 08/26/24 12:59 Source: patient, EMS, RN notes reviewed Mode of arrival: EMS Limitations: no limitations - History of Present Illness Initial comments: Patient is a 69-year-old male present to the emergency department with concerns for left-sided pain. Patient had symptoms started last night. Symptoms worsened this morning but he did not want to go to the hospital. Symptoms became somewhat worse sometime in between that. Patient is hesitant to provide history and does appear uncomfortable. Patient states he is also feeling short of breath. Patient feels warm and flushed. Patient states area of discomfort is mostly left lower lateral ribs, more so posterior. - Related Data Home Medications Medication Instructions Recorded Confirmed lisinopriL [Zestril] 10 mg PO HS@199903/13/18 04/18/24 Albuterol Inhaler [Ventolin Hfa 2 puff INHALATION RT-QID PRN 05/25/20 04/18/24 Inhaler] Aspirin EC [Ecotrin Low Dose] 81 mg PO HS@199905/25/20 04/18/24 Atorvastatin Calcium [Lipitor] 40 mg PO HS@199905/25/20 04/18/24 Ergocalciferol [Vitamin D2 (1250 1,250 mcg PO Q30D 04/18/24 04/18/24 Mcg = 82703 Iu)] Fluticasone/Umeclidin/Vilanter 1 puff INHALATION RT-DAILY 04/18/24 04/18/24 [Trelegy Ellipta 100-62.5-25] Tamsulosin [Flomax] 0.4 mg PO HS@199904/18/24 04/18/24 Previous Rx's Medication Instructions Recorded Aspirin [Adult Low Dose Aspirin EC] 81 mg PO BID #1 tab 04/23/24 HYDROcodone/APAP 7.5-325MG [[place] 1 - 2 tab PO Q6HR PRN #32 tab 04/23/24 7.5-325] Ipratropium-Albuterol Nebulize 3 ml INHALATION RT-QID #120 each 04/23/24 [Duoneb 0.5 mg-3 mg/3 ml Soln] Nicotine 14Mg/24Hr Patch [Habitrol] 1 patch TRANSDERM DAILY #30 patch 04/23/24 Sennosides-Docusate Sodium 1 tab PO BID #60 tablet 04/23/24 [Senokot-S] Allergies Allergy/AdvReac Type Severity Reaction Status Date / Time No Known Allergies Allergy Verified 08/26/24 13:08 Review of Systems ROS Statement: Those systems with pertinent positive or pertinent negative responses have been documented in the HPI. ROS Other: All systems not noted in ROS Statement are negative. Constitutional: Denies: fever Eyes: Denies: eye pain ENT: Denies: ear pain Respiratory: Reports: as per HPI, dyspnea Cardiovascular: Reports: as per HPI, chest pain Gastrointestinal: Reports: as per HPI, abdominal pain Musculoskeletal: Reports: as per HPI, back pain Past Medical History Past Medical History: Coronary Artery Disease (CAD), COPD, Hypertension, Myocardial Infarction (UT), Sleep Apnea/CPAP/BIPAP Additional Past Medical History / Comment(s): kidney stones Last Myocardial Infarction Date:: 2008 History of Any Multi-Drug Resistant Organisms: None Reported Past Surgical History: Back Surgery, Orthopedic Surgery Past Anesthesia/Blood Transfusion Reactions: No Reported Reaction Past Psychological History: Depression Smoking Status: Current every day smoker Past Alcohol Use History: None Reported Past Drug Use History: Marijuana General Exam Limitations: no limitations General appearance: alert Head exam: Present: atraumatic Eye exam: Present: normal appearance Neck exam: Present: normal inspection Respiratory exam: Present: normal lung sounds bilaterally, chest wall tenderness (Left lower lateral anterior and posterior ribs.) Cardiovascular Exam: Present: tachycardia Expanded Peripheral pulses: 2+: Radial (R), Radial (L), Posterior Tibialis (R), Posterior Tibialis (L) GI/Abdominal exam: Present: soft, tenderness (Moderate tenderness epigastric and left upper abdomen). Absent: distended Extremities exam: Present: normal inspection. Absent: pedal edema, calf tenderness Back exam: Present: normal inspection. Absent: tenderness, CVA tenderness (L) Neurological exam: Present: alert Psychiatric exam: Present: anxious Skin exam: Present: normal color Course Vital Signs 08/26/24 08/26/24 08/26/24 13:04 13:24 14:30 Temperature 98.8 F Pulse Rate 107 H 109 H 96 Respiratory 16 25 H 18 Rate Blood Pressure 194/111 156/112 143/93 O2 Sat by Pulse 96 97 90 L Oximetry 08/26/24 16:23 Temperature Pulse Rate 87 Respiratory 19 Rate Blood Pressure 148/73 O2 Sat by Pulse 95 Oximetry EKG Findings - EKG Results: EKG: interpreted by FADUMOD (Right axis. Low QRS voltage. Nonspecific ST-T.), sinus rhythm EKG shows: tachycardia Medical Decision Making - Medical Decision Making radiology was called to have x-ray done stat tool and die technician called to have CT scan done. Unable to do originally secondary to patient still having discomfort. Patient provided additional pain medication. Was pt. sent in by a medical professional or institution (, PA, METAL CEILING BUILDER, urgent care, hospital, or correction...) When possible be specific @ -No Did you speak to anyone other than the patient for history (EMS, parent, family, police, friend...)? What history was obtained from this source @ -No Did you review nursing and triage notes (agree or disagree)? Why? @ -I reviewed and agree with nursing and triage notes Were old charts reviewed (outside hosp., previous admission, EMS record, old EKG, old radiological studies, urgent care reports/EKG's, correction records)? Report findings @ -No old charts were reviewed Differential Diagnosis (chest pain, altered mental status, abdominal pain women, abdominal pain men, vaginal bleeding, weakness, fever, dyspnea, syncope, headache, dizziness, GI bleed, back pain, seizure, CVA, palpatations, mental health, musculoskeletal)? @ -Differential Chest Pain: Stable Angina, Unstable Angina, STEMI, NSTEMI Aortic Dissection, Pneumothorax, Musculoskeletal, Esophageal Spasm GERD, Cholecystitis, Pancreatitis, Zoster, this is not meant to be an all-inclusive list. Differential Abdominal Pain Men: Appendicitis, cholecystitis, diverticulosis, ischemic bowel, pancreatitis, hepatitis, UTI, gastroenteritis, AAA, incarcerated hernia, bowel obstruction, constipation, inflammatory bowel, hepatitis, peptic ulcer disease, splenic infarction, perforated viscus, testicular torsion, this is not meant to be an all-inclusive list EKG interpreted by me (3pts min.). @ -As above X-rays interpreted by me (1pt min.). @ -Chest x-ray without acute abnormality CT interpreted by me (1pt min.). @ -CT scan chest abdomen pelvis shows staghorn calculi in the left U/S interpreted by me (1pt. min.). @ -None done What testing was considered but not performed or refused? (CT, X-rays, U/S, labs)? Why? @ -None What meds were considered but not given or refused? Why? @ -None Did you discuss the management of the patient with other professionals (professionals i.e. , PA, METAL CEILING BUILDER, lab, RT, psych nurse, social media campaign manager, rivet hammer machine operator, teacher, geographic area intelligence officer, case resolution specialist)? Give summary @ -Dr. Neff for admission of his patient Urology Dr. Hay who will consult Was smoking cessation discussed for >3mins.? @ -No Was critical care preformed (if so, how long)? @ -No Were there social determinants of health that impacted care today? How? (Homelessness, low income, unemployed, alcoholism, drug addiction, transportation, low edu. Level, literacy, decrease access to med. care, snf, rehab)? @ -No Was there de-escalation of care discussed even if they declined (Discuss DNR or withdrawal of care, Hospice)? DNR status @ -No What co-morbidities impacted this encounter? (DM, HTN, Smoking, COPD, CAD, Cancer, CVA, ARF, Chemo, Hep., AIDS, mental health diagnosis, sleep apnea, morbid obesity)? @ -None Was patient admitted / discharged? Hospital course, mention meds given and route, prescriptions, significant lab abnormalities, going to OR and other pertinent info. @ -Patient presents with sudden severe discomfort chest abdomen on the left. Patient does have staghorn calculi. Case was discussed with urology who question whether or not this may be the cause of his symptoms and agrees patient should be admitted with cardiac consult as well. Patient reevaluated and updated. Admission orders written. Blood pressure has improved. Undiagnosed new problem with uncertain prognosis? @ -No Drug Therapy requiring intensive monitoring for toxicity (Heparin, Nitro, Insulin, Cardizem)? @ -No Were any procedures done? @ -No Diagnosis/symptom? @ -Chest pain, abdominal pain Acute, or Chronic, or Acute on Chronic? @ -Acute, acute Uncomplicated (without systemic symptoms) or Complicated (systemic symptoms)? @ -Default Side effects of treatment? @ -No Exacerbation, Progression, or Severe Exacerbation? @ -No Poses a threat to life or bodily function? How? (Chest pain, [place], [place], pneumonia, PE, COPD, DKA, ARF, appy, cholecystitis, CVA, Diverticulitis, Homicidal, Suicidal, threat to staff... and all critical care pts) @ -No - Lab Data Result diagrams: 08/26/24 13:16 08/26/24 13:16 Lab Results 08/26/24 08/26/24 08/26/24 Range/Units 13:16 13:16 13:16 WBC 12.69 H (4.50-10.00) 10*3/uL RBC 5.44 (4.40-5.60) 10*6/uL Hgb 17.6 H (13.0-17.0) g/dL Hct 51.9 H (39.6-50.0) % MCV 95.4 (80.0-97.0) fL MCH 32.4 H (27.0-32.0) pg MCHC 33.9 (32.0-37.0) g/dL Plt Count 233 (140-440) 10*3/uL MPV 9.6 (9.5-12.2) fL Immature Gran % (Auto) 0.4 % Neutrophils % 79.0 % Lymphocytes % 11.7 % Monocytes % 6.7 % Eosinophils % 2.0 % Basophils % 0.2 % Immature Gran # 0.05 H (0.00-0.04) 10*3/uL Neutrophils # 10.01 H (1.80-7.70) 10*3/uL Lymphocytes # 1.49 (0.90-5.00) 10*3/uL Monocytes # 0.85 (0.20-1.00) 10*3/uL Eosinophils # 0.26 (0.04-0.35) 10*3/uL Basophils # 0.03 (0.00-0.10) 10*3/uL PT 11.7 (10.0-12.5) sec INR 1.1 (<1.2) APTT 23.5 (22.0-30.0) sec Sodium 140 (137-145) mmol/L Potassium 4.1 (3.5-5.1) mmol/L Chloride 104 (98-107) mmol/L Carbon Dioxide 22 (22-30) mmol/L Anion Gap 14 mmol/L BUN 17 (9-20) mg/dL Creatinine 1.03 (0.66-1.25) mg/dL Est GFR (CKD-EPI)AfAm 87 (>60 ml/min/1.73 sqM) Est GFR (CKD-EPI)NonAf 75 (>60 ml/min/1.73 sqM) Glucose 138 H (74-99) mg/dL Calcium 9.5 (8.4-10.2) mg/dL Total Bilirubin 1.6 H (0.2-1.3) mg/dL AST 18 (17-59) U/L ALT 13 (4-49) U/L Alkaline Phosphatase 131 H (38-126) U/L Troponin I (0.000-0.034) ng/mL Total Protein 7.7 (6.3-8.2) g/dL Albumin 4.5 (3.5-5.0) g/dL Amylase 91 (30-110) U/L Lipase 117 (23-300) U/L 08/26/24 Range/Units 13:16 WBC (4.50-10.00) 10*3/uL RBC (4.40-5.60) 10*6/uL Hgb (13.0-17.0) g/dL Hct (39.6-50.0) % MCV (80.0-97.0) fL MCH (27.0-32.0) pg MCHC (32.0-37.0) g/dL Plt Count (140-440) 10*3/uL MPV (9.5-12.2) fL Immature Gran % (Auto) % Neutrophils % % Lymphocytes % % Monocytes % % Eosinophils % % Basophils % % Immature Gran # (0.00-0.04) 10*3/uL Neutrophils # (1.80-7.70) 10*3/uL Lymphocytes # (0.90-5.00) 10*3/uL Monocytes # (0.20-1.00) 10*3/uL Eosinophils # (0.04-0.35) 10*3/uL Basophils # (0.00-0.10) 10*3/uL PT (10.0-12.5) sec INR (<1.2) APTT (22.0-30.0) sec Sodium (137-145) mmol/L Potassium (3.5-5.1) mmol/L Chloride (98-107) mmol/L Carbon Dioxide (22-30) mmol/L Anion Gap mmol/L BUN (9-20) mg/dL Creatinine (0.66-1.25) mg/dL Est GFR (CKD-EPI)AfAm (>60 ml/min/1.73 sqM) Est GFR (CKD-EPI)NonAf (>60 ml/min/1.73 sqM) Glucose (74-99) mg/dL Calcium (8.4-10.2) mg/dL Total Bilirubin (0.2-1.3) mg/dL AST (17-59) U/L ALT (4-49) U/L Alkaline Phosphatase (38-126) U/L Troponin I <0.012 (0.000-0.034) ng/mL Total Protein (6.3-8.2) g/dL Albumin (3.5-5.0) g/dL Amylase (30-110) U/L Lipase (23-300) U/L Disposition Clinical Impression: Chest pain Disposition: ADMITTED IP TO THIS [facility] Is patient prescribed a controlled substance at d/c from ED?: No Referrals: Dayton Neff MD [Primary Care Provider] - 1-2 days Time of Disposition: 16:40
[2024-08-26] MEDS: HYDROmorphone 1 MG/ML 1 ML SYRINGE IVP STA ×2 (13:19→14:34)
[2024-08-26 13:26] LABS: Basophils # (A) 0.03 10*3/uL (0.00-0.10); Basophils % (A) 0.2 %; Eosinophils # (A) 0.26 10*3/uL (0.04-0.35); Eosinophils % (A) 2.0 %; HCT 51.9 % (39.6-50.0); HGB 17.6 g/dL (13.0-17.0); Lymphocytes # (A) 1.49 10*3/uL (0.90-5.00); Lymphocytes % (A) 11.7 %; MCH 32.4 pg (27.0-32.0); MCHC 33.9 g/dL (32.0-37.0); MCV 95.4 fL (80.0-97.0); Monocytes # (A) 0.85 10*3/uL (0.20-1.00); Monocytes % (A) 6.7 %; Neutrophils # (A) 10.01 10*3/uL (1.80-7.70); Neutrophils % (A) 79.0 %; Platelet Count 233 10*3/uL (140-440); RBC 5.44 10*6/uL (4.40-5.60); RDW 13.1 % (11.5-14.5); WBC 12.69 10*3/uL (4.50-10.00)
[2024-08-26 13:39] LABS: ALT 13 U/L (4-49); AST 18 U/L (17-59); African American GFR (CKD) 87 (>60 ml/min/1.73 sqM); Albumin 4.5 g/dL (3.5-5.0); Alkaline Phosphatase 131 U/L (38-126); Amylase 91 U/L (30-110); Anion Gap 14 mmol/L; Blood Urea Nitrogen 17 mg/dL (9-20); Calcium 9.5 mg/dL (8.4-10.2); Carbon Dioxide 22 mmol/L (22-30); Chloride 104 mmol/L (98-107); Glucose 138 mg/dL (74-99); Lipase 117 U/L (23-300); Non-African American GFR(CKD) 75 (>60 ml/min/1.73 sqM); Potassium 4.1 mmol/L (3.5-5.1); Sodium 140 mmol/L (137-145); Total Protein 7.7 g/dL (6.3-8.2)
--- NOTE | 2024-08-26 13:55 | XR ---
That EXAMINATION TYPE: XR chest 1V portable DATE OF EXAM: 08/26/2024 1:42 PM COMPARISON: 04/18/2024 CLINICAL INDICATION: Male, 69 years old with history of abdominal pain, TECHNIQUE: XR chest 1V portable views of the chest are obtained. FINDINGS: Demonstrated are scattered senescent parenchymal change. Coarse opacities are seen throughout both lung vences which may be related to fibrosis versus interst itial pneumonia of uncertain etiology. The heart is stable. Hilar and mediastinal structures are within normal limits. Degenerative changes are seen of the dorsal spine. IMPRESSION: 1. Coarse opacities are seen throughout both lung vences which may be related to fibrosis versus int erstitial pneumonia of uncertain etiology. [facility], , 08/26/2024 1:52 PM
[2024-08-26 14:00] LABS: INR 1.1 (<1.2); Partial Thromboplastin Time 23.5 sec (22.0-30.0); Prothrombin Time 11.7 sec (10.0-12.5)
[2024-08-26] MEDS: SODIUM CHLORIDE 0.9% 1,000 ML IV SCH (14:33)
--- NOTE | 2024-08-26 15:01 | CT ---
CTA, chest abdomen and pelvis HISTORY: Left-sided pain. COMPARISON: CT abdomen pelvis dated 05/30/2020 TECHNIQUE: Multiple axial images are obtained through the chest, abdomen and pelvis before and after IV contrast administration. FINDINGS: CHEST: There are scattered pleural parenchymal changes in the lungs and mild emphysematous changes. There is no suspicious lung mass or nodule. There is no airspace consolidation. There is no pneumothorax. The great vessels the chest are normal and there is no aneurysm or dissection. There is no definite mediastinal, hilar or axillary adenopathy . Abdomen and pelvis: There is surgical absence of the gallbladder. There is no focal mass or organomegaly involving the liver, pancreas, spleen or adrenal glands. The a drenal glands are mildly nodular. There is a large and increasing left staghorn calculus. There is no right renal calculus. There is a stable 3.3 cm infrarenal distal abdominal aortic aneurysm just proximal to the aortic bifu rcation. There is no retroperitoneal adenopathy. Bowel loops are normal in caliber and there is no evidence of obstruction. There is moderate prostatic hypertrophy. There is no pelvic adenopathy or abscess. There are postsurgical changes in the left hip otherwise the osseous structures are grossly intact. T here is severe spinal stenosis at the L4-5 level. IMPRESSION: 1. No thoracic aortic aneurysm or dissection. 2. Increasing large left staghorn calculus. 3. Stable 3.3 cm distal abdominal aortic aneurysm. 4. Severe spinal stenosis L4-5 level. 5. Moderate prostatic hypertrophy. [facility], , 08/26/2024 2:59 PM
[2024-08-26] MEDS ORDERED: NITROGLYCERIN SL TABS 0.4 MG TAB SUBLINGUAL PRN (16:40)
[2024-08-26] MEDS: ASPIRIN 81 MG PO STA (17:12)
[2024-08-26 17:15] LABS: Color,Urine Yellow; PH, Urine 6.0 (5.0-8.0); Protein,Urine Trace (Negative)
[2024-08-26 17:16] LABS: Bilirubin,Urine Negative (Negative); Blood,Urine Moderate (Negative); Calcium Oxalate Crystals,Urine Rare /hpf; Glucose,Urine (UA) Negative (Negative); Ketones,Urine 1+ (Negative); Leukocyte Esterase,Urine Negative (Negative); Mucus,Urine Moderate /hpf; Nitrite,Urine Negative (Negative); RBC,Urine 23 /hpf (0-5); Squamous Epithelial Cell,Urine <1 /hpf (0-4); Urobilinogen,Urine <2.0 mg/dL (<2.0); WBC,Urine 4 /hpf (0-5)
[2024-08-26 17:17] LABS: Specific Gravity,Urine >1.050 (1.001-1.035)
[2024-08-26] MEDS: ONDANSETRON 4 MG/2 ML VIAL IVP PRN (17:42)
--- NOTE | 2024-08-26 17:53 | P.GSCN ---
History of Present Illness Consult date: 08/26/24 Reason for Consult: Left renal stone History of present illness: This is a 69-year-old male presents to the hospital with left-sided chest pain with radiation to the left flank. Indicate pain has been associated for 1 day. Denies any dysuria or gross hematuria nausea or vomiting. Does have history of kidney stones, requiring left-sided ureteroscopy with holmium laser by Dr. Lola santos in 2020. He indicates pains does not feel similar to his previous kidney stones. In the ER he underwent a CT abdomen and pelvis that showed evidence of a staghorn calculi, there was no hydronephrosis or any stranding around the kidney. Patient did have a partial staghorn back in 2020 but has progressed to a full staghorn at this time. His urinalysis only significant for blood. Review of Systems - Constitutional Denies fever, Denies weight loss - EENT Ears, nose, mouth and throat: Denies dysphagia - Cardiovascular Reports chest pain, Reports shortness of breath - Respiratory Reports dyspnea - Gastrointestinal Reports abdominal pain - Genitourinary Reports flank pain - Integumentary Denies rash, Denies unusual bruising - Neurological Denies headaches, Denies syncope Past Medical History Past Medical History: Coronary Artery Disease (CAD), COPD, Hypertension, Myocardial Infarction ([place]), Sleep Apnea/CPAP/BIPAP Additional Past Medical History / Comment(s): kidney stones Last Myocardial Infarction Date:: 2008 History of Any Multi-Drug Resistant Organisms: None Reported Past Surgical History: Back Surgery, Orthopedic Surgery Past Anesthesia/Blood Transfusion Reactions: No Reported Reaction Past Psychological History: Depression Smoking Status: Current every day smoker Past Alcohol Use History: None Reported Past Drug Use History: Marijuana Medications and Allergies Home Medications Medication Instructions Recorded Confirmed Type lisinopriL [Zestril] 10 mg PO HS@199903/13/18 08/26/24 History Albuterol Inhaler [Ventolin Hfa 2 puff INHALATION RT-QID PRN 05/25/20 08/26/24 History Inhaler] Aspirin EC [Ecotrin Low Dose] 81 mg PO HS@199905/25/20 08/26/24 History Atorvastatin Calcium [Lipitor] 40 mg PO HS@199905/25/20 08/26/24 History Ergocalciferol [Vitamin D2 (1250 1,250 mcg PO Q30D 04/18/24 08/26/24 History Mcg = 92457 Iu)] Fluticasone/Umeclidin/Vilanter 1 puff INHALATION RT-DAILY 04/18/24 08/26/24 History [Trelegy Ellipta 100-62.5-25] Tamsulosin [Flomax] 0.4 mg PO HS@2000 04/18/24 08/26/24 History Ipratropium-Albuterol Nebulize 3 ml INHALATION RT-QID #120 each 04/23/24 08/26/24 Rx [Duoneb 0.5 mg-3 mg/3 ml Soln] Allergies Allergy/AdvReac Type Severity Reaction Status Date / Time No Known Allergies Allergy Verified 08/26/24 16:57 Surgical - Exam Vital Signs Temp Pulse Resp BP Pulse Ox 98.8 F 107 H 16 194/111 96 08/26/24 13:04 08/26/24 13:04 08/26/24 13:04 08/26/24 13:04 08/26/24 13:04 - General moderate distress, severe pain - Eyes normal ocular movement, no pale - Respiratory Labored breathing normal chest expansion - Abdomen Abdomen: soft, tender (Left flank) - Psychiatric oriented to time, oriented to person, oriented to place Results - Labs 08/26/24 13:16 08/26/24 13:16 Abnormal Lab Results - Last 24 Hours (Table) 08/26/24 08/26/24 08/26/24 Range/Units 13:16 13:16 16:27 WBC 12.69 H (4.50-10.00) 10*3/uL Hgb 17.6 H (13.0-17.0) g/dL Hct 51.9 H (39.6-50.0) % MCH 32.4 H (27.0-32.0) pg Immature Gran # 0.05 H (0.00-0.04) 10*3/uL Neutrophils # 10.01 H (1.80-7.70) 10*3/uL Glucose 138 H (74-99) mg/dL Total Bilirubin 1.6 H (0.2-1.3) mg/dL Alkaline Phosphatase 131 H (38-126) U/L Ur Specific [place] >1.050 H (1.001-1.035) Urine Protein Trace H (Negative) Urine Ketones 1+ H (Negative) Urine Blood Moderate H (Negative) Urine RBC 23 H (0-5) /hpf Calcium Oxalate Crystal Rare H (None) /hpf Urine Mucus Moderate H (None) /hpf Diabetes panel 08/26/24 Range/Units 13:16 Sodium 140 (137-145) mmol/L Potassium 4.1 (3.5-5.1) mmol/L Chloride 104 (98-107) mmol/L Carbon Dioxide 22 (22-30) mmol/L BUN 17 (9-20) mg/dL Creatinine 1.03 (0.66-1.25) mg/dL Glucose 138 H (74-99) mg/dL Calcium 9.5 (8.4-10.2) mg/dL AST 18 (17-59) U/L ALT 13 (4-49) U/L Alkaline Phosphatase 131 H (38-126) U/L Total Protein 7.7 (6.3-8.2) g/dL Albumin 4.5 (3.5-5.0) g/dL Calcium panel 08/26/24 Range/Units 13:16 Calcium 9.5 (8.4-10.2) mg/dL Albumin 4.5 (3.5-5.0) g/dL Pituitary panel 08/26/24 Range/Units 13:16 Sodium 140 (137-145) mmol/L Potassium 4.1 (3.5-5.1) mmol/L Chloride 104 (98-107) mmol/L Carbon Dioxide 22 (22-30) mmol/L BUN 17 (9-20) mg/dL Creatinine 1.03 (0.66-1.25) mg/dL Glucose 138 H (74-99) mg/dL Calcium 9.5 (8.4-10.2) mg/dL Adrenal panel 08/26/24 Range/Units 13:16 Sodium 140 (137-145) mmol/L Potassium 4.1 (3.5-5.1) mmol/L Chloride 104 (98-107) mmol/L Carbon Dioxide 22 (22-30) mmol/L BUN 17 (9-20) mg/dL Creatinine 1.03 (0.66-1.25) mg/dL Glucose 138 H (74-99) mg/dL Calcium 9.5 (8.4-10.2) mg/dL Total Bilirubin 1.6 H (0.2-1.3) mg/dL AST 18 (17-59) U/L ALT 13 (4-49) U/L Alkaline Phosphatase 131 H (38-126) U/L Total Protein 7.7 (6.3-8.2) g/dL Albumin 4.5 (3.5-5.0) g/dL Assessment and Plan Assessment: 69-year-old male with history of left-sided staghorn calculi, having abdominal pain, and chest pain. His pain is atypical for a kidney stone. Kidney stone should not cause his chest pain, additionally no hydronephrosis or stranding appreciated on the CT. I would recommend evaluating other etiologies for that, it could be causing some of his abdominal left-sided flank pain. No acute bland rgical intervention from urology standpoint. I did discuss with him given the size of the stone and it is a staghorn calculi he will require outpatient left- sided PCNL. But at this point I recommend further evaluation of his chest pain by the primary service.
--- NOTE | 2024-08-26 19:39 | HP ---
HISTORY AND PHYSICAL CHIEF COMPLAINT: Left chest and left upper quadrant pain. HISTORY OF PRESENT ILLNESS: This gentleman came to the emergency room with a complaint of full left anterior chest and left upper quadrant pain. In the emergency room, all of his studies were unremarkable. The only abnormality was a staghorn calculus in the left kidney. It was not felt that this was likely a cause of the pain. REVIEW OF SYSTEMS: Otherwise unremarkable. There is no history of nausea, vomiting, hematemesis, melena, hematochezia, hematuria, dysuria, fever and chills, etc. Past medical history, family history and personal and social histories are unremarkable except for a history of hypertension, GERD, COPD, CKD and type 2 diabetes. MEDICATIONS: His usual medications include; 1. Atorvastatin 40 mg once a day. 2. Tamsulosin 0.4 once a day. 3. Lisinopril 10 mg once a day. 4. Trelegy inhaler one puff once a day. 5. Ventolin HFA 2 puffs q.i.d. 6. Aspirin once a day. ALLERGIES: He is allergic to Pulmicort. SOCIAL HISTORY: He does smoke. PHYSICAL EXAMINATION: VITAL SIGNS: Normal. HEAD, EARS, EYES, NOSE, MOUTH, THROAT: Normal. CHEST: Clear. CARDIAC: Normal. ABDOMEN: Soft and nontender without any masses or visceromegaly. Bowel sounds are present. EXTREMITIES: Normal. NEUROLOGICAL: He is intact. IMPRESSION: 1. Left-sided chest and left upper quadrant pain. 2. History of hypertension. 3. History of chronic obstructive pulmonary disease. 4. History of type 2 diabetes. 5. History of hyperlipidemia. PLAN: 1. Bedrest. 2. IV fluids. 3. Continue workup for his pain. MMODL / IJN: [id number] /
[2024-08-26] MEDS ORDERED: ALBUTEROL NEBULIZED 2.5 MG/3 ML INHALATION PRN (19:51)
[2024-08-26] MEDS ORDERED: ASPIRIN 81 MG PO SCH (20:00)
[2024-08-26] MEDS: TAMSULOSIN 0.4 MG CAP.ER.24H PO SCH (21:15)
[2024-08-26] MEDS: ATORVASTATIN 40 MG TAB PO SCH (21:15)
[2024-08-26] MEDS: HYDROmorphone 1 MG/ML 1 ML SYRINGE IVP PRN (21:19)
[2024-08-26] MEDS: ERGOCALCIFEROL 1,250 MCG (50,000 IU) CAPSULE PO SCH (21:23)
[2024-08-27] MEDS: IPRATROPIUM-ALBUTEROL 3 ML NEB INHALATION SCH ×2 (00:22→10:56)
[2024-08-27] MEDS ORDERED: IPRATROPIUM-ALBUTEROL 3 ML NEB INHALATION PRN (09:00)
[2024-08-27] MEDS: ASPIRIN 325 MG TAB PO SCH (09:35)
[2024-08-27] MEDS: SYMBICORT 160-4.5 MCG INHALER INHALATION SCH (10:56)
[2024-08-27] MEDS: TIOTROPIUM 2.5 MCG INHALER INHALATION SCH (10:56)
--- NOTE | 2024-08-27 12:12 | P.CRDCN ---
History of Present Illness History of present illness: HISTORY OF PRESENT ILLNESS: This is a 69-year-old male with a past medical history significant for hypertension and hyperlipidemia. 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 We have been asked to see the patient in consultation for chest pain. Patient examined at the bedside. Patient is a poor historian. He reports that he came to the hospital due to shortness of breath. He also reports left-sided chest pain. He states the pain is only occurring when he takes a deep breath. He states the pain has been coming and going for a few months. Per nursing, patient was found to be hypoxic on room air this morning. DIAGNOSTICS: - EKG reveals sinus tachycardia with ST depression in V3V6. Baseline artifact.. - Chest xray coarse opacity seen throughout both lung vences which may be related to fibrosis versus interstitial pneumonia - Laboratory data: WBC 12.69. Hemoglobin 17.6. Platelet count 233. Sodium 140. Potassium 4.1. BUN 17. Creatinine 1.03. Troponin negative x 3 - Current home cardiac medications include lisinopril 10 mg daily, atorvastatin 40 mg daily, aspirin 81 mg daily. - Most recent echocardiogram obtained in March 2024 revealed ejection fraction 55 to 60%, no obvious regional wall motion abnormalities, valves not well-visualized - Cardiac catheterization history: Patient denies REVIEW OF SYSTEMS: At the time of my exam: CONSTITUTIONAL: Denies fever or chills. HEENT: Denies blurred vision, vision changes, or eye pain. Denies hemoptysis CARDIOVASCULAR: Denies chest pain. Denies orthopnea. Denies PND. Denies palpitations RESPIRATORY: + shortness of breath. GASTROINTESTINAL: Denies abdominal pain. Denies nausea or vomiting. HEMATOLOGIC: Denies bleeding disorders. GENITOURINARY: Denies any blood in urine. SKIN: Denies pruitis. Denies rash. PHYSICAL EXAM: VITAL SIGNS: Reviewed. GENERAL: Well-developed in no acute distress. HEENT: Head is normocephalic. Pupils are equal, round. Sclerae anicteric. Mucous membranes of the mouth are moist. Neck supple. No JVD or thyromegaly LUNGS: Respirations even and unlabored. Lungs essentially clear to auscultation bilaterally. HEART: Regular rate and rhythm. S1 and S2 heard. ABDOMEN: Soft. Nondistended. Nontender. EXTREMITIES: Normal range of motion. No clubbing or cyanosis. Peripheral pulses intact. No lower extremity edema NEUROLOGIC: Awake and alert. Oriented x 3. ASSESSMENT: Chest pain, pleuritic troponin negative x 3, ACS ruled out Shortness of breath Severe COPD Nicotine dependence Physical debility, patient uses motorized wheelchair Hypertension Hyperlipidemia Obstructive sleep apnea History of intertrochanteric fracture, 03/2024 Nicotine dependence PLAN: An acute coronary event has been ruled out Obtain D-dimer Obtain 2D echo to assess cardiac structure and function Resume home cardiac medications Consult pulmonary for shortness of breath If 2D echo is unremarkable, no further inpatient recommendations from a cardiac standpoint Nurse practitioner note has been reviewed by physician. Signing provider agrees with the documented findings, assessment, and plan of care documented by ROUND KILN DRAWER as a scribe. Past Medical History Past Medical History: Coronary Artery Disease (CAD), COPD, Hypertension, Myocardial Infarction ([place]), Sleep Apnea/CPAP/BIPAP Additional Past Medical History / Comment(s): kidney stones Last Myocardial Infarction Date:: 2008 History of Any Multi-Drug Resistant Organisms: None Reported Past Surgical History: Back Surgery, Orthopedic Surgery Past Anesthesia/Blood Transfusion Reactions: No Reported Reaction Past Psychological History: Depression Smoking Status: Current every day smoker Past Alcohol Use History: None Reported Past Drug Use History: Marijuana Medications and Allergies Home Medications Medication Instructions Recorded Confirmed Type lisinopriL [Zestril] 10 mg PO HS@199903/13/18 08/26/24 History Albuterol Inhaler [Ventolin Hfa 2 puff INHALATION RT-QID PRN 05/25/20 08/26/24 History Inhaler] Aspirin EC [Ecotrin Low Dose] 81 mg PO HS@199905/25/20 08/26/24 History Atorvastatin Calcium [Lipitor] 40 mg PO HS@199905/25/20 08/26/24 History Ergocalciferol [Vitamin D2 (1250 1,250 mcg PO Q30D 04/18/24 08/26/24 History Mcg = 22591 Iu)] Fluticasone/Umeclidin/Vilanter 1 puff INHALATION RT-DAILY 04/18/24 08/26/24 History [Trelegy Ellipta 100-62.5-25] Tamsulosin [Flomax] 0.4 mg PO HS@199904/18/24 08/26/24 History Ipratropium-Albuterol Nebulize 3 ml INHALATION RT-QID #120 each 04/23/24 08/26/24 Rx [Duoneb 0.5 mg-3 mg/3 ml Soln] Allergies Allergy/AdvReac Type Severity Reaction Status Date / Time No Known Allergies Allergy Verified 08/26/24 16:57 Physical Exam Vitals: Vital Signs Temp Pulse Pulse Resp BP BP Pulse Ox 08/27/24 07:00 98.2 F 73 15 139/70 86 L 08/27/24 04:41 94 L 08/27/24 02:00 98.2 F 66 16 118/60 89 L 08/26/24 22:38 98.4 F 72 14 156/93 89 L 08/26/24 21:26 77 20 128/80 95 08/26/24 18:45 99 18 124/67 95 08/26/24 16:23 87 19 148/73 95 08/26/24 14:30 96 18 143/93 90 L 08/26/24 13:24 109 H 25 H 156/112 97 08/26/24 13:04 98.8 F 107 H 16 194/111 96 Intake and Output 08/26/24 08/27/24 08/27/24 22:59 06:59 14:59 Other: Voiding Method Urinal Urinal Weight 108.862 kg Results 08/26/24 13:16 08/26/24 13:16 Cardiac Enzymes 08/26/24 08/26/24 08/26/24 Range/Units 13:16 13:16 16:53 AST 18 (17-59) U/L Troponin I <0.012 <0.012 (0.000-0.034) ng/mL 08/26/24 Range/Units 20:48 AST (17-59) U/L Troponin I <0.012 (0.000-0.034) ng/mL Coagulation 08/26/24 Range/Units 13:16 PT 11.7 (10.0-12.5) sec APTT 23.5 (22.0-30.0) sec CBC 08/26/24 Range/Units 13:16 WBC 12.69 H (4.50-10.00) 10*3/uL RBC 5.44 (4.40-5.60) 10*6/uL Hgb 17.6 H (13.0-17.0) g/dL Hct 51.9 H (39.6-50.0) % Plt Count 233 (140-440) 10*3/uL Comprehensive Metabolic Panel 08/26/24 Range/Units 13:16 Sodium 140 (137-145) mmol/L Potassium 4.1 (3.5-5.1) mmol/L Chloride 104 (98-107) mmol/L Carbon Dioxide 22 (22-30) mmol/L BUN 17 (9-20) mg/dL Creatinine 1.03 (0.66-1.25) mg/dL Glucose 138 H (74-99) mg/dL Calcium 9.5 (8.4-10.2) mg/dL AST 18 (17-59) U/L ALT 13 (4-49) U/L Alkaline Phosphatase 131 H (38-126) U/L Total Protein 7.7 (6.3-8.2) g/dL Albumin 4.5 (3.5-5.0) g/dL Current Medications Generic Name Dose Route Start Last Admin Trade Name Freq PRN Reason Stop Dose Admin Albuterol Sulfate 2.5 mg 08/26/24 19:51 Albuterol Nebulized 2.5 Mg/3 Ml INHALATION RT-QID PRN Shortness Of Breath Albuterol/Ipratropium 3 ml 08/27/24 09:00 Ipratropium-Albuterol 3 Ml Neb INHALATION RT-QID PRN Shortness Of Breath Aspirin 325 mg 08/27/24 09:00 08/27/24 09:35 Aspirin 325 Mg Tab PO Not Given DAILY [facility] Atorvastatin Calcium 40 mg 08/26/24 20:00 08/26/24 21:15 Atorvastatin 40 Mg Tab PO 40 mg HS@2000 DIANA Administration Budesonide/Formoterol Fumarate 2 puff 08/27/24 08:00 Symbicort 160-4.5 Mcg Inhaler INHALATION RT-BID DIANA Ergocalciferol 1,250 mcg 08/26/24 21:00 08/26/24 21:23 Ergocalciferol 1,250 Mcg (50,000 Iu) Capsule PO 1,250 mcg Q30D DIANA Administration Hydromorphone HCl 1 mg 08/26/24 17:16 08/27/24 10:01 Hydromorphone 1 Mg/Ml 1 Ml Syringe IVP 1 mg Q4HR PRN Administration Pain Sodium Chloride 1,000 mls @ 130 mls/hr 08/26/24 13:15 08/27/24 05:52 Saline 0.9% IV 130 mls/hr .[id number] DIANA Administration Lisinopril 10 mg 08/26/24 20:00 08/26/24 21:15 Lisinopril 10 Mg Tab PO 10 mg HS@2000 DIANA Administration Nitroglycerin 0.4 mg 08/26/24 16:40 Nitroglycerin Sl Tabs 0.4 Mg Tab SUBLINGUAL Q5M PRN Chest Pain Ondansetron HCl 4 mg 08/26/24 17:16 08/27/24 10:07 Ondansetron 4 Mg/2 Ml Vial IVP 4 mg Q6HR PRN Administration Nausea And Vomiting Tamsulosin HCl 0.4 mg 08/26/24 20:00 08/26/24 21:15 Tamsulosin 0.4 Mg Cap.Er.24h PO 0.4 mg HS@1999 DIANA Administration Tiotropium [place]ell 2 puff 08/27/24 08:00 Tiotropium 2.5 Mcg Inhaler INHALATION RT-DAILY DIANA Intake and Output 08/26/24 08/27/24 08/27/24 22:59 06:59 14:59 Other: Voiding Method Urinal Urinal Weight 108.862 kg 08/26/24 13:16 08/26/24 13:16
[2024-08-27] MEDS ORDERED: ACETAMINOPHEN TAB 325 MG TAB PO PRN (12:44)
[2024-08-27 13:32] LABS: African American GFR (CKD) >90 (>60 ml/min/1.73 sqM); Anion Gap 10 mmol/L; Blood Urea Nitrogen 19 mg/dL (9-20); Calcium 9.4 mg/dL (8.4-10.2); Carbon Dioxide 24 mmol/L (22-30); Chloride 105 mmol/L (98-107); Glucose 100 mg/dL (74-99); Non-African American GFR(CKD) 89 (>60 ml/min/1.73 sqM); Sodium 139 mmol/L (137-145)
[2024-08-27] MEDS: NICOTINE 21MG/24HR PATCH TRANSDERM SCH (13:32)
[2024-08-27 13:40] LABS: NT-Pro-B-Type Natriuretic Pept 668 pg/mL
[2024-08-27 13:48] LABS: Potassium 4.7 mmol/L (3.5-5.1)
[2024-08-27 15:27] LABS: Cholesterol 115.00 mg/dL (0.00-200.00); HDL Cholesterol 47.20 mg/dL (40.00-60.00); LDL Cholesterol,Calculated 55.2 mg/dL (0.0-131.0); Triglycerides 62.80 mg/dL (0.00-149.00); VLDL Calculation 12.56 mg/dL (5.00-40.00)
--- NOTE | 2024-08-27 17:22 | CT ---
EXAMINATION TYPE: CT angio chest CT DLP: 619.2 mGycm, Automated exposure control for dose reduction was used. DATE OF EXAM: 08/27/2024 5:03 PM COMPARISON: CTA thoracoabdominal pelvis aorta 08/26/2024 CLINICAL INDICATION:Male, 69 years old with history of elevated D DIME, SOB; elevated d-dimer TECHNIQUE/CONTRAST: CTA scan of the thorax is performed with IV Contrast, patient injected with 100 mL of Isovue 370, pul monary embolism protocol. MIP images are created and reviewed. FINDINGS: Pulmonary Artery: There are filling defects identified within the right middle lobe, right lower lobe , left upper lobe and left lower lobe segmental pulmonary arteries. Pulmonary artery is of normal siz e. Lungs/Pleura: No pneumothorax. Small left pleural effusion with adjacent consolidation/atelectasis. T race scattered regions of subsegmental atelectasis/subpleural fibrosis. No suspicious pulmonary nodul e or mass identified. Airway: Large airways are patent. Heart: Cardiomegaly is demonstrated.Trace pericardial effusion. No significant coronary artery calcif ications. No flattening of the interventricular septum. Vasculature: No evidence of aortic aneurysm. Mediastinum: No evidence of adenopathy. Musculoskeletal: No acute osseous abnormalities . Right AC joint arthropathy. Soft Tissues: Unremarkable. Lower neck: No significant findings. Upper Abdomen: The gallbladder is surgically absent. Small hiatal hernia suggested. IMPRESSION: 1. Several scattered bilateral subsegmental pulmonary emboli. No evidence for right heart strain. 2. Small left pleural effusion with adjacent atelectasis/consolidation. 3. Cardiomegaly. A [place] level critical message alert has been initiated for Dayton Neff MD via the [place] [employer] [facility] Results System on 08/27/2024 5:20 PM. This message alert has been sent to Dayton Neff MD via the preferences provided by the clinician for the receipt of Radiology Critical Findi ngs. Message ID [id number]. [facility], , 08/27/2024 5:20 PM
[2024-08-27] MEDS ORDERED: HEPARIN SODIUM 1,000 UN/ML (10ML VL) IV PRN (17:53)
[2024-08-27] MEDS: HEPARIN SODIUM 1,000 UN/ML (10ML VL) IV ONE (18:05)
[2024-08-27] MEDS: HEPARIN SOD,PORK IN 0.45% NACL 25,000 UNIT in 0.45% NACL 1 250ML.BAG IV SCH (18:07)
[2024-08-27 18:51] LABS: Basophils # (A) 0.02 10*3/uL (0.00-0.10); Basophils % (A) 0.2 %; Eosinophils # (A) 0.19 10*3/uL (0.04-0.35); Eosinophils % (A) 1.8 %; HCT 48.2 % (39.6-50.0); HGB 16.5 g/dL (13.0-17.0); Lymphocytes # (A) 0.91 10*3/uL (0.90-5.00); Lymphocytes % (A) 8.5 %; MCH 32.7 pg (27.0-32.0); MCHC 34.2 g/dL (32.0-37.0); MCV 95.4 fL (80.0-97.0); Monocytes # (A) 0.68 10*3/uL (0.20-1.00); Monocytes % (A) 6.3 %; Neutrophils # (A) 8.91 10*3/uL (1.80-7.70); Neutrophils % (A) 82.8 %; Platelet Count 207 10*3/uL (140-440); RBC 5.05 10*6/uL (4.40-5.60); RDW 12.8 % (11.5-14.5); WBC 10.75 10*3/uL (4.50-10.00)
[2024-08-27 19:31] LABS: INR 1.4 (<1.2); Prothrombin Time 14.4 sec (10.0-12.5)
[2024-08-27 19:40] LABS: Partial Thromboplastin Time >200.0 sec (22.0-30.0)
--- NOTE | 2024-08-27 23:45 | PN ---
PROGRESS NOTE DATE OF SERVICE: 08/27/2024 CHIEF COMPLAINT: Chest and abdominal pain. HISTORY OF PRESENT ILLNESS: This gentleman remains quite restless and agitated. CTA suggests that he has multiple pulmonary emboli, and he will be heparinized. PHYSICAL EXAMINATION: CHEST: Breath sounds are heard bilaterally. CARDIAC: Normal. ABDOMEN: Soft, nontender. IMPRESSION: 1. Pulmonary emboli. 2. Chronic obstructive pulmonary disease. PLAN: 1. Await echocardiogram. 2. Consult Pulmonology. MMODL / IJN: [id number] /
--- NOTE | 2024-08-28 02:51 | HP ---
HISTORY AND PHYSICAL CHIEF COMPLAINT: Chest and abdominal pain. HISTORY OF PRESENT ILLNESS: This gentleman presented to the emergency room with complaints of left-sided chest pain as well as left upper quadrant pain. In the emergency room, his workup failed to demonstrate an obvious cause. He stated that he is a poor historian and was unable to give any other details. He denied fever and chills, hemoptysis, sputum production, melena, hematochezia, urinary complaints, etc. He did seem to be agitated and possibly slightly confused. The remainder of his current history is unremarkable and difficult to obtain. He was dehydrated. In the emergency room, laboratory studies revealed that he was dehydrated and he had a white count of 12,600. His D-dimer was slightly elevated. He has a history of COPD and GERD and he does have a left renal staghorn calculus. CURRENT MEDICATIONS: Include, 1. Atorvastatin. 2. Tamsulosin. 3. Lisinopril. 4. Trelegy. 5. Ventolin. 6. Aspirin. 7. He apparently cannot take Pulmicort rescue inhaler. 8. He does continue to smoke every day. PHYSICAL EXAMINATION: HEAD, EARS, EYES, NOSE, MOUTH AND THROAT: Normal. His face was flushed. CHEST: Demonstrated scattered rales and rhonchi. CARDIAC: Revealed sinus rhythm. ABDOMEN: Soft and nontender. EXTREMITIES: Normal. He seemed to have slight left-sided anterior chest wall tenderness. IMPRESSION: 1. Left-sided chest and left upper quadrant pain, etiology unknown. 2. Chronic obstructive pulmonary disease. 3. History of chronic kidney disease. 4. Left staghorn calculus. 5. Hyperlipidemia. PLAN: 1. Bed rest. 2. IV fluids. 3. Consult with Cardiology. 4. CTA of the chest. 5. Analgesics. MMODL / IJN: [id number] /
--- NOTE | 2024-08-28 07:38 | CA ---
Transthoracic Echo Report Name: Wing Pacheco Age: 69 Gender: M : 1955 Exam Date: 08/27/2024 15:47 Exam Location: [facility] Ht (in): 69 Wt (lb): 240 Ordering Physician: Bhavin Diaz DO Attending/Referring Phys: Plasterer Apprentice Jamilah Dao RDCS Procedure CPT: Indications: CP Cardiac Hx: Technical Quality: Fair Contrast 1: Total Dose (mL): Contrast 2: Total Dose (mL): MEASUREMENTS (Male / Female) Normal Values 2D ECHO LV Diastolic Diameter PLAX 5.8 cm 4.2 - 5.9 / 3.9 - 5.3 cm LV Systolic Diameter PLAX 3.9 cm IVS Diastolic Thickness 1.1 cm 0.6 - 1.0 / 0.6 - 0.9 cm LVPW Diastolic Thickness 0.9 cm 0.6 - 1.0 / 0.6 - 0.9 cm LV Relative Wall Thickness 0.4 RV Internal Dim ED PLAX 3.4 cm LA Systolic Diameter LX 3.4 cm 3.0 - 4.0 / 2.7 - 3.8 cm M-MODE Aortic Root Diameter MM 3.1 cm AV Cusp Separation MM 2.3 cm DOPPLER AV Peak Velocity 131.0 cm/s AV Peak Gradient 6.9 mmHg AV Mean Velocity 79.9 cm/s AV Mean Gradient 2.9 mmHg AV Velocity Time Integral 24.7 cm Mitral E Point Velocity 91.6 cm/s Mitral A Point Velocity 89.7 cm/s Mitral E to A Ratio 1.0 MV Deceleration Time 143.9 ms FINDINGS Left Ventricle Left ventricular ejection fraction is estimated at 55-60 %. Mildly increased septal wall thickness. Left ventricular cavity size normal. No obvious regional wall motion abnormalities. Right Ventricle Normal right ventricular size. Unable to estimate the right ventricular systolic pressure. Right Atrium Normal right atrial size. No right atrial thrombus or mass seen. Left Atrium Normal left atrial size. No left atrial thrombus or mass present. Mitral Valve Structurally normal mitral valve. No mitral stenosis, regurgitation or prolapse. Aortic Valve Trileaflet aortic valve. Aortic valve sclerosis. No aortic regurgitation. Tricuspid Valve Structurally normal tricuspid valve. No tricuspid stenosis, regurgitation or prolapse. Pulmonic Valve Pulmonic valve not well visualized. Pericardium No pericardial effusion. Aorta Normal size aortic root and proximal ascending aorta. CONCLUSIONS Normal LV function Previewed by: Dr. Boris Quiros MD (Electronically Signed) Final Date: 28 August 2024 07:37
[2024-08-28 07:49] LABS: Basophils # (A) 0.03 X 10*3/uL (0.00-0.10); Basophils % (A) 0.3 %; Eosinophils # (A) 0.45 X 10*3/uL (0.04-0.35); Eosinophils % (A) 4.6 %; HCT 45.5 % (39.6-50.0); HGB 15.1 g/dL (13.0-17.0); Immature Grans, Automated 0.40 %; Lymphocytes # (A) 1.02 X 10*3/uL (0.90-5.00); Lymphocytes % (A) 10.3 %; MCH 31.6 pg (27.0-32.0); MCHC 33.2 g/dL (32.0-37.0); MCV 95.2 FL (80.0-97.0); Monocytes # (A) 0.76 X 10*3/uL (0.20-1.00); Monocytes % (A) 7.7 %; NRBC Per 100 WBC 0 X 10*3/uL (0.00-0.01); Neutrophils # (A) 7.56 X 10*3/uL (1.80-7.70); Neutrophils % (A) 76.7 %; Platelet Count 205 X 10*3/uL (140-440); RBC 4.78 X 10*6/uL (4.40-5.60); RDW 12.8 % (11.5-14.5); WBC 9.86 X 10*3/uL (4.50-10.00)
--- NOTE | 2024-08-28 08:25 | P.CNPUL ---
History of Present Illness Consult date: 08/28/24 Requesting physician: Melisa Burks History of present illness: Patient is a 69-year-old male presents department back on August with a chief complaint of left-sided chest pain which started abruptly overnight. Past medical history significant for hypertension, hyperlipidemia, COPD, obstructive sleep apnea, previous fall and left-sided hip fracture with IM implant fixation March,. Workup so far including an elevated D-dimer inciting a chest CT angiogram showing several scattered bilateral subsegmental pulmonary emboli. No CT evidence of right-sided. Additionally, small pleural with adjacent atelectasis. Labs reviewed. Troponins less than 0.012 x 3. NT-proBNP 668. Patient was previously started on IV heparin per protocol. He is currently being evaluated 6 floor. He is on 3 L/min nasal cannula. He does chronically wear oxygen at home. Does not appear in distress. Continues to have left-sided pleuritic-like chest pain. Denies any coughing, hemoptysis, fevers or chills. Denies any heart palpitations, lightheadedness or syncope. No previous history of DVT or PE. No recent hospitalization. He did go to [facility] following his left hip fracture and surgical repair back in March,. He left because he did not like the care. He has been fairly sedentary since then. No unilateral lower extremity edema. Blood pressure normotensive. Nontachycardic. Echocardiogram reviewed, preserved left ventricular ejection fraction, no valvular abnormalities, RVSP was not able to be estimated. Hemod ynamics stable. Review of Systems Constitutional: Denies chills, Denies fatigue, Denies fever, Denies poor appetite, Denies weight gain, Denies weight loss Ears, nose, mouth and throat: Denies headache, Denies nasal congestion, Denies nasal discharge, Denies post-nasal drip, Denies sinus pain, Denies sinus pressure, Denies sore throat Cardiovascular: Denies chest pain, Denies leg edema, Denies lightheadedness, Denies orthopnea, Denies palpitations, Denies paroxysmal nocturnal dyspnea, Denies syncope Respiratory: Reports as per HPI Gastrointestinal: Denies abdominal pain, Denies diarrhea, Denies nausea, Denies vomiting Genitourinary: Denies dysuria, Denies hematuria Musculoskeletal: Denies limitation of motion Integumentary: Denies rash, Denies unusual bruising Neurological: Denies head injury, Denies headaches, Denies seizures, Denies syncope Psychiatric: Denies anxiety, Denies depression Past Medical History Past Medical History: Coronary Artery Disease (CAD), COPD, Hypertension, Myocardial Infarction ([place]), Sleep Apnea/CPAP/BIPAP Additional Past Medical History / Comment(s): kidney stones Last Myocardial Infarction Date:: 2008 History of Any Multi-Drug Resistant Organisms: None Reported Past Surgical History: Back Surgery, Orthopedic Surgery Past Anesthesia/Blood Transfusion Reactions: No Reported Reaction Past Psychological History: Depression Smoking Status: Current every day smoker Past Alcohol Use History: None Reported Past Drug Use History: Marijuana Medications and Allergies Home Medications Medication Instructions Recorded Confirmed Type lisinopriL [Zestril] 10 mg PO HS@199903/13/18 08/26/24 History Albuterol Inhaler [Ventolin Hfa 2 puff INHALATION RT-QID PRN 05/25/20 08/26/24 H istory Inhaler] Aspirin EC [Ecotrin Low Dose] 81 mg PO HS@199905/25/20 08/26/24 History Atorvastatin Calcium [Lipitor] 40 mg PO HS@199905/25/20 08/26/24 History Ergocalciferol [Vitamin D2 (1250 1,250 mcg PO Q30D 04/18/24 08/26/24 History Mcg = [id number] Iu)] Fluticasone/Umeclidin/Vilanter 1 puff INHALATION RT-DAILY 04/18/24 08/26/24 History [Trelegy Ellipta 100-62.5-25] Tamsulosin [Flomax] 0.4 mg PO HS@199904/18/24 08/26/24 History Ipratropium-Albuterol Nebulize 3 ml INHALATION RT-QID #120 each 04/23/24 08/26/24 Rx [Duoneb 0.5 mg-3 mg/3 ml Soln] Allergies Allergy/AdvReac Type Severity Reaction Status Date / Time No Known Allergies Allergy Verified 08/26/24 16:57 Physical Exam Vitals: Vital Signs Temp Pulse Pulse Resp BP BP Pulse Ox 08/28/24 02:00 98.3 F 68 16 120/73 93 L 08/27/24 20:00 22 08/27/24 18:49 98.1 F 65 16 147/80 95 08/27/24 14:00 26 H 08/27/24 13:04 97.8 F 60 20 113/64 95 08/27/24 11:43 98.1 F 93 26 H 124/80 93 L 08/27/24 11:09 72 08/27/24 10:56 72 08/27/24 08:00 20 08/27/24 07:30 93 L Intake and Output 08/27/24 08/28/24 08/28/24 22:59 06:59 14:59 Intake Total 32.005 Output Total 280 Balance 32.005 -280 Intake: Intake, IV Titration 32.005 Amount Heparin Sod,Pork in 0.45% 32.005 NaCl 25,000 unit In 0.45 % NaCl 1 250ml.bag @ 18 UNITS/KG/HR 19.595 mls/hr IV .[id number] [facility] Rx#: [id number] Output: Urine 280 Other: Voiding Method Urinal GENERAL EXAM: Alert, 69-year-old obese male, laying on his left side. CPAP is on standby. He is on 3 L/min nasal cannula, nondistressed. HEAD: Normocephalic and atraumatic EYES: Normal reaction of pupils, equal size. NOSE: Clear with pink turbinates. THROAT: No erythema or exudates. NECK: No masses, no JVD. CHEST: No chest wall deformity. LUNGS: Equal air entry with no crackles, wheeze, rhonchi or dullness. No conversational dyspnea or accessory muscle use.. CVS: S1 and S2 normal with no audible murmur, regular rhythm. No extra heart sounds ABDOMEN: No hepatosplenomegaly, active bowel sounds, no guarding or rigidity. SPINE: No scoliosis or deformity SKIN: No rashes CENTRAL NERVOUS SYSTEM: No focal deficits, tone is normal in all 4 extremities. EXTREMITIES: There is no peripheral edema, clubbing, or cyanosis. Peripheral pulses are intact. Results - Laboratory Findings CBC and BMP: 08/28/24 03:32 08/27/24 11:49 PT/INR, D-dimer PT 14.4 sec (10.0-12.5) H 08/27/24 18:21 INR 1.4 (<1.2) H 08/27/24 18:21 D-Dimer 2.53 mg/L FEU (<0.60) H 08/27/24 11:49 Abnormal lab findings: Abnormal Labs 08/26/24 08/26/24 08/26/24 13:16 13:16 16:27 WBC 12.69 H Hgb 17.6 H Hct 51.9 H MCH 32.4 H Immature Gran # 0.05 H Neutrophils # 10.01 H PT INR APTT D-Dimer Glucose 138 H Total Bilirubin 1.6 H Alkaline Phosphatase 131 H Ur Specific [place] >1.050 H Urine Protein Trace H Urine Ketones 1+ H Urine Blood Moderate H Urine RBC 23 H Calcium Oxalate Crystal Rare H Urine Mucus Moderate H 08/27/24 08/27/24 08/27/24 11:49 11:49 18:21 WBC 10.75 H Hgb Hct MCH 32.7 H Immature Gran # Neutrophils # 8.91 H PT INR APTT D-Dimer 2.53 H Glucose 100 H Total Bilirubin Alkaline Phosphatase Ur Specific [place] Urine Protein Urine Ketones Urine Blood Urine RBC Calcium Oxalate Crystal Urine Mucus 08/27/24 08/28/24 18:21 03:32 WBC Hgb Hct MCH Immature Gran # Neutrophils # PT 14.4 H INR 1.4 H APTT >200.0 H* 59.2 H D-Dimer Glucose Total Bilirubin Alkaline Phosphatase Ur Specific [place] Urine Protein Urine Ketones Urine Blood Urine RBC Calcium Oxalate Crystal Urine Mucus - Diagnostic Findings CT scan - chest: image reviewed Assessment and Plan Assessment: Bilateral acute pulmonary emboli, within the segmental branches of the right middle lobe, right lower lobe, left upper lobe, and left lower lobe pulmonary arteries. No CT evidence of right-sided heart strain. Acute on chronic dyspnea, secondary to above Chest pain, pleuritic, secondary to above History of left intertrochanteric femur fracture status post operative fixation of the left hip with intramedullary implant March, Severe oxygen dependent COPD, stable Chronic hypoxemic respiratory failure, chronically on 3 to 4 L nasal cannula at home Obstructive sleep apnea with home CPAP Left staghorn calculus Hypertension History of hyperlipidemia History of alcohol abuse chronic nicotine dependence Obesity, BMI 35.4 kg/m Plan: Continue supplemental oxygen Hemodynamics are stable Echocardiogram reviewed, preserved left ventricular ejection fraction, no valvular abnormalities, RVSP was not able to be estimated Patient currently on IV heparin per protocol and will likely switch to be DOAC for at least 3 to 6 months I have personally seen and examined the patient, performed the documentation and the assessment and plan as written. Number of minutes spent on the visit:20 Time with Patient: Greater than 30
[2024-08-28] MEDS: ASPIRIN 81 MG PO SCH (08:26)
[2024-08-28] MEDS: Apixaban Initiation Dose--VTE 5 MG TAB PO SCH (11:06)
--- NOTE | 2024-08-28 11:24 | P.PN ---
Subjective HISTORY OF PRESENT ILLNESS: This is a 69-year-old male with a past medical history significant for hypertension and hyperlipidemia. Patient does not follow with a pattern changer and repairer. We have been asked to see the patient in consultation for chest pain. Patient examined at the bedside. Patient is a poor historian. He reports that he came to the hospital due to shortness of breath. He also reports left-sided chest pain. He states the pain is only occurring when he takes a deep breath. He states the pain has been coming and going for a few months. Per nursing, patient was found to be hypoxic on room air this morning. DIAGNOSTICS: - EKG reveals sinus tachycardia with ST depression in V3V6. Baseline artifact.. - Chest xray coarse opacity seen throughout both lung vences which may be related to fibrosis versus interstitial pneumonia - Laboratory data: WBC 12.69. Hemoglobin 17.6. Platelet count 233. Sodium 140. Potassium 4.1. BUN 17. Creatinine 1.03. Troponin negative x 3 - Current home cardiac medications include lisinopril 10 mg daily, atorvastatin 40 mg daily, aspirin 81 mg daily. - Most recent echocardiogram obtained in March 2024 revealed ejection fraction 55 to 60%, no obvious regional wall motion abnormalities, valves not well-visualized - Cardiac catheterization history: Patient denies 08/28/2024 Patient underwent CTA yesterday revealing several scattered bilateral subsegmental pulmonary emboli. No evidence for right heart strain. Patient remains on IV heparin this morning. He reports improvement in his shortness of breath. He denies any chest pain or pressure. Echocardiogram completed revealing ejection fraction 55 to 60%, normal right ventricular size, unable to estimate right ventricular systolic pressure. PHYSICAL EXAM: VITAL SIGNS: Reviewed. GENERAL: Well-developed in no acute distress. HEENT: Head is normocephalic. Pupils are equal, round. Sclerae anicteric. Mucous membranes of the mouth are moist. Neck supple. No JVD or thyromegaly LUNGS: Respirations even and unlabored. Lungs essentially clear to auscultation bilaterally. HEART: Regular rate and rhythm. S1 and S2 heard. ABDOMEN: Soft. Nondistended. Nontender. EXTREMITIES: Normal range of motion. No clubbing or cyanosis. Peripheral pulses intact. No lower extremity edema NEUROLOGIC: Awake and alert. Oriented x 3. ASSESSMENT: Chest pain, pleuritic troponin negative x 3, ACS ruled out Bilateral pulmonary emboli Shortness of breath Severe COPD Nicotine dependence Physical debility, patient uses motorized wheelchair Hypertension Hyperlipidemia Obstructive sleep apnea History of intertrochanteric fracture, 03/2024 Nicotine dependence PLAN: Discontinue IV heparin Begin Eliquis Pulmonary following Further recommendations pending patient course Nurse practitioner note has been reviewed by physician. Signing provider agrees with the documented findings, assessment, and plan of care documented by [employer] as a scribe. Objective - Vital Signs Vital signs: Vital Signs Temp 98.4 F 08/28/24 07:22 Pulse 67 08/28/24 07:22 Resp 17 08/28/24 07:22 BP 147/79 08/28/24 07:22 Pulse Ox 95 08/28/24 07:22 FiO2 Intake & Output 08/27/24 08/28/24 08/28/24 18:59 06:59 18:59 Intake Total 120 32.005 0 Output Total 280 450 Balance 120 -247.995 -450 Intake: Intake, IV Titration 32.005 Amount Heparin Sod,Pork in 0.45% 32.005 NaCl 25,000 unit In 0.45 % NaCl 1 250ml.bag @ 18 UNITS/KG/HR 19.595 mls/hr IV .[id number] [facility] Rx#: [id number] Oral 120 0 Output: Urine 280 450 Other: Voiding Method Urinal Urinal - Labs CBC & Chem 7: 08/28/24 03:32 08/27/24 11:49 Labs: Abnormal Lab Results - Last 24 Hours (Table) 08/27/24 08/27/24 08/27/24 Range/Units 11:49 11:49 18:21 WBC 10.75 H (4.50-10.00) 10*3/uL MCH 32.7 H (27.0-32.0) pg Neutrophils # 8.91 H (1.80-7.70) 10*3/uL Eosinophils # (0.04-0.35) X 10*3/uL PT (10.0-12.5) sec INR (<1.2) APTT (22.0-30.0) sec D-Dimer 2.53 H (<0.60) mg/L FEU Glucose 100 H (74-99) mg/dL 08/27/24 08/28/24 08/28/24 Range/Units 18:21 03:32 03:32 WBC (4.50-10.00) 10*3/uL MCH (27.0-32.0) pg Neutrophils # (1.80-7.70) 10*3/uL Eosinophils # 0.45 H (0.04-0.35) X 10*3/uL PT 14.4 H (10.0-12.5) sec INR 1.4 H (<1.2) APTT >200.0 H* 59.2 H (22.0-30.0) sec D-Dimer (<0.60) mg/L FEU Glucose (74-99) mg/dL
[2024-08-28] MEDS ORDERED: DEXTROSE 50% SYRINGE 50 ML IVP PRN ×2 (11:54)
--- NOTE | 2024-08-28 12:23 | P.PN ---
Subjective Progress Note Date: 08/28/24 CT angiogram showed evidence of a PE, at this point he is having minimal flank pain no gross hematuria Objective - Vital Signs Vital signs: Vital Signs Temp 98.4 F 08/28/24 07:22 Pulse 67 08/28/24 07:22 Resp 17 08/28/24 07:22 BP 147/79 08/28/24 07:22 Pulse Ox 95 08/28/24 07:22 FiO2 Intake & Output 08/27/24 08/28/24 08/28/24 18:59 06:59 18:59 Intake Total 120 32.005 0 Output Total 280 450 Balance 120 -247.995 -450 Intake: Intake, IV Titration 32.005 Amount Heparin Sod,Pork in 0.45% 32.005 NaCl 25,000 unit In 0.45 % NaCl 1 250ml.bag @ 18 UNITS/KG/HR 19.595 mls/hr IV .[id number] [facility] Rx#: [id number] Oral 120 0 Output: Urine 280 450 Other: Voiding Method Urinal Urinal - Constitutional General appearance: Present: no acute distress - Gastrointestinal General gastrointestinal: Present: soft. Absent: distended, tenderness - Labs CBC & Chem 7: 08/28/24 03:32 08/27/24 11:49 Labs: Abnormal Lab Results - Last 24 Hours (Table) 08/27/24 08/27/24 08/27/24 Range/Units 11:49 11:49 18:21 WBC 10.75 H (4.50-10.00) 10*3/uL MCH 32.7 H (27.0-32.0) pg Neutrophils # 8.91 H (1.80-7.70) 10*3/uL Eosinophils # (0.04-0.35) X 10*3/uL PT (10.0-12.5) sec INR (<1.2) APTT (22.0-30.0) sec D-Dimer 2.53 H (<0.60) mg/L FEU Glucose 100 H (74-99) mg/dL 08/27/24 08/28/24 08/28/24 Range/Units 18:21 03:32 03:32 WBC (4.50-10.00) 10*3/uL MCH (27.0-32.0) pg Neutrophils # (1.80-7.70) 10*3/uL Eosinophils # 0.45 H (0.04-0.35) X 10*3/uL PT 14.4 H (10.0-12.5) sec INR 1.4 H (<1.2) APTT >200.0 H* 59.2 H (22.0-30.0) sec D-Dimer (<0.60) mg/L FEU Glucose (74-99) mg/dL Assessment and Plan Assessment: 69-year-old male admitted to the hospital with a PE, also history of a left staghorn calculi, given the acute PE at this point we will hold off any intervention for his staghorn until it is safe for him to discontinue anticoagulants, can follow-up as an outpatient for management of his staghorn
[2024-08-28] MEDS: FUROSEMIDE 10 MG/ML 4 ML VIAL IV STA (12:29)
[2024-08-28] MEDS: methylPREDNISolone SOD SUCCI 125 MG/2 ML VIAL IV SCH (12:32)
--- NOTE | 2024-08-28 12:35 | XR ---
EXAMINATION TYPE: XR chest 1V portable DATE OF EXAM: 08/28/2024 12:26 PM COMPARISON: 08/26/2024 CLINICAL INDICATION: Male, 69 years old with history of SOB, TECHNIQUE: XR chest 1V portable views of the chest are obtained. FINDINGS: Demonstrated are scattered senescent parenchymal change. Increasing patchy infiltrate left lower lobe suspicious for pneumonia. Correlate clinically and progr ess studies recommended. The heart is stable. Hilar and mediastinal structures are within normal limits. Degenerative changes are seen of the dorsal spine. IMPRESSION: 1. Increasing patchy infiltrate left lower lobe suspicious for pneumonia. Correlate clinically and p rogress studies recommended. [facility], , 08/28/2024 12:32 PM
--- NOTE | 2024-08-28 12:42 | PN ---
PROGRESS NOTE DATE OF SERVICE: 08/28/2024 I am covering for Dr. Neff. SUBJECTIVE: This is a 69-year-old gentleman was admitted with chest pain, abdominal pain, and bilateral multiple pulmonary embolus. The patient also had possibly left lower lobe atelectasis and pneumonia also. The patient has mucopurulent sputum. The patient is on BiPAP. The patient also had some abdominal pain also and left Staghorn calculus also. There is no history of any fever, rigors, or chills. Multiple consultants are following the patient closely. A 2D echo with Doppler was normal. PAST MEDICAL HISTORY: Reviewed. REVIEW OF SYSTEMS: A 14-point review of systems negative except as mentioned earlier. CURRENT MEDICATIONS: Reviewed. PHYSICAL EXAMINATION: VITAL SIGNS: Pulse 67, blood pressure 147/70, and respirations 17. HEENT: Conjunctivae normal. NECK: No JVD. CARDIOVASCULAR: S1 and S2. RESPIRATIONS: Breath sounds diminished at the bases with scattered rhonchi. ABDOMEN: Soft. NERVOUS SYSTEM: Nonfocal. LABORATORY DATA: Reviewed. ASSESSMENT: 1. Chest pain, possible acute bilateral pulmonary embolism on IV heparin. 2. Possible left lower pneumonia, apparent tracheobronchitis possibly gram-negative. 3. Chronic obstructive pulmonary disease acute exacerbation. 4. Obstructive sleep apnea on BiPAP. 5. Hypertension. 6. History of coronary artery disease. 7. History of myocardial infarction. 8. Obesity. 9. Multiple complex medical issues. 10.Staghorn calculi. RECOMMENDATION: This is a 69-year-old gentleman presented with multiple complex medical issues. We will monitor the patient closely. Recommend bronchodilators, empiric antibiotics. Continue with IV heparin. Closely follow with multiple consultants. Symptomatic treatment of the pain. Guarded prognosis, because of the multiple complex medical issues and further recommendations to follow. See orders for further details. I would also recommend a dose of Lasix also. MMODL / IJN: [id number] /
[2024-08-28 14:14] LABS: Glucose,Whole Blood 99 mg/dL (70-110)
[2024-08-28] MEDS: IPRATROPIUM-ALBUTEROL 3 ML NEB INHALATION SCH (15:20)
[2024-08-28] MEDS: INSULIN LISPRO (HumaLOG) 100 UNIT/ML 10 mL VL SQ SCH (15:44)
[2024-08-28 17:16] LABS: RSV Not Detected (Not Detectd)
[2024-08-28 17:35] LABS: Glucose,Whole Blood 136 mg/dL (70-110)
[2024-08-28 19:53] LABS: Glucose,Whole Blood 169 mg/dL (70-110)
[2024-08-28] MEDS: HYDROcodone/APAP 5-325MG 1 EACH TAB PO PRN (20:27)
[2024-08-29 05:45] LABS: Glucose,Whole Blood 131 mg/dL (70-110)
[2024-08-29] MEDS: PANTOPRAZOLE 40 MG TABLET PO SCH (06:28)
[2024-08-29 12:28] LABS: Glucose,Whole Blood 126 mg/dL (70-110)
--- NOTE | 2024-08-29 12:38 | P.PN ---
Subjective Progress Note Date: 08/29/24 Patient is a 69-year-old male presents department back on August with a chief complaint of left-sided chest pain which started abruptly overnight. Past medical history significant for hypertension, hyperlipidemia, COPD, obstructive sleep apnea, previous fall and left-sided hip fracture with IM implant fixation March,. Workup so far including an elevated D-dimer inciting a chest CT angiogram showing several scattered bilateral subsegmental pulmonary emboli. No CT evidence of right-sided. Additionally, small pleural with adjacent atelectasis. Labs reviewed. Troponins less than 0.012 x 3. NT-proBNP 668. Patient was previously started on IV heparin per protocol. He is currently being evaluated 6 floor. He is on 3 L/min nasal cannula. He does chronically wear oxygen at home. Does not appear in distress. Continues to have left-sided pleuritic-like chest pain. Denies any coughing, hemoptysis, fevers or chills. Denies any heart palpitations, lightheadedness or syncope. No previous history of DVT or PE. No recent hospitalization. He did go to [facility] following his left hip fracture and surgical repair back in March,. He left because he did not like the care. He has been fairly sedentary since then. No unilateral lower extremity edema. Blood pressure normotensive. Nontachycardic. Echocardiogram reviewed, preserved left ventricular ejection fraction, no valvular abnormalities, RVSP was not able to be estimated. Hemodynamics stable. The patient is seen today August 29, 2024 in follow-up of the regular medical floor. He is currently resting in bed. Awake and alert in no acute distress. Continues with a loose congested cough. Maintaining O2 saturations in the 90s on 3 L/min per nasal cannula. Alternating with CPAP. Follow-up chest x-ray reveals increasing patchy infiltrate in the left lower lobe suspicious for pneumonia. Blood culture pending. Glucose 108. Hemoglobin A1c 5.4. He remains on DuoNeb inhalation, Symbicort, Solu-Medrol. NicoDerm patch in place. He has been transition to Eliquis. Remains on ceftriaxone. Objective - Vital Signs Vital signs: Vital Signs Temp 98.1 F 08/29/24 07:25 Pulse 84 08/29/24 12:14 Resp 16 08/29/24 07:25 BP 122/71 08/29/24 07:25 Pulse Ox 94 L 08/29/24 07:25 FiO2 Intake & Output 08/28/24 08/29/24 08/29/24 18:59 06:59 18:59 Intake Total 118 Output Total 3270 Balance -3152 Intake: Oral 118 Output: Urine 3270 Other: Voiding Method Urinal # Voids 2 2 - Exam GENERAL EXAM: Alert, 69-year-old obese male, resting in bed. CPAP is on standby. Currently on 3 L/min nasal cannula, nondistressed. HEAD: Normocephalic and atraumatic EYES: Normal reaction of pupils, equal size. NOSE: Clear with pink turbinates. THROAT: No erythema or exudates. NECK: No masses, no JVD. CHEST: No chest wall deformity. LUNGS: Equal air entry with crackles in the left lung base. No conversational dyspnea or accessory muscle use. CVS: S1 and S2 normal with no audible murmur, regular rhythm. No extra heart sounds ABDOMEN: No hepatosplenomegaly, active bowel sounds, no guarding or rigidity. SPINE: No scoliosis or deformity SKIN: No rashes CENTRAL NERVOUS SYSTEM: No focal deficits, tone is normal in all 4 extremities. EXTREMITIES: There is no peripheral edema, clubbing, or cyanosis. Peripheral pulses are intact. - Labs CBC & Chem 7: 08/28/24 03:32 08/27/24 11:49 Labs: Abnormal Lab Results - Last 24 Hours (Table) 08/28/24 08/28/24 08/29/24 Range/Units 17:34 19:50 05:43 POC Glucose (mg/dL) 136 H 169 H 131 H (70-110) mg/dL 08/29/24 Range/Units 12:27 POC Glucose (mg/dL) 126 H (70-110) mg/dL Microbiology - Last 24 Hours (Table) 08/27/24 11:55 Blood Culture - Preliminary Blood Assessment and Plan Assessment: Bilateral acute pulmonary emboli, within the segmental branches of the right middle lobe, right lower lobe, left upper lobe, and left lower lobe pulmonary arteries. No CT evidence of right-sided heart strain. Transition from a heparin drip to Eliquis Acute on chronic hypoxic respiratory failure, secondary to above Chest pain, pleuritic, secondary to above. Improved History of left intertrochanteric femur fracture status post operative fixation of the left hip with intramedullary implant March, Severe oxygen dependent COPD, stable Chronic hypoxemic respiratory failure, chronically on 3 to 4 L nasal cannula at home Obstructive sleep apnea with home CPAP Left staghorn calculus Hypertension History of hyperlipidemia History of alcohol abuse Chronic nicotine dependence Obesity, BMI 35.4 kg/m Plan: The patient was seen and evaluated Chest x-ray, labs and medications reviewed Stable on 3 L nasal cannula Alternating with his CPAP Transitioned to Eliquis Continue DuoNeb and elations Continue Symbicort Continue Solu-Medrol Continue ceftriaxone Educated regarding smoking cessation NicoDerm patch in place Increase his activity as tolerated This patient was seen independently by the pulmonary nurse practitioner addressing pulmonary issues I have personally seen and examined the patient, performed the documentation and the assessment and plan as written. Number of minutes spent on the visit: 25 Dictation was produced using [employer] dictation software. Please excuse any grammatical, word or spelling errors.
--- NOTE | 2024-08-29 14:53 | P.PN ---
Subjective Progress Note Date: 08/29/24 HISTORY OF PRESENT ILLNESS: This is a 69-year-old male with a past medical history significant for hype rtension and hyperlipidemia. Patient does not follow with a elevator installer apprentice. We have been asked to see the patient in consultation for chest pain. Patient examined at the bedside. Patient is a poor historian. He reports that he came to the hospital due to shortness of breath. He also reports left-sided chest pain. He states the pain is only occurring when he takes a deep breath. He states the pain has been coming and going for a few months. Per nursing, patient was found to be hypoxic on room air this morning. DIAGNOSTICS: - EKG reveals sinus tachycardia with ST depression in V3V6. Baseline artifact.. - Chest xray coarse opacity seen throughout both lung vences which may be related to fibrosis versus interstitial pneumonia - Laboratory data: WBC 12.69. Hemoglobin 17.6. Platelet count 233. Sodium 140. Potassium 4.1. BUN 17. Creatinine 1.03. Troponin negative x 3 - Current home cardiac medications include lisinopril 10 mg daily, atorvastatin 40 mg daily, aspirin 81 mg daily. - Most recent echocardiogram obtained in March 2024 revealed ejection fraction 55 to 60%, no obvious regional wall motion abnormalities, valves not well-visualized - Cardiac catheterization history: Patient denies 08/28/2024 Patient underwent CTA yesterday revealing several scattered bilateral bland bsegmental pulmonary emboli. No evidence for right heart strain. Patient remains on IV heparin this morning. He reports improvement in his shortness of breath. He denies any chest pain or pressure. Echocardiogram completed revealing ejection fraction 55 to 60%, normal right ventricular size, unable to estimate right ventricular systolic pressure. 08/29/24 He is on BiPAP. He is not feeling well, as he is confined to bed. Feeling shortness of breath is somewhat better. Urine is dark red. PHYSICAL EXAM: VITAL SIGNS: Reviewed. GENERAL: Well-developed in no acute distress. HEENT: Head is normocephalic. Pupils are equal, round. Sclerae anicteric. Mucous membranes of the mouth are moist. Neck supple. LUNGS: Respirations even and unlabored. Lungs essentially clear to auscultation bilaterally. HEART: Regular rate and rhythm. S1 and S2 heard. ABDOMEN: Soft. Nondistended. Nontender. EXTREMITIES: Normal range of motion. No clubbing or cyanosis. Peripheral pulses intact. No lower extremity edema NEUROLOGIC: Awake and alert. Oriented x 3. ASSESSMENT: Chest pain, pleuritic troponin negative x 3, ACS ruled out Bilateral pulmonary emboli Shortness of breath Severe COPD Nicotine dependence Physical debility, patient uses motorized wheelchair Hypertension Hyperlipidemia Obstructive sleep apnea History of intertrochanteric fracture, 03/2024 Nicotine dependence PLAN: Continue anticoagulation Pulmonary following Further recommendations pending patient course Nurse practitioner note has been reviewed by Dr. Webster. Signing provider agrees with the documented findings, assessment, and plan of care documented by DIRECTOR OF STUDENT SERVICES as a scribe. Objective - Vital Signs Vital signs: Vital Signs Temp 97.5 F L 08/29/24 00:16 Pulse 63 08/29/24 00:16 Resp 18 08/29/24 00:16 BP 123/69 08/29/24 00:16 Pulse Ox 96 08/29/24 00:16 FiO2 Intake & Output 08/28/24 08/29/24 08/29/24 18:59 06:59 18:59 Intake Total 118 Output Total 3270 Balance -3152 Intake: Oral 118 Output: Urine 3270 Other: Voiding Method Urinal # Voids 2 2 - Labs CBC & Chem 7: 08/28/24 03:32 08/27/24 11:49 Labs: Abnormal Lab Results - Last 24 Hours (Table) 08/28/24 08/28/24 08/29/24 Range/Units 17:34 19:50 05:43 POC Glucose (mg/dL) 136 H 169 H 131 H (70-110) mg/dL Microbiology - Last 24 Hours (Table) 08/27/24 11:55 Blood Culture - Preliminary Blood
[2024-08-29 17:42] LABS: Glucose,Whole Blood 191 mg/dL (70-110)
[2024-08-29 20:35] LABS: Glucose,Whole Blood 134 mg/dL (70-110)
--- NOTE | 2024-08-30 00:18 | PN ---
PROGRESS NOTE DATE OF SERVICE: 08/29/2024 I am covering for Dr. Neff. SUBJECTIVE: This is a 69-year-old gentleman, who was admitted with chest pain and shortness of breath, had bilateral pulmonary embolism. The patient also had possibly pneumonia as well. The patient is being initiated on broad-spectrum IV antibiotics. Also, the patient is feeling slightly better. PAST MEDICAL HISTORY: Reviewed. REVIEW OF SYSTEMS: A 14-point review of systems negative except as mentioned earlier. CURRENT MEDICATIONS: Reviewed. PHYSICAL EXAMINATION: VITAL SIGNS: Pulse is 84, blood pressure 110/70, respirations 16. CHEST: Bilateral scattered rhonchi and crackles. ABDOMEN: Soft. NERVOUS SYSTEM: Nonfocal. LABORATORY DATA: Reviewed. ASSESSMENT: 1. Chest pain, possible acute bilateral pulmonary embolism, on IV heparin. 2. Possible left lower pneumonia, apparent tracheobronchitis, possibly gram-negative. 3. Chronic obstructive pulmonary disease acute exacerbation. 4. History of sleep apnea, on BiPAP. 5. Hypertension. 6. History of coronary artery disease. 7. History of myocardial infarction. 8. Obesity. 9. Multiple complex medical issues. 10.Staghorn calculi history. RECOMMENDATIONS AND DISCUSSION: I recommend to continue current management, symptomatic treatment and continue the antibiotics. Continue with bronchodilators. Continue with steroids. Otherwise, the patient will be transitioned to apixaban. Recommend to repeat labs. Guarded prognosis. Closely follow with multiple consultants. Further recommendations to follow. MMODL / IJN: [id number] /
[2024-08-30 05:55] LABS: Glucose,Whole Blood 138 mg/dL (70-110)
--- NOTE | 2024-08-30 10:11 | P.PN ---
Subjective Progress Note Date: 08/30/24 Patient is a 69-year-old male presents department back on August with a chief complaint of left-sided chest pain which started abruptly overnight. Past medical history significant for hypertension, hyperlipidemia, COPD, obstructive sleep apnea, previous fall and left-sided hip fracture with IM implant fixation March,. Workup so far including an elevated D-dimer inciting a chest CT angiogram showing several scattered bilateral subsegmental pulmonary emboli. No CT evidence of right-sided. Additionally, small pleural with adjacent atelectasis. Labs reviewed. Troponins less than 0.012 x 3. NT-proBNP 668. Patient was previously started on IV heparin per protocol. He is currently being evaluated 6 floor. He is on 3 L/min nasal cannula. He does chronically wear oxygen at home. Does not appear in distress. Continues to have left-sided pleuritic-like chest pain. Denies any coughing, hemoptysis, fevers or chills. Denies any heart palpitations, lightheadedness or syncope. No previous history of DVT or PE. No recent hospitalization. He did go to [facility] following his left hip fracture and surgical repair back in March,. He left because he did not like the care. He has been fairly sedentary since then. No unilateral lower extremity edema. Blood pressure normotensive. Nontachycardic. Echocardiogram reviewed, preserved left ventricular ejection fraction, no valvular abnormalities, RVSP was not able to be estimated. Hemodynamics stable. The patient is seen today August 29, 2024 in follow-up of the regular medical floor. He is currently resting in bed. Awake and alert in no acute distress. Continues with a loose congested cough. Maintaining O2 saturations in the 90s on 3 L/min per nasal cannula. Alternating with CPAP. Follow-up chest x-ray reveals increasing patchy infiltrate in the left lower lobe suspicious for pneumonia. Blood culture pending. Glucose 108. Hemoglobin A1c 5.4. He remains on DuoNeb inhalation, Symbicort, Solu-Medrol. NicoDerm patch in place. He has been transition to Eliquis. Remains on ceftriaxone. The patient is seen today August 30, 2024 in follow-up on the regular medical floor. He is awake and alert in no acute distress. Currently resting in bed. Denies any worsening shortness of breath, cough or congestion. Maintaining O2 saturations in the 90s on 3 L/min per nasal cannula. He is utilizing CPAP through the night. Blood culture reveals no growth. Glucose 138. He remains on DuoNeb inhalations, Symbicort, Solu-Medrol. NicoDerm patch in place. Remains on ceftriaxone. Anticoagulated with Eliquis. Objective - Vital Signs Vital signs: Vital Signs Temp 97.9 F 08/30/24 07:30 Pulse 64 08/30/24 07:30 Resp 16 08/30/24 07:30 BP 123/64 08/30/24 07:30 Pulse Ox 96 08/30/24 07:30 FiO2 Intake & Output 08/29/24 08/30/24 08/30/24 18:59 06:59 18:59 Output Total 250 900 300 Balance -250 -900 -300 Output: Urine 250 900 300 Other: # Bowel Movements 0 - Exam GENERAL EXAM: Alert, oriented 69-year-old obese male patient, resting in bed. CPAP throughout the night. Currently on 3 L/min nasal cannula, nondistressed. HEAD: Normocephalic and atraumatic EYES: Normal reaction of pupils, equal size. NOSE: Clear with pink turbinates. THROAT: No erythema or exudates. NECK: No masses, no JVD. CHEST: No chest wall deformity. LUNGS: Equal air entry with crackles in the left lung base. No conversational dyspnea or accessory muscle use. CVS: S1 and S2 normal with no audible murmur, regular rhythm. No extra heart sounds ABDOMEN: No hepatosplenomegaly, active bowel sounds, no guarding or rigidity. SPINE: No scoliosis or deformity SKIN: No rashes CENTRAL NERVOUS SYSTEM: No focal deficits, tone is normal in all 4 extremities. EXTREMITIES: There is no peripheral edema, clubbing, or cyanosis. Peripheral pulses are intact. - Labs CBC & Chem 7: 08/28/24 03:32 08/27/24 11:49 Labs: Abnormal Lab Results - Last 24 Hours (Table) 08/29/24 08/29/24 08/29/24 Range/Units 12:27 17:41 20:33 POC Glucose (mg/dL) 126 H 191 H 134 H (70-110) mg/dL 08/30/24 Range/Units 05:53 POC Glucose (mg/dL) 138 H (70-110) mg/dL Microbiology - Last 24 Hours (Table) 08/27/24 11:55 Blood Culture - Preliminary Blood Assessment and Plan Assessment: Bilateral acute pulmonary emboli, within the segmental branches of the right middle lobe, right lower lobe, left upper lobe, and left lower lobe pulmonary arteries. No CT evidence of right-sided heart strain. Transition from a heparin drip to Eliquis Acute on chronic hypoxic respiratory failure, secondary to above Chest pain, pleuritic, secondary to above. Improved History of left intertrochanteric femur fracture status post operative fixation of the left hip with intramedullary implant March, Severe oxygen dependent COPD, stable Chronic hypoxemic respiratory failure, chronically on 3 to 4 L nasal cannula at home Obstructive sleep apnea with home CPAP Left staghorn calculus Hypertension History of hyperlipidemia History of alcohol abuse Chronic nicotine dependence Obesity, BMI 35.4 kg/m Poor overall functional performance based on the above-mentioned multiple comorbidities Plan: The patient was seen and evaluated Labs and medications reviewed Stable on 3 L nasal cannula Alternating with his CPAP Continued on Eliquis Continue DuoNeb inhalations Continue Solu-Medrol Continue ceftriaxone Educated again regarding smoking cessation NicoDerm patch in place Increase his activity as tolerated This patient was seen independently by the pulmonary nurse practitioner addressing pulmonary issues I have personally seen and examined the patient, performed the documentation and the assessment and plan as written. Number of minutes spent on the visit: 23 Dictation was produced using [employer] dictation software. Please excuse any grammatical, word or spelling errors.
[2024-08-30 10:12] LABS: Anion Gap 9.40 mmol/L (4.00-12.00); BUN/Creat Ratio 21.70 Ratio (12.00-20.00); Blood Urea Nitrogen 21.7 mg/dL (9.0-27.0); Calcium 8.6 mg/dL (8.7-10.3); Carbon Dioxide 22.6 mmol/L (21.6-31.8); Chloride 105 mmol/L (96-109); Glucose 131 mg/dL (70-110); Potassium 4.2 mmol/L (3.5-5.5); Sodium 137 mmol/L (135-145)
[2024-08-30 12:15] LABS: Glucose,Whole Blood 109 mg/dL (70-110)
[2024-08-30 12:57] LABS: HCT 43.2 % (39.6-50.0); HGB 14.7 g/dL (13.0-17.0); MCH 31.7 pg (27.0-32.0); MCHC 34.0 g/dL (32.0-37.0); MCV 93.1 FL (80.0-97.0); NRBC Per 100 WBC 0 X 10*3/uL (0.00-0.01); Platelet Count 268 X 10*3/uL (140-440); RBC 4.64 X 10*6/uL (4.40-5.60); RDW 12.7 % (11.5-14.5); WBC 12.35 X 10*3/uL (4.50-10.00)
[2024-08-30 12:58] LABS: Basophils # (A) 0.02 X 10*3/uL (0.00-0.10); Basophils % (A) 0.2 %; Eosinophils # (A) 0 X 10*3/uL (0.04-0.35); Eosinophils % (A) 0 %; Immature Grans, Automated 0.70 %; Lymphocytes # (A) 0.59 X 10*3/uL (0.90-5.00); Lymphocytes % (A) 4.8 %; Monocytes # (A) 0.67 X 10*3/uL (0.20-1.00); Monocytes % (A) 5.4 %; Neutrophils # (A) 10.98 X 10*3/uL (1.80-7.70); Neutrophils % (A) 88.9 %
--- NOTE | 2024-08-30 13:32 | P.PN ---
Subjective Progress Note Date: 08/30/24 HISTORY OF PRESENT ILLNESS: This is a 69-year-old male with a past medical history significant for hype rtension and hyperlipidemia. Patient does not follow with a utilization review coordinator. We have been asked to see the patient in consultation for chest pain. Patient examined at the bedside. Patient is a poor historian. He reports that he came to the hospital due to shortness of breath. He also reports left-sided chest pain. He states the pain is only occurring when he takes a deep breath. He states the pain has been coming and going for a few months. Per nursing, patient was found to be hypoxic on room air this morning. DIAGNOSTICS: - EKG reveals sinus tachycardia with ST depression in V3V6. Baseline artifact.. - Chest xray coarse opacity seen throughout both lung vences which may be related to fibrosis versus interstitial pneumonia - Laboratory data: WBC 12.69. Hemoglobin 17.6. Platelet count 233. Sodium 140. Potassium 4.1. BUN 17. Creatinine 1.03. Troponin negative x 3 - Current home cardiac medications include lisinopril 10 mg daily, atorvastatin 40 mg daily, aspirin 81 mg daily. - Most recent echocardiogram obtained in March 2024 revealed ejection fraction 55 to 60%, no obvious regional wall motion abnormalities, valves not well-visualized - Cardiac catheterization history: Patient denies 08/28/2024 Patient underwent CTA yesterday revealing several scattered bilateral bland bsegmental pulmonary emboli. No evidence for right heart strain. Patient remains on IV heparin this morning. He reports improvement in his shortness of breath. He denies any chest pain or pressure. Echocardiogram completed revealing ejection fraction 55 to 60%, normal right ventricular size, unable to estimate right ventricular systolic pressure. 08/29/24 He is on BiPAP. He is not feeling well, as he is confined to bed. Feeling shortness of breath is somewhat better. Urine is dark red. 08/30/2024 He is not currently on BiPAP and is feeling better. No chest pain or pressure. Shortness of breath is stable. Patient is still significantly concerned about his dark urine. PHYSICAL EXAM: VITAL SIGNS: Reviewed. GENERAL: Well-developed in no acute distress. HEENT: Head is normocephalic. Pupils are equal, round. Sclerae anicteric. Mucous membranes of the mouth are moist. Neck supple. LUNGS: Respirations even and unlabored. Lungs essentially clear to auscultation bilaterally. HEART: Regular rate and rhythm. S1 and S2 heard. ABDOMEN: Soft. Nondistended. Nontender. EXTREMITIES: Normal range of motion. No clubbing or cyanosis. Peripheral pulses intact. No lower extremity edema NEUROLOGIC: Awake and alert. Oriented x 3. ASSESSMENT: Chest pain, pleuritic troponin negative x 3, ACS ruled out Bilateral pulmonary emboli Shortness of breath Severe COPD Nicotine dependence Physical debility, patient uses motorized wheelchair Hypertension Hyperlipidemia Obstructive sleep apnea History of intertrochanteric fracture, 03/2024 Nicotine dependence PLAN: Continue anticoagulation Pulmonary following Urology is following Cardiology to sign off. Please call with any questions or concerns. Follow-up in clinic in 1 week. Nurse practitioner note has been reviewed by Dr. Webster. Signing provider agrees with the documented findings, assessment, and plan of care documented by PURCHASING MANAGER as a scribe. Objective - Vital Signs Vital signs: Vital Signs Temp 97.9 F 08/30/24 07:30 Pulse 64 08/30/24 07:30 Resp 16 08/30/24 07:30 BP 123/64 08/30/24 07:30 Pulse Ox 96 08/30/24 07:30 FiO2 Intake & Output 08/29/24 08/30/24 08/30/24 18:59 06:59 18:59 Output Total 250 900 300 Balance -250 -900 -300 Output: Urine 250 900 300 Other: # Bowel Movements 0 - Labs CBC & Chem 7: 08/30/24 05:19 08/30/24 05:19 Labs: Abnormal Lab Results - Last 24 Hours (Table) 08/29/24 08/29/24 08/29/24 Range/Units 12:27 17:41 20:33 BUN/Creatinine Ratio (12.00-20.00) Ratio Glucose (70-110) mg/dL POC Glucose (mg/dL) 126 H 191 H 134 H (70-110) mg/dL Calcium (8.7-10.3) mg/dL 08/30/24 08/30/24 Range/Units 05:19 05:53 BUN/Creatinine Ratio 21.70 H (12.00-20.00) Ratio Glucose 131 H (70-110) mg/dL POC Glucose (mg/dL) 138 H (70-110) mg/dL Calcium 8.6 L (8.7-10.3) mg/dL Microbiology - Last 24 Hours (Table) 08/27/24 11:55 Blood Culture - Preliminary Blood
--- NOTE | 2024-08-30 15:24 | P.PN ---
Subjective Progress Note Date: 08/30/24 This is a 69-year-old male patient of Dr. Neff which we are covering for. He comes in initially minute with chest pain and shortness of breath was found to have bilateral pulmonary embolism has been transition off of the IV heparin and has been continued on oral Eliquis twice daily. Patient does relay that he has limited income resources and is concerned about the affordability of this medication on discharge. He has been continued on IV ceftriaxone as well as IV Solu-Medrol with concern for a COPD exacerbation and community-acquired pneumonia. Patient has been continued on CPAP states that he has been unable to sleep because of the beeping from the CPAP machine. He does relate that he cont inues to smoke cigarettes. His main complaint today is that his urine is a brown/red color has been ongoing for the last 5 days. Additionally he has not had a bowel movement he reports since admission. He does not want to take any laxatives or stool softeners as he does have difficulty with mobility uses a walker as well as an electric scooter and is concerned about being able to get into the bathroom. He has not been up out of bed. Review of Systems Constitutional: Denied any fatigue denied any fever. Cardio vascular: denied any chest pain, palpitations Gastrointestinal: denied any nausea, vomiting, diarrhea Pulmonary: Denied any shortness of breath cough Neurologic denied any new focal deficits All inpatient medications were reviewed and appropriate changes in these medications as dictated in the interval history and assessment and plan. PHYSICAL EXAMINATION: GENERAL: The patient is alert and oriented x3, not in any acute distress. Well developed, well nourished. HEENT: Pupils are round and equally reacting to light. EOMI. No scleral icterus. No conjunctival pallor. Normocephalic, atraumatic. No pharyngeal erythema. No thyromegaly. CARDIOVASCULAR: S1 and S2 present. No murmurs, rubs, or gallops. PULMONARY: Chest is clear to auscultation, no wheezing or crackles. ABDOMEN: Soft, nontender, nondistended, normoactive bowel sounds. No palpable organomegaly. MUSCULOSKELETAL: No joint swelling or deformity. EXTREMITIES: No cyanosis, clubbing, or pedal edema. NEUROLOGICAL: Gross neurological examination did not reveal any focal deficits. Diffuse weakness SKIN: No rashes. Assessment Chest pain, Pleuritic in nature, ACS ruled out Acute bilateral pulmonary embolism transitioned to oral eliquis twice daily Acute COPD exacerbation Severe oxygen dependent COPD Community acquired pneumonia Acute on chronic hypoxemic respiratory failure secondary to above Hypertension Left staghorn calculi Hx History of sleep apnea with CPAP use Hx of coronary artery disease Intertrochanteric femur fracture left sided s/p IM implant 03/2024 Ongoing nicotine dependency Chronic medical debility Obesity with NC 35.4 Plan Repeat urinalysis Urology follow up outpatient for the staghorn calculi once patient is able to come off anticoagulation Continue eliquis twice daily Cardiology has signed off and patient to follow up with Dr. Webster in the clinic in 1 week post discharge Pulmonology following Continue IV ceftriaxone Continue IV solumedrol Continue duonebs Nicotinue patch in place PT/OT consultation BMP/CBC in the AM The impression and plan of care has been dictated by Aimee Zhang, Nurse Practitioner as directed. Dr. Lencho MD I have performed a history and physical examination and medical decision making of this patient, discussed the same with the dictator, and agree with the dictators assessment and plan as written, documented as a scribe. Based on total visit time, I have performed more than 50% of this visit. Objective - Vital Signs Vital signs: Vital Signs Temp 97.9 F 08/30/24 07:30 Pulse 80 08/30/24 12:35 Resp 16 08/30/24 07:30 BP 123/64 08/30/24 07:30 Pulse Ox 96 08/30/24 07:30 FiO2 Intake & Output 08/29/24 08/30/24 08/30/24 18:59 06:59 18:59 Intake Total 240 Output Total 250 900 300 Balance -250 -900 -60 Intake: Oral 240 Output: Urine 250 900 300 Other: # Bowel Movements 0 - Labs CBC & Chem 7: 08/30/24 05:19 08/30/24 05:19 Labs: Abnormal Lab Results - Last 24 Hours (Table) 08/29/24 08/29/24 08/30/24 Range/Units 17:41 20:33 05:19 WBC 12.35 H (4.50-10.00) X 10*3/uL Immature Gran # 0.09 H (0.00-0.04) X 10*3/uL Neutrophils # 10.98 H (1.80-7.70) X 10*3/uL Lymphocytes # 0.59 L (0.90-5.00) X 10*3/uL Eosinophils # 0 L (0.04-0.35) X 10*3/uL BUN/Creatinine Ratio (12.00-20.00) Ratio Glucose (70-110) mg/dL POC Glucose (mg/dL) 191 H 134 H (70-110) mg/dL Calcium (8.7-10.3) mg/dL 08/30/24 08/30/24 Range/Units 05:19 05:53 WBC (4.50-10.00) X 10*3/uL Immature Gran # (0.00-0.04) X 10*3/uL Neutrophils # (1.80-7.70) X 10*3/uL Lymphocytes # (0.90-5.00) X 10*3/uL Eosinophils # (0.04-0.35) X 10*3/uL BUN/Creatinine Ratio 21.70 H (12.00-20.00) Ratio Glucose 131 H (70-110) mg/dL POC Glucose (mg/dL) 138 H (70-110) mg/dL Calcium 8.6 L (8.7-10.3) mg/dL Microbiology - Last 24 Hours (Table) 08/27/24 11:55 Blood Culture - Preliminary Blood Assessment and Plan Time with Patient: Greater than 30
[2024-08-30 15:32] LABS: Bilirubin,Urine Negative (Negative); Blood,Urine Large (Negative); Color,Urine Red; Glucose,Urine (UA) Negative (Negative); Ketones,Urine Negative (Negative); Leukocyte Esterase,Urine Small (Negative); Mucus,Urine Rare /hpf; Nitrite,Urine Negative (Negative); PH, Urine 6.0 (5.0-8.0); Protein,Urine 1+ (Negative); RBC,Urine >182 /hpf (0-5); Specific Gravity,Urine 1.020 (1.001-1.035); Squamous Epithelial Cell,Urine 3 /hpf (0-4); Urobilinogen,Urine <2.0 mg/dL (<2.0); WBC,Urine 25 /hpf (0-5)
[2024-08-30 17:06] LABS: Glucose,Whole Blood 154 mg/dL (70-110)
[2024-08-30 20:07] LABS: Glucose,Whole Blood 175 mg/dL (70-110)
[2024-08-31 06:18] LABS: Glucose,Whole Blood 129 mg/dL (70-110)
[2024-08-31 08:55] LABS: Basophils # (A) 0.02 X 10*3/uL (0.00-0.10); Basophils % (A) 0.2 %; Eosinophils # (A) 0.01 X 10*3/uL (0.04-0.35); Eosinophils % (A) 0.1 %; HCT 45.4 % (39.6-50.0); HGB 15.2 g/dL (13.0-17.0); Immature Grans, Automated 0.60 %; Lymphocytes # (A) 0.56 X 10*3/uL (0.90-5.00); Lymphocytes % (A) 5.1 %; MCH 31.4 pg (27.0-32.0); MCHC 33.5 g/dL (32.0-37.0); MCV 93.8 FL (80.0-97.0); Monocytes # (A) 0.53 X 10*3/uL (0.20-1.00); Monocytes % (A) 4.9 %; NRBC Per 100 WBC 0 X 10*3/uL (0.00-0.01); Neutrophils # (A) 9.71 X 10*3/uL (1.80-7.70); Neutrophils % (A) 89.1 %; Platelet Count 279 X 10*3/uL (140-440); RBC 4.84 X 10*6/uL (4.40-5.60); RDW 12.8 % (11.5-14.5); WBC 10.90 X 10*3/uL (4.50-10.00)
[2024-08-31 09:11] LABS: Anion Gap 12.30 mmol/L (4.00-12.00); BUN/Creat Ratio 21.80 Ratio (12.00-20.00); Blood Urea Nitrogen 21.8 mg/dL (9.0-27.0); Calcium 8.6 mg/dL (8.7-10.3); Carbon Dioxide 21.7 mmol/L (21.6-31.8); Chloride 107 mmol/L (96-109); Glucose 141 mg/dL (70-110); Potassium 4.3 mmol/L (3.5-5.5); Sodium 141 mmol/L (135-145)
--- NOTE | 2024-08-31 11:39 | P.PN ---
Subjective Progress Note Date: 08/31/24 Patient is a 69-year-old male presents department back on August with a chief complaint of left-sided chest pain which started abruptly overnight. Past medical history significant for hypertension, hyperlipidemia, COPD, obstructive sleep apnea, previous fall and left-sided hip fracture with IM implant fixation March,. Workup so far including an elevated D-dimer inciting a chest CT angiogram showing several scattered bilateral subsegmental pulmonary emboli. No CT evidence of right-sided. Additionally, small pleural with adjacent atelectasis. Labs reviewed. Troponins less than 0.012 x 3. NT-proBNP 668. Patient was previously started on IV heparin per protocol. He is currently being evaluated 6 floor. He is on 3 L/min nasal cannula. He does chronically wear oxygen at home. Does not appear in distress. Continues to have left-sided pleuritic-like chest pain. Denies any coughing, hemoptysis, fevers or chills. Denies any heart palpitations, lightheadedness or syncope. No previous history of DVT or PE. No recent hospitalization. He did go to [facility] following his left hip fracture and surgical repair back in March,. He left because he did not like the care. He has been fairly sedentary since then. No unilateral lower extremity edema. Blood pressure normotensive. Nontachycardic. Echocardiogram reviewed, preserved left ventricular ejection fraction, no valvular abnormalities, RVSP was not able to be estimated. Hemodynamics stable. The patient is seen today August 29, 2024 in follow-up of the regular medical floor. He is currently resting in bed. Awake and alert in no acute distress. Continues with a loose congested cough. Maintaining O2 saturations in the 90s on 3 L/min per nasal cannula. Alternating with CPAP. Follow-up chest x-ray reveals increasing patchy infiltrate in the left lower lobe suspicious for pneumonia. Blood culture pending. Glucose 108. Hemoglobin A1c 5.4. He remains on DuoNeb inhalation, Symbicort, Solu-Medrol. NicoDerm patch in place. He has been transition to Eliquis. Remains on ceftriaxone. The patient is seen today August 30, 2024 in follow-up on the regular medical floor. He is awake and alert in no acute distress. Currently resting in bed. Denies any worsening shortness of breath, cough or congestion. Maintaining O2 saturations in the 90s on 3 L/min per nasal cannula. He is utilizing CPAP through the night. Blood culture reveals no growth. Glucose 138. He remains on DuoNeb inhalations, Symbicort, Solu-Medrol. NicoDerm patch in place. Remains on ceftriaxone. Anticoagulated with Eliquis. The patient is seen today August 31, 2024 in follow-up on the regular medical floor. He is currently resting in bed. Awake and alert in no acute distress. Denies any worsening shortness of breath, cough or congestion. Maintaining good O2 saturations in the 90s on room air oxygen. He does utilize CPAP at night. He is afebrile. Hemodynamically stable. Blood cultures revealed no growth. White count 10.9. Hemoglobin 15.2. Platelets 279. Sodium 141. Potassium 4.3. Bicarb 22. BUN 22. Creatinine 1.0. Glucose 141. He remains on DuoNeb and elations, Symbicort, Solu-Medrol. NicoDerm patch in place. Anticoagulated with Eliquis. Remains on ceftriaxone. Objective - Vital Signs Vital signs: Vital Signs Temp 98.1 F 08/31/24 07:15 Pulse 61 08/31/24 07:15 Resp 16 08/31/24 07:15 BP 146/74 08/31/24 07:15 Pulse Ox 92 L 08/31/24 07:15 FiO2 Intake & Output 08/30/24 08/31/24 08/31/24 18:59 06:59 18:59 Intake Total 240 240 Output Total 420 1225 Balance -180 -1225 240 Intake: Oral 240 240 Output: Urine 420 1225 Other: # Voids 225 - Exam GENERAL EXAM: Alert, oriented 69-year-old obese male, resting in bed. CPAP throughout the night. Currently on room air oxygen, no acute distress. HEAD: Normocephalic and atraumatic EYES: Normal reaction of pupils, equal size. NOSE: Clear with pink turbinates. THROAT: No erythema or exudates. NECK: No masses, no JVD. CHEST: No chest wall deformity. LUNGS: Equal air entry with crackles in the left lung base. No conversational dyspnea or accessory muscle use. CVS: S1 and S2 normal with no audible murmur, regular rhythm. No extra heart sounds ABDOMEN: No hepatosplenomegaly, active bowel sounds, no guarding or rigidity. SPINE: No scoliosis or deformity SKIN: No rashes CENTRAL NERVOUS SYSTEM: No focal deficits, tone is normal in all 4 extremities. EXTREMITIES: There is no peripheral edema, clubbing, or cyanosis. Peripheral pulses are intact. - Labs CBC & Chem 7: 08/31/24 04:29 08/31/24 04:29 Labs: Abnormal Lab Results - Last 24 Hours (Table) 08/30/24 08/30/24 08/30/24 Range/Units 05:19 14:43 17:01 WBC 12.35 H (4.50-10.00) X 10*3/uL Immature Gran # 0.09 H (0.00-0.04) X 10*3/uL Neutrophils # 10.98 H (1.80-7.70) X 10*3/uL Lymphocytes # 0.59 L (0.90-5.00) X 10*3/uL Eosinophils # 0 L (0.04-0.35) X 10*3/uL Anion Gap (4.00-12.00) mmol/L BUN/Creatinine Ratio (12.00-20.00) Ratio Glucose (70-110) mg/dL POC Glucose (mg/dL) 154 H (70-110) mg/dL Calcium (8.7-10.3) mg/dL Urine Protein 1+ H (Negative) Urine Blood Large H (Negative) Ur Leukocyte Esterase Small H (Negative) Urine RBC >182 H (0-5) /hpf Urine WBC 25 H (0-5) /hpf Urine Mucus Rare H (None) /hpf 08/30/24 08/31/24 08/31/24 Range/Units 20:06 04:29 04:29 WBC 10.90 H (4.50-10.00) X 10*3/uL Immature Gran # 0.07 H (0.00-0.04) X 10*3/uL Neutrophils # 9.71 H (1.80-7.70) X 10*3/uL Lymphocytes # 0.56 L (0.90-5.00) X 10*3/uL Eosinophils # 0.01 L (0.04-0.35) X 10*3/uL Anion Gap 12.30 H (4.00-12.00) mmol/L BUN/Creatinine Ratio 21.80 H (12.00-20.00) Ratio Glucose 141 H (70-110) mg/dL POC Glucose (mg/dL) 175 H (70-110) mg/dL Calcium 8.6 L (8.7-10.3) mg/dL Urine Protein (Negative) Urine Blood (Negative) Ur Leukocyte Esterase (Negative) Urine RBC (0-5) /hpf Urine WBC (0-5) /hpf Urine Mucus (None) /hpf 08/31/24 Range/Units 06:17 WBC (4.50-10.00) X 10*3/uL Immature Gran # (0.00-0.04) X 10*3/uL Neutrophils # (1.80-7.70) X 10*3/uL Lymphocytes # (0.90-5.00) X 10*3/uL Eosinophils # (0.04-0.35) X 10*3/uL Anion Gap (4.00-12.00) mmol/L BUN/Creatinine Ratio (12.00-20.00) Ratio Glucose (70-110) mg/dL POC Glucose (mg/dL) 129 H (70-110) mg/dL Calcium (8.7-10.3) mg/dL Urine Protein (Negative) Urine Blood (Negative) Ur Leukocyte Esterase (Negative) Urine RBC (0-5) /hpf Urine WBC (0-5) /hpf Urine Mucus (None) /hpf Microbiology - Last 24 Hours (Table) 08/27/24 11:55 Blood Culture - Preliminary Blood Assessment and Plan Assessment: Bilateral acute pulmonary emboli, within the segmental branches of the right middle lobe, right lower lobe, left upper lobe, and left lower lobe pulmonary arteries. No CT evidence of right-sided heart strain. Transitioned from a heparin drip to Eliquis Acute on chronic hypoxic respiratory failure, secondary to above Chest pain, pleuritic, secondary to above. Improved History of left intertrochanteric femur fracture status post operative fixation of the left hip with intramedullary implant March, Severe oxygen dependent COPD, stable Chronic hypoxemic respiratory failure, chronically on 3 to 4 L nasal cannula at home Obstructive sleep apnea with home CPAP Left staghorn calculus Hypertension History of hyperlipidemia History of alcohol abuse Chronic nicotine dependence Obesity, BMI 35.4 kg/m Poor overall functional performance based on the above-mentioned multiple comorbidities Plan: The patient was seen and evaluated Labs and medications reviewed Stable on room air oxygen CPAP at night Cleared for discharge Continue his home oxygen Continue his home Trelegy Continue his home DuoNeb inhalations Continue Ventolin HFA inhaler as needed Continued on Eliquis Educated again regarding smoking cessation NicoDerm patch in place Follow-up in our office in 1 week This patient was seen independently by the pulmonary nurse practitioner addressing pulmonary issues I have personally seen and examined the patient, performed the documentation and the assessment and plan as written. Number of minutes spent on the visit: 25 Dictation was produced using [employer] dictation software. Please excuse any grammatical, word or spelling errors.
[2024-08-31 12:15] LABS: Glucose,Whole Blood 125 mg/dL (70-110)
--- NOTE | 2024-08-31 15:54 | P.PN ---
Subjective Progress Note Date: 08/31/24 This is a 69-year-old male patient of Dr. Neff which we are covering for. He comes in initially minute with chest pain and shortness of breath was found to have bilateral pulmonary embolism has been transition off of the IV heparin and has been continued on oral Eliquis twice daily. Patient does relay that he has limited income resources and is concerned about the affordability of this medication on discharge. He has been continued on IV ceftriaxone as well as IV Solu-Medrol with concern for a COPD exacerbation and community-acquired pneumonia. Patient has been continued on CPAP states that he has been unable to sleep because of the beeping from the CPAP machine. He does relate that he cont inues to smoke cigarettes. His main complaint today is that his urine is a brown/red color has been ongoing for the last 5 days. Additionally he has not had a bowel movement he reports since admission. He does not want to take any laxatives or stool softeners as he does have difficulty with mobility uses a walker as well as an electric scooter and is concerned about being able to get into the bathroom. He has not been up out of bed. 08/31/2024 Patient is evaluated in follow-up on the medical floor. He reports feeling less short of breath today. He continues on oral Eliquis. He does have hematuria with urinalysis revealing a large amount of blood. He was eval by urology recommending to monitor the patient and outpatient follow-up once he is able to come off of blood thinner for treatment of the staghorn calculi. Patient continues on IV Solu-Medrol. He is on CPAP as needed. He is pending PT OT evaluation. Review of Systems Constitutional: Denied any fatigue denied any fever. Cardio vascular: denied any chest pain, palpitations Gastrointestinal: denied any nausea, vomiting, diarrhea Pulmonary: Denied any shortness of breath cough Neurologic denied any new focal deficits All inpatient medications were reviewed and appropriate changes in these medications as dictated in the interval history and assessment and plan. PHYSICAL EXAMINATION: GENERAL: The patient is alert and oriented x3, not in any acute distress. Well developed, well nourished. HEENT: Pupils are round and equally reacting to light. EOMI. No scleral icterus. No conjunctival pallor. Normocephalic, atraumatic. No pharyngeal erythema. No thyromegaly. CARDIOVASCULAR: S1 and S2 present. No murmurs, rubs, or gallops. PULMONARY: Chest is clear to auscultation, no wheezing or crackles. ABDOMEN: Soft, nontender, nondistended, normoactive bowel sounds. No palpable organomegaly. MUSCULOSKELETAL: No joint swelling or deformity. EXTREMITIES: No cyanosis, clubbing, or pedal edema. NEUROLOGICAL: Gross neurological examination did not reveal any focal deficits. Diffuse weakness SKIN: No rashes. Assessment Chest pain, Pleuritic in nature, ACS ruled out Acute bilateral pulmonary embolism transitioned to oral eliquis twice daily Acute COPD exacerbation Severe oxygen dependent COPD Community acquired pneumonia Acute on chronic hypoxemic respiratory failure secondary to above Hypertension Left staghorn calculi Hx History of sleep apnea with CPAP use Hx of coronary artery disease Intertrochanteric femur fracture left sided s/p IM implant 03/2024 Ongoing nicotine dependency Chronic medical debility Obesity with PR 35.4 Plan Repeat urinalysis Urology follow up outpatient for the staghorn calculi once patient is able to come off anticoagulation Continue eliquis twice daily Cardiology has signed off and patient to follow up with Dr. Webster in the clinic in 1 week post discharge Pulmonology following Continue IV ceftriaxone Continue IV solumedrol Continue duonebs Nicotinue patch in place PT/OT consultation BMP/CBC in the AM The impression and plan of care has been dictated by Aimee Zhang, Nurse Practitioner as directed. Dr. Lencho MD I have performed a history and physical examination and medical decision making of this patient, discussed the same with the dictator, and agree with the dictators assessment and plan as written, documented as a scribe. Based on total visit time, I have performed more than 50% of this visit. Objective - Vital Signs Vital signs: Vital Signs Temp 97.6 F 08/31/24 14:00 Pulse 76 08/31/24 15:36 Resp 20 08/31/24 14:00 BP 108/62 08/31/24 14:00 Pulse Ox 93 L 08/31/24 14:00 FiO2 Intake & Output 08/30/24 08/31/24 08/31/24 18:59 06:59 18:59 Intake Total 240 420 Output Total 420 1225 Balance -180 -1225 420 Intake: Oral 240 420 Output: Urine 420 1225 Other: # Voids 225 - Labs CBC & Chem 7: 08/31/24 04:29 08/31/24 04:29 Labs: Abnormal Lab Results - Last 24 Hours (Table) 08/30/24 08/30/24 08/31/24 Range/Units 17:01 20:06 04:29 WBC 10.90 H (4.50-10.00) X 10*3/uL Immature Gran # 0.07 H (0.00-0.04) X 10*3/uL Neutrophils # 9.71 H (1.80-7.70) X 10*3/uL Lymphocytes # 0.56 L (0.90-5.00) X 10*3/uL Eosinophils # 0.01 L (0.04-0.35) X 10*3/uL Anion Gap (4.00-12.00) mmol/L BUN/Creatinine Ratio (12.00-20.00) Ratio Glucose (70-110) mg/dL POC Glucose (mg/dL) 154 H 175 H (70-110) mg/dL Calcium (8.7-10.3) mg/dL 08/31/24 08/31/24 08/31/24 Range/Units 04:29 06:17 12:14 WBC (4.50-10.00) X 10*3/uL Immature Gran # (0.00-0.04) X 10*3/uL Neutrophils # (1.80-7.70) X 10*3/uL Lymphocytes # (0.90-5.00) X 10*3/uL Eosinophils # (0.04-0.35) X 10*3/uL Anion Gap 12.30 H (4.00-12.00) mmol/L BUN/Creatinine Ratio 21.80 H (12.00-20.00) Ratio Glucose 141 H (70-110) mg/dL POC Glucose (mg/dL) 129 H 125 H (70-110) mg/dL Calcium 8.6 L (8.7-10.3) mg/dL Microbiology - Last 24 Hours (Table) 08/27/24 11:55 Blood Culture - Preliminary Blood Assessment and Plan Time with Patient: Less than 30
[2024-08-31 17:19] LABS: Glucose,Whole Blood 183 mg/dL (70-110)
--- NOTE | 2024-08-31 17:36 | P.PN ---
Subjective Progress Note Date: 08/31/24 Patient is experiencing gross hematuria, indicates he is urine is mainly dark brown, denies any clots or difficulty voiding. He is not having any flank pain. His hemoglobin is stable at 15.2.He is on eliquis for PE Objective - Vital Signs Vital signs: Vital Signs Temp 97.6 F 08/31/24 14:00 Pulse 72 08/31/24 15:53 Resp 20 08/31/24 14:00 BP 108/62 08/31/24 14:00 Pulse Ox 93 L 08/31/24 14:00 FiO2 Intake & Output 08/30/24 08/31/24 08/31/24 18:59 06:59 18:59 Intake Total 240 420 Output Total 420 1225 Balance -180 -1225 420 Intake: Oral 240 420 Output: Urine 420 1225 Other: # Voids 225 - Constitutional General appearance: Present: no acute distress - Gastrointestinal General gastrointestinal: Present: soft. Absent: distended, tenderness - Psychiatric Psychiatric: Present: A&O x's 3 - Labs CBC & Chem 7: 08/31/24 04:29 08/31/24 04:29 Labs: Abnormal Lab Results - Last 24 Hours (Table) 08/30/24 08/31/24 08/31/24 Range/Units 20:06 04:29 04:29 WBC 10.90 H (4.50-10.00) X 10*3/uL Immature Gran # 0.07 H (0.00-0.04) X 10*3/uL Neutrophils # 9.71 H (1.80-7.70) X 10*3/uL Lymphocytes # 0.56 L (0.90-5.00) X 10*3/uL Eosinophils # 0.01 L (0.04-0.35) X 10*3/uL Anion Gap 12.30 H (4.00-12.00) mmol/L BUN/Creatinine Ratio 21.80 H (12.00-20.00) Ratio Glucose 141 H (70-110) mg/dL POC Glucose (mg/dL) 175 H (70-110) mg/dL Calcium 8.6 L (8.7-10.3) mg/dL 08/31/24 08/31/24 08/31/24 Range/Units 06:17 12:14 17:18 WBC (4.50-10.00) X 10*3/uL Immature Gran # (0.00-0.04) X 10*3/uL Neutrophils # (1.80-7.70) X 10*3/uL Lymphocytes # (0.90-5.00) X 10*3/uL Eosinophils # (0.04-0.35) X 10*3/uL Anion Gap (4.00-12.00) mmol/L BUN/Creatinine Ratio (12.00-20.00) Ratio Glucose (70-110) mg/dL POC Glucose (mg/dL) 129 H 125 H 183 H (70-110) mg/dL Calcium (8.7-10.3) mg/dL Microbiology - Last 24 Hours (Table) 08/27/24 11:55 Blood Culture - Preliminary Blood Assessment and Plan Assessment: 69-year-old male admitted to the hospital with a PE, also history of a left staghorn calculi, given the acute PE at this point we will hold off any intervention for his staghorn until it is safe for him to discontinue anticoagulants, can follow-up as an outpatient for management of his staghorn. His gross hematuria is most likely secondary to his staghorn calculi. At this time he is having minimal hematuria, his hemoglobin is stable it is causing no difficulty voiding. From urology standpoint anticoagulation can be continued, he is stone can be addressed as an outpatient.
[2024-08-31 20:16] LABS: Glucose,Whole Blood 183 mg/dL (70-110)
[2024-09-01 05:47] LABS: Glucose,Whole Blood 113 mg/dL (70-110)
[2024-09-01] MEDS: predniSONE 20 MG TAB PO SCH (08:59)
[2024-09-01 12:16] LABS: Glucose,Whole Blood 152 mg/dL (70-110)
--- NOTE | 2024-09-01 13:09 | P.PN ---
Subjective Progress Note Date: 09/01/24 Patient is a 69-year-old male presents department back on August with a chief complaint of left-sided chest pain which started abruptly overnight. Past medical history significant for hypertension, hyperlipidemia, COPD, obstructive sleep apnea, previous fall and left-sided hip fracture with IM implant fixation March,. Workup so far including an elevated D-dimer inciting a chest CT angiogram showing several scattered bilateral subsegmental pulmonary emboli. No CT evidence of right-sided. Additionally, small pleural with adjacent atelectasis. Labs reviewed. Troponins less than 0.012 x 3. NT-proBNP 668. Patient was previously started on IV heparin per protocol. He is currently being evaluated 6 floor. He is on 3 L/min nasal cannula. He does chronically wear oxygen at home. Does not appear in distress. Continues to have left-sided pleuritic-like chest pain. Denies any coughing, hemoptysis, fevers or chills. Denies any heart palpitations, lightheadedness or syncope. No previous history of DVT or PE. No recent hospitalization. He did go to [facility] following his left hip fracture and surgical repair back in March,. He left because he did not like the care. He has been fairly sedentary since then. No unilateral lower extremity edema. Blood pressure normotensive. Nontachycardic. Echocardiogram reviewed, preserved left ventricular ejection fraction, no valvular abnormalities, RVSP was not able to be estimated. Hemodynamics stable. The patient is seen today August 29, 2024 in follow-up of the regular medical floor. He is currently resting in bed. Awake and alert in no acute distress. Continues with a loose congested cough. Maintaining O2 saturations in the 90s on 3 L/min per nasal cannula. Alternating with CPAP. Follow-up chest x-ray reveals increasing patchy infiltrate in the left lower lobe suspicious for pneumonia. Blood culture pending. Glucose 108. Hemoglobin A1c 5.4. He remains on DuoNeb inhalation, Symbicort, Solu-Medrol. NicoDerm patch in place. He has been transition to Eliquis. Remains on ceftriaxone. The patient is seen today August 30, 2024 in follow-up on the regular medical floor. He is awake and alert in no acute distress. Currently resting in bed. Denies any worsening shortness of breath, cough or congestion. Maintaining O2 saturations in the 90s on 3 L/min per nasal cannula. He is utilizing CPAP through the night. Blood culture reveals no growth. Glucose 138. He remains on DuoNeb inhalations, Symbicort, Solu-Medrol. NicoDerm patch in place. Remains on ceftriaxone. Anticoagulated with Eliquis. The patient is seen today August 31, 2024 in follow-up on the regular medical floor. He is currently resting in bed. Awake and alert in no acute distress. Denies any worsening shortness of breath, cough or congestion. Maintaining good O2 saturations in the 90s on room air oxygen. He does utilize CPAP at night. He is afebrile. Hemodynamically stable. Blood cultures revealed no growth. White count 10.9. Hemoglobin 15.2. Platelets 279. Sodium 141. Potassium 4.3. Bicarb 22. BUN 22. Creatinine 1.0. Glucose 141. He remains on DuoNeb and elations, Symbicort, Solu-Medrol. NicoDerm patch in place. Anticoagulated with Eliquis. Remains on ceftriaxone. The patient is seen today September 01, 2024 in follow-up on the regular medical floor. He is awake and alert in no acute distress. Resting fairly comfortably in bed. Maintaining O2 saturations in the 90s on 2 L/min per nasal cannula. Wearing CPAP throughout the night. He denies any worsening shortness of breath, cough or congestion. He has been afebrile. Hemodynamically stable. He remains on DuoNeb inhalations, Symbicort, Solu-Medrol. NicoDerm patch in place. Remains on ceftriaxone. Anticoagulated with Eliquis. Blood cultures revealed no growth. Glucose 152. Objective - Vital Signs Vital signs: Vital Signs Temp 97.4 F L 09/01/24 07:00 Pulse 72 09/01/24 11:57 Resp 22 09/01/24 07:00 BP 151/80 09/01/24 07:00 Pulse Ox 96 09/01/24 07:00 FiO2 Intake & Output 08/31/24 09/01/24 09/01/24 18:59 06:59 18:59 Intake Total 420 Output Total 340 1000 275 Balance 80 -1000 -275 Intake: Oral 420 Output: Urine 340 1000 275 Other: Voiding Method Urinal - Exam GENERAL EXAM: Alert, 69-year-old obese male, resting in bed. Wearing CPAP throughout the night. Currently on 2 L/min per nasal cannula, no acute distress. HEAD: Normocephalic and atraumatic EYES: Normal reaction of pupils, equal size. NOSE: Clear with pink turbinates. THROAT: No erythema or exudates. NECK: No masses, no JVD. CHEST: No chest wall deformity. LUNGS: Equal air entry with crackles in the left lung base. No conversational dyspnea or accessory muscle use. CVS: S1 and S2 normal with no audible murmur, regular rhythm. No extra heart sounds ABDOMEN: No hepatosplenomegaly, active bowel sounds, no guarding or rigidity. SPINE: No scoliosis or deformity SKIN: No rashes CENTRAL NERVOUS SYSTEM: No focal deficits, tone is normal in all 4 extremities. EXTREMITIES: There is no peripheral edema, clubbing, or cyanosis. Peripheral pulses are intact. - Labs CBC & Chem 7: 08/31/24 04:29 08/31/24 04:29 Labs: Abnormal Lab Results - Last 24 Hours (Table) 08/31/24 08/31/24 09/01/24 Range/Units 17:18 20:14 05:44 POC Glucose (mg/dL) 183 H 183 H 113 H (70-110) mg/dL 09/01/24 Range/Units 12:15 POC Glucose (mg/dL) 152 H (70-110) mg/dL Assessment and Plan Assessment: Bilateral acute pulmonary emboli, within the segmental branches of the right middle lobe, right lower lobe, left upper lobe, and left lower lobe pulmonary arteries. No CT evidence of right-sided heart strain. Transitioned from a heparin drip to Eliquis Acute on chronic hypoxic respiratory failure, secondary to above Chest pain, pleuritic, secondary to above. Improved History of left intertrochanteric femur fracture status post operative fixation of the left hip with intramedullary implant March, Severe oxygen dependent COPD, stable Chronic hypoxemic respiratory failure, chronically on 3 to 4 L nasal cannula at home Obstructive sleep apnea with home CPAP Left staghorn calculus Hypertension History of hyperlipidemia History of alcohol abuse Chronic nicotine dependence Obesity, BMI 35.4 kg/m Poor overall functional performance based on the above-mentioned multiple comorbidities Plan: The patient was seen and evaluated Labs and medications reviewed Cleared for discharge Continue his home oxygen Continue his home CPAP Continue his home Trelegy Continue his home DuoNeb inhalations Continue Ventolin HFA inhaler as needed Complete a prednisone taper Continued on Eliquis Educated again regarding smoking cessation NicoDerm patch in place Follow-up in our office in 1 week This patient was seen independently by the pulmonary nurse practitioner addressing pulmonary issues I have personally seen and examined the patient, performed the documentation and the assessment and plan as written. Number of minutes spent on the visit: 24 Dictation was produced using [employer] dictation software. Please excuse any grammatical, word or spelling errors.
[2024-09-01 14:31] VITALS: BP 129/66; PULSE 76; RESP 16; TEMP 97.7
[2024-09-01] MEDS ORDERED: APIXABAN 5 MG TAB PO SCH ×2 (21:00)
--- NOTE | 2024-09-03 01:03 | DS ---
DISCHARGE SUMMARY CHIEF COMPLAINT: Chest pain. HISTORY OF PRESENT ILLNESS AND PHYSICAL EXAMINATION: Details of this man's history and physical can be found in the initial workup. LABORATORY STUDIES: While he is in a hospital, he had laboratory studies, details of which can be found in the laboratory section of his chart. COURSE IN THE HOSPITAL: After admission, he was placed on bedrest, started on intravenous fluids and seen by Cardiology. It turns out that he had several pulmonary emboli. He is anticoagulated and he did well thereafter. He was not very cooperative and did not participate in physical therapy and ambulation. He was improving and doing well. It was felt that he could go home on the . He can go home on his usual activity, diet, medications along with apixaban 10 mg twice a day for the balance of 21 days and then it will be dropped down to 5 mg twice a day. He will be seen in the office in several days. FINAL DIAGNOSES: 1. Pulmonary emboli. 2. Chronic obstructive pulmonary disease. 3. Obesity. 4. Hypertension. OPERATIONS: None. CONSULTATIONS: Cardiology and Pulmonology. MMODL / IJN: [id number] /
== END 2024-09-01 14:50 | disposition home or self-care (01) | DRG 175 ==
LOC: EC 12:57 → 6NMEDSUR 16:41 → OBSVTOIN 16:42 → 6NMEDSUR 18:30
PROVIDERS: ADMIT Family Medicine; ATTEND Family Medicine
DX: I26.94 Multiple subsegmental thrombotic pulmonary emboli without acute cor pulmonale (principal); J18.9 Pneumonia, unspecified organism; J96.21 Acute and chronic respiratory failure with hypoxia; E86.0 Dehydration; Z99.81 Dependence on supplemental oxygen; J44.0 Chronic obstructive pulmonary disease with (acute) lower respiratory infection; E11.22 Type 2 diabetes mellitus with diabetic chronic kidney disease; I12.9 Hypertensive chronic kidney disease with stage 1 through stage 4 chronic kidney disease, or unspecified chronic kidney disease; E66.9 Obesity, unspecified; N18.9 Chronic kidney disease, unspecified; J44.1 Chronic obstructive pulmonary disease with (acute) exacerbation; J96.11 Chronic respiratory failure with hypoxia; E78.5 Hyperlipidemia, unspecified; G47.33 Obstructive sleep apnea (adult) (pediatric); F17.210 Nicotine dependence, cigarettes, uncomplicated; G89.29 Other chronic pain; I25.10 Atherosclerotic heart disease of native coronary artery without angina pectoris; R00.0 Tachycardia, unspecified; I25.2 Old myocardial infarction; N20.0 Calculus of kidney; R31.0 Gross hematuria; Z68.35 Body mass index [BMI] 35.0-35.9, adult; Z79.01 Long term (current) use of anticoagulants; Z79.82 Long term (current) use of aspirin; Z79.899 Other long term (current) drug therapy; Z87.442 Personal history of urinary calculi
CPT/HCPCS: 36415; 71045; 71275; 74174; 80048; 80053; 80061; 81001; 82150; 83036; 83605; 83690; 83880; 84145; 84484; 85025; 85379; 85610; 85730; 87040; 87636; 93005; 93306; 94640; 94660; 96361; 96374; 96375; 96376; 99285